=== PATIENT | female | born 1985 | race Caucasian/White ===

== ENCOUNTER 2021-10-20 10:38 | Outpatient (REF) | payer OTHER, SELFPAY | END 2021-10-20 10:39 | disposition home or self-care (01) | LOC: HO.LAB 10:38 | PROVIDERS: Visit Provider Internal Medicine | DX: Z20.822 Contact with and (suspected) exposure to COVID-19 (principal) | CPT/HCPCS: C9803; U0003; U0005 ==

== ENCOUNTER 2024-05-15 18:17 | Outpatient (REF) | payer SELFPAY ==
[2024-05-18 16:34] LABS: C. trachomatis RNA TMA NOT DETECTED (NOT DETECTED); N. gonorrhoeae RNA TMA NOT DETECTED (NOT DETECTED); Trichomonas (NAAT) NOT DETECTED (NOT DETECTED)
== END 2024-05-15 18:18 | disposition home or self-care (01) ==
LOC: HO.HHCLNP 18:17
PROVIDERS: Visit Provider Advanced Practice Midwife
DX: Z11.3 Encounter for screening for infections with a predominantly sexual mode of transmission (principal); Z12.4 Encounter for screening for malignant neoplasm of cervix
CPT/HCPCS: 36415; 87491; 87591; 87661

== ENCOUNTER 2024-05-16 13:27 | Outpatient (REF) | payer SELFPAY ==
[2024-05-17 08:43] LABS: HBS Num1 9.16 mIU/mL (0-7.99); HBc Num1 0.13 S/CO (0.00-0.79); HBsAGNum1 0.28 S/CO (0.00-0.99); HIV AB/AG Nonreactive (Nonreactive); HIV Num 1 0.05 S/CO (0.00-0.99); Hepatitis B Core Antibody Nonreactive (Nonreactive); Hepatitis B Surface Antigen Negative (Negative); ~Hepatitis C Antibody Nonreactive (Nonreactive)
[2024-05-17 08:46] LABS: Syphilis Screen Nonreactive (Nonreactive)
[2024-05-17 09:35] LABS: ~Hepatitis B Surface Antibody GRAYZONE (Nonreactive)
== END 2024-05-16 13:28 | disposition home or self-care (01) ==
LOC: HO.HHCL 13:27
PROVIDERS: Visit Provider Advanced Practice Midwife
DX: Z11.3 Encounter for screening for infections with a predominantly sexual mode of transmission (principal)
CPT/HCPCS: 36415; 86704; 86706; 86780; 86803; 87340; 87389

== ENCOUNTER 2024-06-21 10:53 | Outpatient (AMB) | payer OTHER, SELFPAY ==
--- NOTE | 2024-06-21 11:14 | A.OFFVIS_ITS ---
Vital Signs 3 06/21/24 11:20 Height 5 ft 1 in Weight 160 lb 4 oz BMI 30.3 BP 129/81 Blood Pressure Location Lt brachial Position Sitting Pulse 80 Intake Visit Reasons: bilateral breast mass Intake Note: Patient is seen in office for evaluation of a bilateral breast mass. Pt c/o: left breast mass has always been there, right breast mass for about 6 month with nipple discharge when squeezing, green , no odor, painful at times, had mammogram and ultrasound done at [facility] Lt b. 2 o'clock rt b. 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 For the past 6 months she has been having some greenish discharge with an area of swelling in the 9 to 10 o'clock position. The swelling increases in size and then with light pressure she is able to express the thick greenish appearing discharge. She occasionally will note bleeding with excessive squeezing. She reports a decrease in the size of the area of swelling after the discharge is noted with a decreased in the discomfort. The mass in the left breast is located at the 2 o'clock position close to the axilla and seems to increase in size with periods. The site is tender to palpation. She recently underwent mammogram and ultrasound at [facility] on 03/31/2024. This revealed no mammographic or sonographic evidence of malignancy in either breast. In the right there was a thickened areolar skin with a 3.3 x 0.6 x 2.0 cm in homogeneously hypoechoic nonvascular lesion at the 930 o'clock position along the interface between skin and breast parenchyma. This communicates with the nipple but does not clearly represent a duct. The appearance is most consistent with a complex fluid collection. There is no associated erythema or warmth to suggest abscess. consultation with a breast surgeon is recommended (BI-RADS 4). [facility] Surgical History History of 2 sections Social History Alcohol intake: current Patient Tobacco Use Status: Never used Tobacco Female Reproductive History Menstrual Age of Menarche: 16 Date of last menstrual period: 05/21/24 Total pregnancies: 2 Number of Living Children: 2 Review of Systems Const All systems reviewed & are unremarkable except as noted in HPI and below Denies chills, Denies fever(s), Denies headache(s), Denies poor appetite and Denies weakness ENT Denies headache(s) Card Denies chest pain, Denies irregular heart rhythm, Denies palpitations and Denies dyspnea Resp Denies cough, Denies excessive phlegm production and Denies dyspnea GI Denies abdominal pain, Denies bloating, Denies change in bowel habits, Denies constipation, Denies heartburn, Denies diarrhea, Denies nausea and Denies vomiting Denies urinary frequency and Reports nipple discharge Musc Denies back pain, Denies muscle weakness and Denies numbness Skin/Breast Reports breast swelling, Reports breast skin changes, Reports breast pain, Reports breast mass, Denies changing lesions, Reports nipple discharge and Denies unusual bruising Neuro Denies headache(s), Denies numbness, Denies paresthesias and Denies weakness Psych Denies anxiety and Denies depression Endo Denies palpitations Matt/Lymph Denies lymphadenopathy Physical Exam Const General: cooperative and no acute distress Nutritional Appearance: well nourished Orientation/consciousness: patient oriented x3 Limitations: no limitations HEENT Head: Yes normocephalic and Yes atraumatic Ears: hearing grossly normal bilaterally Chest Other: Left breast: No skin change, no nipple retraction, no nipple discharge, Palpable mass in the 2 o'clock position towards the axilla as noted below, no enlarged lymph nodes. Right breast: No skin change, no nipple retraction, palpable mass as noted below in the areola at the 9 to 10 o'clock position, somewhat fluctuant to palpation but nontender, no enlarged lymph nodes Chest/axillae images: 2 1. area of swelling in the 9-10 o'clock location involving the areolar skin, no erythema to indicate underlying abscess. Minimally tender to palpation. No hard mass noted. 2. Palpable discrete mass in the 2 o'clock position close to the axillary compartment, mobile within the breast tissue. Lesion is tender to palpation. May be an area of increased fibrocystic change or fibroadenoma. Surrounding breast tissue was very dense. Resp Effort & Inspection: normal respiratory effort, no audible wheezes, no cough and no respiratory distress Cardio Jugular venous distension: no JVD GI Inspection: Yes normal to inspection Skin Other: Warm, dry, no rash Neuro General: patient oriented x3 Extrem General: Yes no clubbing, cyanosis or edema Assessment & Plan Assessment & Plan (1) Bilateral breast lump: Code(s): N63.10 - Unspecified lump in the right breast, unspecified quadrant; N63.20 - Unspecified lump in the left breast, unspecified quadrant Category: Medical Plan 39-year-old female patient presenting with complaints of right nipple discharge with a palpable lump in the 9-10 o'clock position as well as a palpable lump in the left breast at the 2 o'clock position. Both findings are confirmed on physical examination. Review of the mammogram and ultrasound revealed no suspicious findings although a collection is identified in the right the areola as noted above. Although the areas appear benign by examination, I would recommend bilateral lumpectomy as a short-stay surgery. After discussion of the procedure, risks, and alternatives, she consents to the bilateral lumpectomy. Coding Level of Care Code New Pt Level 4 (30555) Diagnoses Bilateral breast lump N63.10; N63.20
[2024-06-21 11:20] VITALS: BP 129/81; PULSE 80; BMI 30.3
== END 2024-06-21 11:36 | disposition home or self-care (01) ==
PROVIDERS: Visit Provider Surgery
DX: N64.52 Nipple discharge (principal); N63.10 Unspecified lump in the right breast, unspecified quadrant; N63.20 Unspecified lump in the left breast, unspecified quadrant
CPT/HCPCS: 99204

== ENCOUNTER → 2024-06-21 10:53 | Outpatient (BNVA) | payer OTHER, SELFPAY | PROVIDERS: Visit Provider Surgery | DX: N63.21 Unspecified lump in the left breast, upper outer quadrant (principal); N63.15 Unspecified lump in the right breast, overlapping quadrants | CPT/HCPCS: 99202 ==

== ENCOUNTER 2024-07-03 14:17 | Emergency (ER) | payer OTHER, SELFPAY ==
--- NOTE | ~2024-07-03 | CT_ITS ---
EXAMINATION: HEAD CT WITHOUT CONTRAST CERVICAL SPINE CT WITHOUT CONTRAST CLINICAL INFORMATION: Headache COMPARISON: None. TECHNIQUE: Contiguous axial imaging of the head was performed without the administration of IV contrast. Axial multidetector volumetric images were also performed through the cervical spine without contrast. Multiplanar reconstructed images in coronal and sagittal orientations were submitted. DOSE: 859 mGy-cm FINDINGS: HEAD: There is no evidence of acute intracranial hemorrhage or edema is territorial infarction. No abnormal mass-effect or midline shift. No extra-axial fluid collections. [place] to white matter differentiation is well preserved. The ventricles are normal in size and configuration. No acute calvarial fracture. The sinuses and mastoid air cells are clear. CERVICAL SPINE: Vertebral body heights are maintained. No acute fracture is seen of the vertebral bodies or posterior elements. Vertebral alignment is normal. No subluxation. Straightening of the cervical curvature The craniocervical and atlantoaxial articulations are normal. Small corticated chronic appearing ossification inferior to the atlantodens articulation. Intervertebral disc spaces are maintained. The central bony canal is maintained. . No significant paravertebral soft tissue swelling. No suspicious thyroid findings.. Imaged portions of the lung apices are clear. CT/CT head/brain wo IV con IMPRESSION: 1. No CT evidence of acute intracranial hemorrhage or edema is territorial infarction. 2. No CT evidence of acute fracture or malalignment in the cervical spine.. Electronically signed by: Shane Busby MD 07/03/2024 06:52 PM EDT
--- NOTE | ~2024-07-03 | CT_ITS ---
EXAMINATION: HEAD CT WITHOUT CONTRAST CERVICAL SPINE CT WITHOUT CONTRAST CLINICAL INFORMATION: Headache COMPARISON: None. TECHNIQUE: Contiguous axial imaging of the head was performed without the administration of IV contrast. Axial multidetector volumetric images were also performed through the cervical spine without contrast. Multiplanar reconstructed images in coronal and sagittal orientations were submitted. DOSE: 859 mGy-cm FINDINGS: HEAD: There is no evidence of acute intracranial hemorrhage or edema is territorial infarction. No abnormal mass-effect or midline shift. No extra-axial fluid collections. [place] to white matter differentiation is well preserved. The ventricles are normal in size and configuration. No acute calvarial fracture. The sinuses and mastoid air cells are clear. CERVICAL SPINE: Vertebral body heights are maintained. No acute fracture is seen of the vertebral bodies or posterior elements. Vertebral alignment is normal. No subluxation. Straightening of the cervical curvature The craniocervical and atlantoaxial articulations are normal. Small corticated chronic appearing ossification inferior to the atlantodens articulation. Intervertebral disc spaces are maintained. The central bony canal is maintained. . No significant paravertebral soft tissue swelling. No suspicious thyroid findings.. Imaged portions of the lung apices are clear. CT/CT cervical spine wo IV con IMPRESSION: 1. No CT evidence of acute intracranial hemorrhage or edema is territorial infarction. 2. No CT evidence of acute fracture or malalignment in the cervical spine.. Electronically signed by: Shane Busby MD 07/03/2024 06:52 PM EDT
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
[2024-07-03 14:21] VITALS: BP 128/80; PULSE 91; RESP 18; TEMP 36.6; O2SAT 97; BMI 31.3
[2024-07-03 16:00] VITALS: BP 115/76; PULSE 84; RESP 18; TEMP 36.6; O2SAT 98
[2024-07-03 16:49] LABS: UPreg QC Valid YES; Urine Pregnancy NEGATIVE (NEGATIVE)
[2024-07-03 19:07] VITALS: BP 115/76; PULSE 84; RESP 18; TEMP 36.6; O2SAT 98
== END 2024-07-03 19:07 | disposition home or self-care (01) ==
PROVIDERS: Physician Assistant; Emergency Provider Emergency Medicine Emergency Medical Services; PCP Student in an Organized Health Care Education/Training Program
DX: S09.90XA Unspecified injury of head, initial encounter (principal); R51.9 Headache, unspecified; M54.2 Cervicalgia; V43.52XA Car driver injured in collision with other type car in traffic accident, initial encounter; Y93.89 Activity, other specified; Y92.488 Other paved roadways as the place of occurrence of the external cause; Y99.8 Other external cause status
CPT/HCPCS: 70450; 72125; 81025; 99283; 99284

== ENCOUNTER 2024-08-08 10:57 | Outpatient (REF) | payer OTHER, SELFPAY ==
[2024-08-09 09:01] LABS: HBS Num1 12.38 mIU/mL (0-7.99); ~Hepatitis B Surface Antibody REACTIVE (Nonreactive)
== END 2024-08-08 10:58 | disposition home or self-care (01) ==
LOC: HO.HHCL 10:57
PROVIDERS: Visit Provider Advanced Practice Midwife
DX: Z78.9 Other specified health status (principal)
CPT/HCPCS: 36415; 86706

== ENCOUNTER 2024-08-09 15:19 | Outpatient (REF) | payer OTHER, SELFPAY ==
[2024-08-09 16:07] LABS: MANUAL DIFF FLAG NO
[2024-08-09 16:18] LABS: Basophils Absolute Auto 0.1 X10*3/uL (0.0-0.2); Basophils Percent Auto 0.6 % (0-2); Eosinophils Absolute Auto 0.2 X10*3/uL (0.0-0.4); Hematocrit 45.2 % (37.0-47.0); Hemoglobin 14.6 g/dl (12.0-16.0); Imm Gran Abs Auto 0.04 X10*3/uL (0.00-0.03); Imm Gran Pct Auto 0.5 % (0.0-0.4); Lymphocytes Percent Auto 25.1 % (20-40); Mean Corpuscular HGB Conc 32.3 g/dl (31.0-35.0); Mean Platelet Volume 10.2 fL (9.4-12.3); Monocytes Absolute Auto 0.7 X10*3/uL (0.1-1.2); Monocytes Percent Auto 8.7 % (2-11); Neutrophils Absolute Auto 5.1 x10*3/uL (2.0-8.3); Neutrophils Percent Auto 63.1 % (45-73); Platelet Count 315 X10*3/uL (160-400); Red Blood Count 4.86 X10*6/uL (4.20-5.50); Red Cell Distribution Width 12.8 % (11.0-16.0); White Blood Count 8.1 X10*3/uL (4.8-10.8)
[2024-08-09 16:23] LABS: Estimated Average Glucose 105 mg/dL; Hemoglobin A1C 125.7292 umol/L; Hemoglobin A1c % 5.3 % (<6.0); Total Hemoglobin (HGBA1C) 3688.9095 umol/L
[2024-08-09 16:37] LABS: Anion Gap 14 (12-20); Blood Urea Nitrogen 9 mg/dL (9-16); Calcium 9.7 mg/dL (8.4-10.2); Carbon Dioxide 27 mmol/L (22-29); Chloride 103 mmol/L (96-108); Cholesterol 201 mg/dL (<200); Estimated Glomerular Filt Rate > 60; Glucose Random 98 mg/dL (60-115); HDL Cholesterol 54 mg/dL (>40); LDL Cholesterol Calculated 130 mg/dL (<100); Potassium 3.6 mmol/L (3.3-5.1); Sodium 140 mmol/L (135-145); Triglycerides 85 mg/dL (<150)
[2024-08-09 16:47] LABS: Vitamin D 25-OH Total 30.2 ng/mL (>30)
== END 2024-08-09 15:20 | disposition home or self-care (01) ==
LOC: HO.HHCL 15:19
PROVIDERS: Visit Provider Nurse Practitioner Family
DX: Z00.00 Encounter for general adult medical examination without abnormal findings (principal)
CPT/HCPCS: 36415; 80048; 80061; 82306; 83036; 85025

== ENCOUNTER 2024-08-22 07:10 | Day surgery (SDC) | payer OTHER, SELFPAY ==
[2024-08-16 16:45] VITALS: BMI 30.2
--- NOTE | 2024-08-17 14:08 | P.CONAN_ITS ---
Documented by User: Blank Iqbal NP 08/17/24 14:13 HPI - Anesthesia Eval Consult details Narrative: 39yo Bilateral Breast Lumpectomy Medically optimized [facility] Active Problems Active Problems: All Active Problems Bilateral breast lump (Acute) Past Medical History Medical History (Updated 08/16/24 @ 16:51 by Toshia Fuentes RN) No pertinent past medical history Surgical History Surgical History (Updated 08/16/24 @ 16:51 by Toshia Fuentes RN) Tubal ligation status History of 2 sections Social History Social History Alcohol intake: current Alcohol intake frequency: a few times a month Patient Tobacco Use Status: Never used Tobacco Use of substances other than those prescribed or required for medical reasons: Yes Substance Use Frequency: Daily Have you been hit, kicked, punched, or otherwise hurt by someone within the past year? If so, by whom?: No Are you DNR?: No Advance Directives: No Advance Directives Information Provided: Yes Advance Directives on File: No Recently lost weight without trying: No How much weight loss: Not applicable Eating poorly because of decreased appetite: No Nutrition screen score: 0 Nutrition Risks: No Nutritional Risk Patient : No : No Poor oral hygiene: Yes (missing top tooth x1) Meds Allergies Allergy/AdvReac Type Severity Reaction Status Date / Time No Known Allergies Allergy Verified 08/16/24 16:51 Exam Height,Weight and Vital Signs: Height 5 ft 1 in Weight 72.575 kg Pertinent Lab Results Pertinent Lab Results: Laboratory Tests 08/09/24 15:25 WBC 8.1 Hgb 14.6 Hct 45.2 Plt Count 315 Sodium 140 Potassium 3.6 Chloride 103 Carbon Dioxide 27 BUN 9 Creatinine 0.69 Narrative Narrative: EKG 08/2024 NSR low volt QRS Assessment and Plan Assessment Anesthesia Assessment: Chart Reviewed Documented by User: Flor Alcantara MD 08/22/24 08:15 [facility] Past Medical History Medical History (Updated 08/16/24 @ 16:51 by Toshia Fuentes RN) No pertinent past medical history Family History Family history of problems with anesthesia: No Surgical History Surgical History (Updated 08/16/24 @ 16:51 by Toshia Fuentes RN) Tubal ligation status History of 2 sections History of Problems with Anesthesia: No Social History Social History Alcohol intake: current Alcohol intake frequency: a few times a month Patient Tobacco Use Status: Never used Tobacco Use of substances other than those prescribed or required for medical reasons: Yes Substance Use Frequency: Daily Have you been hit, kicked, punched, or otherwise hurt by someone within the past year? If so, by whom?: No Are you DNR?: No Advance Directives: No Advance Directives Information Provided: Yes Advance Directives on File: No Recently lost weight without trying: No How much weight loss: Not applicable Eating poorly because of decreased appetite: No Nutrition screen score: 0 Nutrition Risks: No Nutritional Risk Patient : No : No Poor oral hygiene: Yes (missing top tooth x1) Meds Allergies Allergy/AdvReac Type Severity Reaction Status Date / Time No Known Allergies Allergy Verified 08/16/24 16:51 Exam Airway Mallampati Class: II (missing one tooth top left, denies anything loose) TM Dist: >3cm Neck ROM: Full Heart: rrr Lungs: cta Assessment and Plan Assessment Anesthesia Assessment: Anesthesia Plan Discussed Final Anesthetic Review Family History of Problems with Anesthesia: No History of Problems with Anesthesia: No NPO: Yes ASA Class: II Final Preanesthetic Review: No Changes in Pt Med Stat, Meds/Allgs Chart Reviewed and Consent Obtained/Reviewed Patient Risk: Low Procedure Risk: Low Anesthetic Plan Anesthetic Plan: GA Disposition: Standard PACU
[2024-08-22] VITALS (7 sets, daily range): BP systolic 109–161; BP diastolic 71–87; PULSE 74–99; RESP 16–20; TEMP 36.3–36.9; O2SAT 97–100
[2024-08-22] MEDS: Lactated Ringers 1,000 ML 100 ML IVCONT (07:48)
--- NOTE | 2024-08-22 07:51 | PC.NURSE ---
pt last smoked cigerette and marijuana 2 days ago and motrin 2 weeks last dose
--- NOTE | 2024-08-22 08:00 | MHC.SHP ---
Pre-Procedural Eval Section A - 24 Hr Update-Section A only Date of Service: 08/22/24 The patient is an INPATIENT: No Changes since office visit: Yes Patient answered all questions; No Cold of Flu in the past 2 weeks, No New Medical Problems and No Changes in Medication The patient has been examined within 24 hours of the surgical procedure. The History & Physical has been completed within 30 days and I have reviewed it.: No Section B - Complete if H&P > 30 days Chief Complaint: Unspecified lump in the right breast, unspecified Details of Present Illness: Changes since initial office visit. No new symptoms. Relevant Family History (Specify if Yes): No Relevant Social History: None Present Medications: see Short Stay Collaborative assessment Medical History: No relevant PMH History of Previous Operations: No relevant previous surgery Allergies: Allergies Allergy/AdvReac Type Severity Reaction Status Date / Time No Known Allergies Allergy Verified 08/16/24 16:51 Review of Systems Sugical H&P ROS: Negative: Constitution, Cardiovascular, Respiratory, Hem-Onc and Gastrointestinal Exam Surgical H&P Exam: Normal: Heart, Normal: Lungs, Normal: Abdomen and Normal: Skin Plan Diagnosis/Plan: Unchanged I have reviewed the history and physical and performed a pertinent physical examination on my patient. No changes have occurred unless specified. Time Spent With Patient Time: Total time managing care of this patient today ____ minutes.
--- NOTE | 2024-08-22 09:52 | W.PM.OPN ---
Operative Note Operative Note Date of Service: 08/22/24 Narrative: Preoperative diagnosis: Bilateral breast lumps Postoperative diagnosis: Same Procedure: Bilateral breast lumpectomy Surgeon: Stu Marmolejo MD Senior Strategy Analyst: Maria Victoria Crocker PA-C Anesthesia: General LMA Indications for procedure: 39-year-old female patient presenting with bilateral breast lumps including a palpable right breast mass located below the areola at the 9-12 o'clock location, tender to palpation measuring approximately 2 cm in diameter. A 2nd lesion in the left breast located in the 2 o'clock position a proximally 10 cm from the nipple also a proximally 2 cm in diameter, also tender to palpation. Workup with mammogram and ultrasound were negative for any suspicious findings. Patient requested excision of the 2 symptomatic breast lesions. Operative findings: Bilateral breast lumps as noted above, path pending Specimen: Bilateral breast lumps Estimated blood loss: 5 mL Complications: None Procedure details: Patient was brought to the OR and placed in a supine position. After administering general anesthesia the patient's bilateral breasts were prepped with ChloraPrep and draped in a sterile fashion. A surgical time-out was called and consent confirmed. Patient received preoperative antibiotics and Venodyne boots were in place. Beginning in the right breast local anesthesia was infiltrated between the 9 and 12:00 o'clock location in the areolar margin. An incision was then made in a curvilinear fashion at the margins of the areola. This was carried out through subcutaneous tissue. Superior and inferior skin flaps were then created with the electrocautery. Allis clamp was then used to grasp the palpable mass. Electrocautery was then used to dissect the mass from the surrounding subcutaneous and breast tissue. Hemostasis was assured at all times using electrocautery. The mass was passed off the table and sent to pathology for further examination. After assuring adequate hemostasis the deep breast tissue was reapproximated using interrupted 3-0 Polysorb sutures. Dermis was reapproximated using interrupted 3-0 Polysorb sutures. Skin was closed using a running subcuticular 4-0 Polysorb suture. Attention was then directed to the left breast. Palpable mass located in the 2 o'clock position was identified. Local anesthesia was then infiltrated transversely over the palpable mass. Incision was then made with a scalpel and carried out through subcutaneous tissue. Superior and inferior skin flaps were then created with electrocautery. The mass was then grasped with an Allis clamp and electrocautery used the dissected free from the surrounding breast tissue. Hemostasis was assured at all times using electrocautery. The mass was excised and sent to pathology for further examination. Wounds were then irrigated with saline solution and suctioned dry. Deep breast tissue was reapproximated using interrupted 3-0 Polysorb sutures. Dermis was reapproximated using interrupted 3-0 Polysorb sutures. Skin was then closed using a running subcuticular 4-0 Polysorb suture. Sterile dressings consisting of Steri-Strips, 2 x 2 gauze and Tegaderm were then applied. The patient tolerated the procedure well. Sponge, instrument, and needle counts reported as correct. The patient was transferred to PACU in stable condition.
== END 2024-08-22 11:30 | disposition home or self-care (01) ==
PROVIDERS: PCP Student in an Organized Health Care Education/Training Program; Visit Provider Surgery
PROC: (CPT 19301; principal; 2024-08-22 09:00)
DX: N64.89 Other specified disorders of breast (principal); N60.91 Unspecified benign mammary dysplasia of right breast; N60.82 Other benign mammary dysplasias of left breast; N64.52 Nipple discharge; Z98.890 Other specified postprocedural states; Z98.51 Tubal ligation status
CPT/HCPCS: 19301; 88305; 88307; 88341; 88342; J0690; J1100; J2003; J2250; J2405; J2704; J2795; J3010

== ENCOUNTER → 2024-08-22 07:10 | Outpatient (BNV) | payer OTHER, SELFPAY | PROVIDERS: PCP Student in an Organized Health Care Education/Training Program; Visit Provider Surgery | DX: N63.21 Unspecified lump in the left breast, upper outer quadrant (principal); N63.15 Unspecified lump in the right breast, overlapping quadrants | CPT/HCPCS: 19301 ==

== ENCOUNTER 2024-09-04 09:38 | Outpatient (AMB) | payer OTHER, SELFPAY ==
--- NOTE | 2024-09-04 09:38 | MHC.OFFVIS ---
Vital Signs 09/04/24 09:49 Height 5 ft 1 in Weight 161 lb BMI 30.4 BP 135/65 Blood Pressure Location Lt brachial Position Sitting Pulse 94 Intake Visit Reasons: S/P bilateral breast lumpectomy Intake Note: Patient is seen in office for post op assessment post bilateral lumpectomy. Patient c/o: no concerns regarding surgery surgery: 08/22/24 Server Programmer Required: No Accompanied by: Self / Same As Patient Allergies No Known Allergies Allergy (Verified 09/04/24 09:44) HPI Comments Details: 39-year-old female patient presenting for evaluation of bilateral breast masses. For the past 6 months she has been having some greenish discharge with an area of swelling in the 9 to 10 o'clock position. The swelling increases in size and then with light pressure she is able to express the thick greenish appearing discharge. She occasionally will note bleeding with excessive squeezing. She reports a decrease in the size of the area of swelling after the discharge is noted with a decreased in the discomfort. The mass in the left breast is located at the 2 o'clock position close to the axilla and seems to increase in size with periods. The site is tender to palpation. She recently underwent mammogram and ultrasound at [facility] on 03/31/2024. This revealed no mammographic or sonographic evidence of malignancy in either breast. In the right there was a thickened areolar skin with a 3.3 x 0.6 x 2.0 cm in homogeneously hypoechoic nonvascular lesion at the 930 o'clock position along the interface between skin and breast parenchyma. This communicates with the nipple but does not clearly represent a duct. The appearance is most consistent with a complex fluid collection. There is no associated erythema or warmth to suggest abscess. consultation with a breast surgeon is recommended (BI-RADS 4). She underwent a bilateral breast lumpectomy on 08/22/2024. Pathology revealed in the right breast focal atypical lobular hyperplasia along with chronic inflammation and granulation tissue, pseudoangiomatous stromal hyperplasia, fibrocystic change with the usual ductal hyperplasia and focal apocrine metaplasia. The left breast revealed pseudoangiomatous stromal hyperplasia and fibrocystic change along with periductal and Ramila lobular chronic inflammation. She returns today for wound check. [facility] Medical History (Updated 09/04/24 @ 09:51 by Stu Marmolejo MD) Atypical lobular hyperplasia (ALH) of right breast No pertinent past medical history Surgical History History of lumpectomy of both breasts (08/22/24) Tubal ligation status History of 2 sections Social History Alcohol intake: current Alcohol intake frequency: a few times a month Patient Tobacco Use Status: Never used Tobacco Female Reproductive History Menstrual Age of Menarche: 16 Physical Exam Chest Chest/axillae images: 1. Incision upper outer quadrant left breast is clean, dry, and intact 2. Incision upper outer quadrant areolar margin right breast is clean, dry, and intact. Assessment & Plan Assessment & Plan (1) Atypical lobular hyperplasia (ALH) of right breast: Code(s): N60.91 - Unspecified benign mammary dysplasia of right breast Category: Medical Plan 39-year-old female patient presenting with a palpable breast lump bilaterally returning following bilateral breast lumpectomies on 08/22/2024 for wound check. Pathology revealed right breast focal atypical lobular hyperplasia which places her at an increased risk for breast cancer. I recommended evaluation for risk reduction by Medical Oncology. She will also return in 6 months for clinical breast examination. Follow-up mammogram is recommended in 1 year. She expressed understanding and agrees with the plan. Coding Level of Care Code Global (47472) Diagnoses Atypical lobular hyperplasia (ALH) of right breast N60.91
[2024-09-04 09:49] VITALS: BP 135/65; PULSE 94; BMI 30.4
== END 2024-09-04 09:52 | disposition home or self-care (01) ==
LOC: HO.HGS 09:38
PROVIDERS: PCP Student in an Organized Health Care Education/Training Program; Visit Provider Surgery
DX: N60.91 Unspecified benign mammary dysplasia of right breast (principal)
CPT/HCPCS: 99024

== ENCOUNTER → 2024-09-04 09:38 | Outpatient (BNVA) | payer OTHER, SELFPAY | PROVIDERS: PCP Student in an Organized Health Care Education/Training Program; Visit Provider Surgery | DX: N60.91 Unspecified benign mammary dysplasia of right breast (principal); Z09 Encounter for follow-up examination after completed treatment for conditions other than malignant neoplasm; Z98.890 Other specified postprocedural states | CPT/HCPCS: 99212 ==

== ENCOUNTER → 2024-09-28 10:47 | Outpatient (BNV) | payer OTHER, SELFPAY | PROVIDERS: PCP Nurse Practitioner Family; Referring Provider Surgery; Visit Provider Internal Medicine Medical Oncology | DX: N60.81 Other benign mammary dysplasias of right breast (principal); N60.82 Other benign mammary dysplasias of left breast | CPT/HCPCS: 99204 ==

== ENCOUNTER 2024-11-28 13:25 | Outpatient (REF) | payer OTHER, SELFPAY ==
[2024-11-28 14:35] LABS: Bacterial Vaginosis PCR NEGATIVE (Negative); Candida Group PCR DETECTED (Not Detect); Candida glab krusei PCR NOT DETECTED (Not Detect); Trichomonas vaginalis PCR NOT DETECTED (Not Detect)
--- OUTSIDE RECORDS SUMMARY | 2024-11-28 15:35 | XMS_ITS | Clinical Summary ---
Author Organization [employer] Address [address] [facility] [address] [place] [address] Care Team Providers Care Barytes Grinder Name Role Phone Naa Ramírez HAIR SPRING WINDER Primary Care Provider [phone] Allergies No known active allergies Medications benzoyl peroxide (PanOxyl Foaming Wash) 10 % external washIndications: Hidradenitis suppurativa Apply topically Once per day. 227 g 1 4 09/07/20 25 Active minocycline 100 MG capsuleIndicatio ns:Hidradenitis suppurativa Take 1 capsule (100 mg) by mouth 2 times daily. 180 capsule 4 Active spironolactone (Aldactone) 100 MG tabletIndication s:Hidradenitis suppurativa Take 1 tablet (100 mg) by mouth Once per day. 90 tablet 2 4 Active tamoxifen (Nolvadex) 20 MG chemo tablet Take 1 tablet by mouth Once per day. 4 Active Active Problems Problem Noted Date Diagnosed Date Atypical lobular hyperplasia (ALH) of breast Healthcare maintenance 08/08/2024 Assessment & Plan (08/08/2024 12:09 PM EDT): Patient was seen for transfer and establishment of care today, main focus on preop. Flu and Tda vaccines given. Pap smear scheduled. Labs ordered Encounter for immunization 08/08/2024 Assessment & Plan (08/08/2024 12:03 PM EDT): Tdap and flu vaccine given. Mass of breast 08/08/2024 Assessment & Plan (08/08/2024 12:05 PM EDT): Please see preop notes Concussion with loss of consciousness 08/08/2024 Assessment & Plan (08/08/2024 12:03 PM EDT): Improving symptoms. Neuro check negative. Patient advised brain rest and to return to the office if symptoms worsens Preop examination 08/08/2024 Encounters Date Type Department Care Team Description 11/28/2024 10:00 AM EST Procedure Visit [address] [address] Naa Ramírez FNP Routine cervical smear (Primary Dx); Atypical lobular hyperplasia (ALH) of breast; Pelvic pain; Vaginal discharge 11/20/[address] [address] Mara Elder [place] Chart Prep 09/14/[address] [address] Olivia Rhoades [place] CHART PREP 09/07/2024 11:00 AM EDT Office Visit [address] [address] Zoraida Leslie MD Hidradenitis suppurativa (Primary Dx) 09/07/2024 Travel 09/05/2024 Travel 09/04/2024 Travel from Last 3 Months Immunizations Name Administration Dates Next Due Influenza, seasonal, injectable, preservative fr ee 08/08/2024 Tdap 08/08/2024 Family History Medical History Relation Name Comments Diabetes Father Relation Name Status Comments Father Social History Tobacco Use Types Packs/Day Years Used Date Smoking Tobacco: Never Smokeless Tobacco: Never Tobacco Cessation:Counseling Given: Not Answered Alcohol Use Standard Drinks/Week Comments Not Currently 0 (1 standard drink = 0.6 oz pure alcohol) Drinks a bottleof medium size vodka every weekend Depression Answer Date Recorded Patient Health Questionnaire-9 Score 0 08/08/2024 Patient Health Questionnaire-9 Score 0 08/08/2024 Last PHQ-9: Questionnaire Data Not on file 1 Housing Stability Answer Date Recorded What is your housing situation today? I have kyle sing 07/27/[address] you li ve. Do you have problems with any of the following? None of the above 07/27/2024 Food Insecurity Answer Date Recorded Within the past 12 months, y ou worried that your food would run out before you got money to buy more: Never True 07/27/2024 Within the past 12 months,th e food you bought just didn't last and you didn't have enough money to get more: Never True Transportation Answer Date Recorded In the past 12 months, has l ack of transportation kept you from medical appts, meetings, work or from getting things needed for daily living? No 07/27/2024 Utilities Answer Date Recorded In the past 12 months, has t he electric, gas, oil or water company threatened to shut off services in your home? No 07/27/2024 Depression Answer Date Recorded Patient Health Questionnaire-2 Score 0 08/08/2024 Internet Access Answer Date Recorded Internet Access Q1 Yes 07/27/2024 Internet Access Q2 Not on file 07/27/2024 Comments No Sex and Gender Information Value Date Recorded Sex Assigned at Female 09/06/2022 10:19 AM EDT Legal Sex Female 10:19 AM EDT Gender Identity Choose not to disclose 10:19 AM EDT Sexual Orientation Don't know 09/06/2022 10 :19 AM EDT Last Filed Vital Signs Vital Sign Reading Time Taken Comments Blood Pressure 127/81 11/28/2024 10:09 AM EST Pulse 90 11/28/2024 10:09 AM EST Temperature 36.9 ??C (98.4 ??F) 11/28/2024 10:[address] Respiratory Rate 18 11/28/2024 10:09 AM EST Oxygen Saturation 99% 11/28/2024 10:09 AM EST Inhaled Oxygen Concentration - - Weight 71.7 kg (158 lb) 11/28/2024 10:09 AM EST Height 154.9 cm (5' 1 ) 11/28/2024 10:09 AM EST Body Mass Index 29.85 11/28/2024 10:09 AM EST Plan of Treatment Upcoming Encounters Date Type Department Care Team (Late st Contact Info) Description 12/14/2024 2:15 PM EST Office Visit [facility] [address] [place] [address] Zoraida Leslie MD [address] [place] [address] Health Maintenance Due Date Last Done Comments Dental Oral Exam 1985 Dental Prophylaxis 1985 Dental X-Ray: Bitewings 1985 Dental X-Ray: Full Mouth 1985 Hepatitis A Vaccines (1 of 2 - Risk 2-dose series) 2004 Hepatitis B Vaccines (1 of 3 - 19+ 3-dose series) 2004 Pap Smear 2006 Cervical Cancer Screening 2015 HPV/Cotest 2015 COVID-19 Vaccine (2023-2 5 season) 2024 10/15/2021, 03/09/2021, 02/09/2021 SDOH Screening 07/27/2025 07/27/2024 Alcohol/Substance Use Screening 08/08/2025 08/08/2024 Depression Screening 08/08/2025 08/08/2024, 08/08/2024 Family Planning (PISQ) 08/08/2025 08/08/2024 Tobacco Screening 11/28/2025 11/28/2024 DTaP/Tdap/Td Vaccines (2 - T d or Tdap) 08/08/2034 08/08/2024 Zoster Vaccines (1 of 2) 2035 RSV Patients and Patients Aged 60 years or older (1 - 1-dose 75+ series) 2060 HIV Screening Completed 05/16/2024 Hepatitis C Screening Completed 05/16/2024 Influenza Vaccine Completed 08/08/2024 HIB Vaccines Aged Out No longer eligi ble based on patient's age to complete this topic HPV Vaccines Aged Out No longer eligi ble based on patient's age to complete this topic IPV Vaccines Aged Out No longer eligi ble based on patient's age to complete this topic Meningococcal Vaccine Aged Out No juan maggie eligible based on patient's age to complete this topic Pneumococcal Vaccine: Pediatrics (0 to 5 Years) and At-Risk Patients (6 to 64 Years) Aged Out No longer eligible b ased on patient's age to complete this topic RSV under 20 months Aged Out No longe r eligible based on patient's age to complete this topic Rotavirus Vaccines Aged Out No longer eligible based on patient's age to complete this topic Procedures Procedure Name Priority Date/Time Associated Diagnosis Comments BACTERIAL VAGINOSIS PANEL Routine 11/28/2024 11:15 AM EST Vaginal discharge HEPATITIS C AB W/REFL TO HCV RNA, QN, PCR Routine 05/16/2024 1:28 PM EDT Encntr screen for infections w sexl mode of transmiss HIV 1/2 ANTIGEN/ANTIBODY, FOURTH GENERATION W/RFL Routine 05/16/2024 1:28 PM EDT Encntr screen for infections w sexl mode of transmiss from Last 3 Months or Most Recently Relevant to Health Maintenance Results * (ABNORMAL) Bacterial Vaginosis Panel (11/28/2024 11:15 AM EST) TRICHOMONAS VAGINALIS DETECTION BY PCR NOT DETECTED Not Detect [facility] BACTERIAL VAGINOSIS DETECTION BY PCR NEGATIVE Negative [facility] Comment:The BV organism targ ets of the Xpert Xpress MVP test can becommensal in women; Xpert Xpress MVP positive results forbacterial vaginosis should be considered in conjunction withother clinical and patient information to determine thedisease status. Organisms that are not detected by the XpertXpress MVP test have also been reported to be associatedwith BV and aerobic vaginitis.The Xpert Xpress MVP test performance has not been evaluatedin patients under the age of 14. ADRIANA GROUP DETECTION BY PCR DETECTED(A) Not Detect [facility] Adriana glab krusei PCR NOT DETECTED Not Detect [facility] Swab Vaginal structure / Unknown 11/28/2024 11:15 AM EST 11/28/2024 1:31 PM EST us Naa Ramírez [facility]ER LAB MICROBIOLOGY - GENERAL ORD ERABLES Final Result [facility] [address] [place] [phone] * Hepatitis C Antibody with Reflex to HCV, RNA, Quantitative, Real-Time PCR (05/16/2024 1:28 PM EDT) Pathologist [facility] Hepatitis C Antibody Nonreactive Nonreactive [facility] Comment:Antibodies to HCV no t detected; does not exclude early acuteHCV infection. Blood Venous blood specimen / Unknown 05/16/2024 1:28 PM EDT 05/16/2024 3:51 PM EDT Evelyne Keita [facility] LAB BLOOD ORDERABLES Renuka l Result Performing Organization Address [facility] Co de Phone Number [facility] [address] [place] [phone] * HIV-1/2 Antigen and Antibodies, Fourth Generation, with Reflexes (05/16/2024 1:28 PM EDT) [facility] HIV AB/AG Nonreactive Nonreactive [facility] Comment:HIV-1 p24 Ag and/or HIV-1/HIV-2 Ab not detected.A test result that is nonreactive does not exclude thepossibility of exposure to or infection with HIV-1 and/orHIV-2. Nonreactive results in this assay for individualswith prior exposure to HIV-1 and/or HIV-2 may be due toantigen and antibody levels that are below the limit ofdetection of this assay.The Attributor HIV Ag/Ab Combo assay result andsupplemental assay results should be interpreted inconjunction with the patient's clinical presentation,history and other laboratory results. If the results areinconsistent with clinical evidence, additional testing issuggested to confirm the result. Blood Venous blood specimen / Unknown 05/16/2024 1:28 PM EDT 05/16/2024 3:[address] [facility]elyneg[facility]elle [facility] BLOOD ORDERABLES Renuka l Result Performing Organization Address [facility]/ZIP Co de Phone Number [facility] [address] [place] [address] [phone] from Last 3 Months or Most Recently Relevant to Health Maintenance Insurance [facility]SN [employer]IAL [facility] AD[place] Care Teams Barytes Grinder Relationship Specialty Start Date End Date Naa Ramírez FNP [address] [place] [phone] PCP - General Family Medicine 08/08/24
--- OUTSIDE RECORDS SUMMARY | 2024-11-28 15:35 | XMS_ITS | Encounter Summary ---
Author Organization [employer] Address [address] [facility] [address] [place] [address] Care Team Providers Care Retention Representative Name Role Phone Naa Ramírez CONTINUOUS PICKLING LINE PICKLER Primary Care Provider Encounter Details Date Type Department Care Team (Late Contact Info) Description 05/17/2024 Orders Only [facility] [address] [place] [phone] Evelyne Keita CNM [address] [place] [address] [phone] No history of hepatitis B vaccination (Primary Dx) Social History Tobacco Use Types Packs/Day Years Used Date Smoking Tobacco: Never Smokeless Tobacco: Never Alcohol Use Standard Drinks/Week Comments Yes 0 (1 standard drink = 0.6 oz pur e alcohol) Comments No Sex and Gender Information Value Date Recorded Sex Assigned at Female 09/06/2022 10:19 AM EDT Legal Sex Female 10:19 AM EDT Gender Identity Choose not to disclose 10:19 AM EDT Sexual Orientation Don't know 09/06/2022 10 :19 AM EDT documented as of this encounter Plan of Treatment Upcoming Encounters Date Type Department Care Team (Late Contact Info) Description 12/14/2024 2:15 PM EST Office Visit [facility] [address] [place] [phone] Zoraida Leslie MD [address] [place] [phone] documented as of this encounter Procedures Procedure Name Priority Date/Time Associated Diagnosis Comments HEPATITIS B SURFACE ANTIBODY, QUALITATIVE Routine 08/08/2024 11:03 AM EDT No history of hepatitis B vaccination documented in this encounter Results * Hepatitis B Surface Antibody, Qualitative (08/08/2024 11:03 AM EDT) ~Hepatitis B Surface Antibody REACTIVE Nonreactive [facility] Comment:REACTIVE: > 11.99 mI U/mL Blood Venous blood specimen / Unknown 08/08/2024 11:03 AM EDT 08/08/2024 1:43 PM EDT us Evelyne DONATO LAB BLOOD ORDERABLES Renuka del valle Result [facility] [address] [place] [phone] documented in this encounter Visit Diagnoses Diagnosis No history of hepatitis B vaccination- Primary documented in this encounter Care Teams Retention Representative Relationship Specialty Start Date End Date Naa Ramírez FNP [address] [place] [address] PCP - General Family Medicine 08/08/24 documented as of this encounter
--- OUTSIDE RECORDS SUMMARY | 2024-11-28 15:35 | XMS_ITS | Encounter Summary ---
Author Organization [employer] Address [address] [facility] [facility] [address] [place] [address] Care Team Providers Care Technical Translator Name Role Phone Naa Ramírez AUTOMATIC CLIPPER Primary Care Provider [phone] Encounter Details Date Type Department Care Team ([facility] Contact Info) Description 12/20/2022 Abstract [facility] [address] [place] [phone] Kamran Martinez, DMD [address] [place] [address] Social History Tobacco Use Types Packs/Day Years Used Date Smoking Tobacco: Never Smokeless Tobacco: Never Alcohol Use Standard Drinks/Week Comments Yes 0 (1 standard drink = 0.6 oz pur e alcohol) Comments Unknown Sex and Gender Information Value Date Recorded Sex Assigned at Female 09/06/2022 10:19 AM EDT Legal Sex Female 10:19 AM EDT Gender Identity Choose not to disclose 10:19 AM EDT Sexual Orientation Don't know 09/06/2022 10 :19 AM EDT COVID-19 Exposure Response Date Recorded In the last 10 days, have yo u been in contact with someone who was confirmed or suspected to have Coronavirus/COVID-19? No / Unsure 12/14/2022 10:00 AM EST documented as of this encounter Plan of Treatment Upcoming Encounters Date Type Department Care Team ([facility] Contact Info) Description 12/14/2024 2:15 PM EST Office Visit [facility] [address] [place] [phone] Zoraida Leslie MD [address] [place] [address] documented as of this encounter Visit Diagnoses Not on filedocumented in this encounter Care Teams Technical Translator Relationship Specialty Start Date End Date Naa Ramírez FNP [address] [place] [phone] PCP - General Family Medicine 08/08/24 documented as of this encounter
--- OUTSIDE RECORDS SUMMARY | 2024-11-28 15:35 | XMS_ITS | Encounter Summary ---
Author Organization [employer] Address [address] [place] [address] Care Team Providers Care Hand Bindery Assembly Worker Name Role Phone Naa Ramírez DIRECTOR SMB SALES Primary Care Provider Encounter Details Date Type Department Care Team ([facility] Contact Info) Description 02/14/2023 Abstract [facility] ADULT DENTAL [address] [place] [address] Kamran Martinez, DAVONTE [address] [place] [address] Social History Tobacco Use Types Packs/Day Years [...] suspected to have Coronavirus/COVID-19? No / Unsure 02/15/2023 8:56 AM EDT documented as of this encounter Plan of Treatment Upcoming Encounters Date Type Department Care Team ([facility] Contact Info) Description 12/14/2024 2:15 PM EST Office Visit [facility] MEDICINE [address] [place] [address] Zoraida Leslie MD [address] [place], [place] [phone] documented as of this encounter Visit Diagnoses Not on filedocumented in this encounter Care Teams Hand Bindery Assembly Worker Relationship Specialty Start Date End Date Naa Ramírez FNP [address] [place] [address] [phone] PCP - General Family Medicine 08/08/24 documented as of this encounter
--- OUTSIDE RECORDS SUMMARY | 2024-11-28 15:35 | XMS_ITS | Encounter Summary ---
Author Organization [employer] [facility] Address [address] [place] [address] 7t [place] [address] Care Team Providers Care Leverman Name Role Phone Naa Ramírez Primary Care Provider [phone] Reason for Referral * Imaging (Routine) - Authorized Specialty Diagnoses / Procedures Referred By Contac t Referred To Contact Radiology Diagnoses Pelvic pain Procedures US Pelvis Transvaginal Naa Ramírez FNP [address] [place] [address] Phone: tel: fax: [address] Phone: tel: fax: Referral ID Status Reason Start Date Expiration Date V isits Requested Visits Authorized [id number] Authorized 11/28/2024 11/28/2025 1 1 * Imaging (Urgent) - Authorized Specialty Diagnoses / Procedures Referred By Contac t Referred To Contact Radiology Diagnoses Pelvic pain Procedures Us Pelvis complete Naa Ramírez FNP [address] [place] [address] Phone: tel: fax: [address] Phone: tel: fax: Referral ID Status Reason Start Date Expiration Date V isits Requested Visits Authorized [id number] Authorized 11/28/2024 11/28/2025 1 1 Encounter Details Date Type Department Care Team (Latest Contact Info) Description 11/28/2024 10:00 AM EST Procedure Visit [facility] MEDICINE [address] [place] [address] Naa Ramírez FNP [address] [place], [place] [phone] Routine cervical smear (Primary Dx); Atypical lobular hyperplasia (ALH) of breast; Pelvic pain; Vaginal discharge Social History Tobacco Use Types Packs/Day Years Used Date Smoking Tobacco: Never Smokeless Tobacco: Never Alcohol Use Standard Drinks/Week Comments Not Currently 0 (1 standard drink = 0.6 oz pure alcohol) Drinks a bottleof medium size vodka every weekend Depression Answer Date Recorded Patient Health Questionnaire-9 Score 0 08/08/2024 Patient Health Questionnaire-9 Score 0 08/08/2024 Last PHQ-9: Questionnaire Data Not on file 1 Housing Stability Answer Date Recorded What is your housing situation today? I have kyle rankin 07/27/[address] you li [...] AM EDT documented as of this encounter Last Filed Vital Signs Vital Sign Reading [...] Mass Index 29.85 11/28/2024 10:09 AM EST documented in this encounter Plan of Treatment Upcoming Encounters Date Type Department Care Team (Late st Contact Info) Description 12/14/2024 2:15 PM EST Office Visit [facility] MEDICINE [address] [place] [address] Zoraida Leslie MD [address] [place] [address] Scheduled Orders Name Type Priority Associated Diagnoses Order Schedule Pap Smear Pathology and Cytology Routine Routine cervical smear Ordered: 11/28/2024 Us Pelvis complete Imaging Urgent Pelvic pain Expected: 11/28/2024, Expires: 11/28/2025 US Pelvis Transvaginal Imaging Routine Pelvic pain Expected: 11/28/2024, Expires: 11/28/2025 STI testing add on (NG, CT, Trich) Pathology and Cytology Routine Vaginal discharge Ordered: 11/28/2024 documented as of this encounter Procedures Procedure Name Priority Date/Time Associated Diagnosis Comments BACTERIAL VAGINOSIS PANEL Routine 11/28/2024 11:15 AM EST Vaginal discharge documented in this encounter Results * (ABNORMAL) Bacterial Vaginosis Panel (11/28/2024 11:15 AM EST) TRICHOMONAS VAGINALIS DETECTION BY PCR NOT DETECTED Not Detect [facility] BACTERIAL VAGINOSIS DETECTION BY PCR NEGATIVE Negative [facility] Comment:The BV organism targ ets of [...] GROUP DETECTION BY PCR DETECTED(A) Not Detect [facility] Adriana glab krusei PCR NOT DETECTED Not Detect [facility] Swab Vaginal structure / Unknown 11/28/2024 11:15 AM EST 11/28/2024 1:31 PM EST Naa [facility] MICROBIOLOGY - GENERAL ORD ERABLES Final Result [facility] [address] [place] [phone] documented in this encounter Visit Diagnoses Diagnosis Routine cervical smear- Primary Screening for malignant neoplasm of the cervix Atypical lobular hyperplasia (ALH) of breast Pelvic pain Vaginal discharge Leukorrhea, not specified as infective documented in this encounter Additional Health Concerns Assessment Noted Time PHQ-9 Depression Total Score: 0 08/08/20 8:59 AM EDT documented as of this encounter Care Teams Leverman Relationship Specialty Start Date End Date Naa Ramírez FNP [address] [place] [phone] PCP - General Family Medicine 08/08/24 documented as of this encounter
--- OUTSIDE RECORDS SUMMARY | 2024-11-28 15:35 | XMS_ITS | Encounter Summary ---
Author Organization [employer] Address [address] [place] [address] Care Team Providers Care Hospice Admitting Clerk Name Role Phone Naa Ramírez CLOTH COVERED HELMET PULLER Primary Care Provider [phone] Reason for Visit * Reason Onset Date Comments Chart Prep 11/20/2024 Encounter Details Date Type Department Care Team ([facility] Contact Info) Description 11/20/2024 Telephone [facility] MEDICINE [address] [place], [place] [phone] Mara Elder [place] Chart Prep Social History Tobacco Use Types Packs/Day Years [...] AM EDT documented as of this encounter Miscellaneous Notes * Telephone Encounter - Mara Elder [place] - 11/20/2024 10:26 AM EST Chart Prep Labs: done Images: done Vaccines due: Covid Due, Hep A Due, and Hep B Due Referrals: Breast Surgery completed Screenings: Not Applicable Overdue care gaps: None documented in this encounter Plan of Treatment Upcoming Encounters Date Type Department Care Team (Late st Contact Info) Description 12/14/2024 2:15 PM EST Office Visit [facility] MEDICINE [address] [place] [address] Zoraida Leslie MD [address] [place] [address] documented as of this encounter Visit Diagnoses Not on filedocumented in this encounter Additional Health Concerns Assessment Noted Time PHQ-9 Depression Total Score: 0 08/08/20 8:59 AM EDT documented as of this encounter Care Teams Hospice Admitting Clerk Relationship Specialty Start Date End Date Naa Ramírez FNP [address] [place] [address] PCP - General Family Medicine 08/08/24 documented as of this encounter
--- OUTSIDE RECORDS SUMMARY | 2024-11-28 15:36 | XMS_ITS | Encounter Summary ---
Author Organization [employer] [facility] Address [address] [facility] [address] [place] [address] Care Team Providers Care Jaw Skinner Name Role Phone Naa Ramírez Primary Care Provider [phone] Encounter Details Date Type Department Care Team (Latest Contact Info) Description 01/15/2021 Abstract [facility] CONVERSIONS Dental, Provider, DDS Social History Tobacco Use Types Packs/Day Years Used Date Smoking Tobacco: Never Assessed Comments Unknown Sex and Gender Information Value [...] Description 12/14/2024 2:15 PM EST Office Visit [facility] MEDICINE [address] [place] [address] Zoraida Leslie MD [address] [place] [address] documented as of this encounter Visit Diagnoses Not on filedocumented in this encounter Care Teams Jaw Skinner Relationship Specialty Start Date End Date Naa Ramírez FNP [address] [place] [address] PCP - General Family Medicine 08/08/24 documented as of this encounter
[2024-11-30 22:37] LABS: C. trachomatis RNA TMA NOT DETECTED (NOT DETECTED)
[2024-12-04 12:20] LABS: HPV Genotype 16 Negative (Negative); HPV Genotype 18 Negative (Negative); HPV High Risk Negative (Negative)
[2024-12-07 12:06] LABS: N. gonorrhoeae RNA TMA NOT DETECTED (NOT DETECTED)
[2024-12-07 12:07] LABS: Trichomonas (NAAT) NOT DETECTED
== END 2024-11-28 13:26 | disposition home or self-care (01) ==
LOC: HO.HHCLNP 13:25
PROVIDERS: Visit Provider Nurse Practitioner Family
DX: N89.8 Other specified noninflammatory disorders of vagina (principal); Z12.4 Encounter for screening for malignant neoplasm of cervix; Z11.51 Encounter for screening for human papillomavirus (HPV)
CPT/HCPCS: 81515; 87491; 87591; 87626; 87661; 88175

== ENCOUNTER → 2024-12-06 15:48 | Outpatient (BNV) | payer OTHER, SELFPAY | PROVIDERS: PCP Nurse Practitioner Family; Visit Provider Radiology Diagnostic Radiology | DX: N88.8 Other specified noninflammatory disorders of cervix uteri (principal) | CPT/HCPCS: 76830; 76856 ==

== ENCOUNTER 2024-12-28 11:22 | Outpatient (AMB) | payer OTHER, SELFPAY ==
--- NOTE | 2024-12-28 11:31 | MHC.OFFVIS ---
Vital Signs 12/28/24 11:39 Height 5 ft 1 in Weight 154 lb BMI 29.1 BP 136/76 Blood Pressure Location Lt brachial Position Sitting Pulse 113 H Intake Visit Reasons: recurrence breast lump Intake Note: Patient is seen in office for evaluation of a recurrent breast lump. Pt c/o: admits to redness, swelling, pain in the right breast, onset end of Nov, not on antbx, is on Tamoxifen side effects nausea and hot flashes 6m f/up sched:03/05/25 (B) Accordion Maker Required: Yes Accordion Maker Language: Veterinary Poultry Inspector Services: Accordion Maker Present Accordion Maker Name: Nereida CIFUENTES Information Interpreted: non-clinical & clinical Fiction And Nonfiction Writer Prose: Fiction And Nonfiction Writer Prose Present Accompanied by: Family/Other Allergies No Known Allergies Allergy (Verified 12/28/24 11:39) HPI Comments Details: 39-year-old female patient previously diagnosed with atypical lobular hyperplasia of the right breast returning now with pain and swelling in the right breast at the nipple-areolar complex which developed in 09/26/2024. She reports increased pain and swelling since then without any discharge from the nipple or previous incision. She denies any symptoms in the left breast. Her previous mammogram performed at [facility] on 03/31/2024 revealed no mammographic or sonographic evidence of malignancy in either breast. In the right breast an area of thickened areolar skin measuring 3.3 x 0.6 x 2.0 cm which was inhomogeneously hypoechoic, nonvascular lesion at the 9:30 o'clock position along the interface between skin and breast parenchyma. This communicates with the nipple but does not clearly represent a duct. She subsequently underwent excision of the palpable abnormality on 08/22/2024. Subsequent pathology revealed focal atypical lobular hyperplasia along with dense fibrosis, pseudoangiomatous stromal hyperplasia, and fibrocystic change. She was subsequently evaluated by Dr. Ott due to her high risk of breast cancerwas placed on tamoxifen 20 mg p.o. daily. Menarche age 16, she is 2 para 2. [facility] remaining lifetime risk of breast cancer is 36.3%. [facility] Medical History Atypical lobular hyperplasia (ALH) of right breast No pertinent past medical history Surgical History History of lumpectomy of both breasts (08/22/24) Tubal ligation status History of 2 sections Social History Alcohol intake: current Alcohol intake frequency: a few times a month Patient Tobacco Use Status: Never used Tobacco Female Reproductive History Menstrual Age of Menarche: 16 Review of Systems Const All systems reviewed & are unremarkable except as noted in HPI and below Denies chills, Denies fever(s), Denies headache(s), Denies poor appetite and Denies weakness ENT Denies headache(s) Card Denies chest pain, Denies irregular heart rhythm, Denies palpitations and Denies dyspnea Resp Denies cough, Denies excessive phlegm production and Denies dyspnea GI Denies abdominal pain, Denies bloating, Denies change in bowel habits, Denies constipation, Denies heartburn, Denies diarrhea, Denies nausea and Denies vomiting Denies urinary frequency and Reports nipple discharge Musc Denies back pain, Denies muscle weakness and Denies numbness Skin/Breast Reports breast swelling, Reports breast skin changes, Reports breast pain, Reports breast mass, Denies changing lesions, Reports nipple discharge and Denies unusual bruising Neuro Denies headache(s), Denies numbness, Denies paresthesias and Denies weakness Psych Denies anxiety and Denies depression Endo Denies palpitations Matt/Lymph Denies lymphadenopathy Physical Exam Vital Signs: Last Vital Signs Pulse 113 H 12/28/24 11:39 BP 136/76 12/28/24 11:39 BMI result Body Mass Index 29.1 Const General: cooperative and no acute distress Nutritional Appearance: well nourished Orientation/consciousness: patient oriented x3 Limitations: no limitations HEENT Head: Yes normocephalic and Yes atraumatic Ears: hearing grossly normal bilaterally Chest Other: Left breast: No skin change, no nipple retraction, no nipple discharge, well-healed incision upper outer quadrant Right breast: Well-healed periareolar incision in the upper outer quadrant with fullness below the nipple, tender to palpation. There is also redness in the skin at the upper inner quadrant as noted below. Chest/axillae images: 1. Area of redness upper inner quadrant, tender to palpation 2. Previous incision Ramila areolar upper outer quadrant with underlying palpable mass, tender to palpation Resp Effort & Inspection: normal respiratory effort, no audible wheezes, no cough and no respiratory distress Cardio Jugular venous distension: no JVD GI Inspection: Yes normal to inspection Skin Other: Warm, dry, no rash Neuro General: patient oriented x3 Extrem General: Yes no clubbing, cyanosis or edema Assessment & Plan Assessment & Plan (1) Atypical lobular hyperplasia (ALH) of right breast: Code(s): N60.91 - Unspecified benign mammary dysplasia of right breast Category: Medical (2) Lump of right breast: Code(s): N63.10 - Unspecified lump in the right breast, unspecified quadrant Category: Medical Qualifiers: Breast mass location: upper outer quadrant Qualified Code(s): N63.11 - Unspecified lump in the right breast, upper outer quadrant Plan 39-year-old female patient diagnosed with a focal atypical lobular hyperplasia of the right breast status post lumpectomy. She is currently on tamoxifen for risk reduction. She was determined to be at high risk for breast cancer. She is now symptomatic from the same location in the right breast therefore I recommended a diagnostic mammogram and ultrasound. She will also need breast MRI due to her high risk status. I will start her on antibiotics and have a return 1-2 weeks repeat examination and review of mammogram/ultrasound. She expressed understanding and agrees with the plan. Orders: Orders MM diagnostic mammo BI Today N60.91 - Unspecified benign mammary dysplasia of right breast, N63.10 - Unspecified lump in the right breast, unspecified quadrant US breast RT complete Today N60.91 - Unspecified benign mammary dysplasia of right breast, N63.10 - Unspecified lump in the right breast, unspecified quadrant Medications: New doxycycline hyclate 100 mg PO BID 20 tabs 0RF N63.10 - Unspecified lump in the right breast, unspecified quadrant Coding Level of Care Code Est Pt Level 3 (88537) Diagnoses Atypical lobular hyperplasia (ALH) of right breast N60.91 Mass of upper outer quadrant of right breast N63.11 Breast mass location: upper outer quadrant
[2024-12-28 11:39] VITALS: BP 136/76; PULSE 113; BMI 29.1
--- OUTSIDE RECORDS SUMMARY | 2024-12-28 12:28 | XMS_ITS | Clinical Summary ---
Author Organization [employer] Address [address] [facility] 7[address] [place] [address] Care Team Providers Care Vitamin Manager Name Role Phone Naa Ramírez HEAD END DESIZING MACHINE OPERATOR Primary Care Provider [phone] Allergies No known active allergies Medications benzoyl [...] by mouth Once per day. 4 Active terconazole (Terazol 7) 0.4 % vaginal creamIndications :Vaginal hiral Insert 1 applicator into the vagina at bedtime for 7 days. 45 g 5 12/11/19 25 Active Problems Problem Noted Date Diagnosed Date Routine cervical smear 12/02/2024 Assessment & Plan (12/02/2024 6:21 AM EST): Co test in 5 yrs if normal Abnormal breast exam 12/02/2024 Assessment & Plan (12/02/2024 7:19 AM EST): Bilateral soft, symmetrical pendulous, with no deformities. Skin warm, dry, absence of erythema, edema, or peau d orange appearance Palpable right breast mass located below the areola measuring approximately 2 cm in diameter Nipple-areola complex brown, flat, negative for discharge or concern for paget's disease Patient to call her oncologist and report mass Continue with your Tamoxifen, report side effects to your oncologist, Do not stop or change your dosage without telling your oncologist Vaginal discharge 12/02/2024 Assessment & Plan (12/02/2024 7:09 AM EST): Cream color discharge Will send culture and treat as indicated Pelvic pain 12/02/2024 Assessment & Plan (12/04/2024 4:58 AM EST): LLQ tenderness Abnormal pelvic exam 12/02/2024 Assessment & Plan (12/04/2024 4:58 AM EST): Positive LLQ tenderness Positive for creamy discharge Sample sent to lab Ultra sound complete and transvaginal ordered Treatment as indicated from lab and US Vaginal hiral 12/02/2024 Assessment & Plan (12/04/2024 5:00 AM EST): Positive vaginal hiral Start terconazole 0.4% 1 hali nightly x 7 nights. Atypical lobular hyperplasia (ALH) of breast Healthcare maintenance 08/08/2024 Assessment & Plan (08/08/2024 12:09 PM EDT): Patient was seen for transfer and establishment of care today, main focus on preop. Flu and Tda vaccines given. Pap smear scheduled. Labs ordered Encounter for immunization 08/08/2024 Assessment & Plan (08/08/2024 12:03 PM EDT): Tdap and flu vaccine given. Subareolar mass of right breast 08/08/2024 Assessment & Plan (12/02/2024 7:18 AM EST): Approximately 2 cm in diameter right breast mass below the areola at the 9-12 o'clock location. Patient to make appointment with her oncologist Assessment & Plan (08/08/2024 12:05 PM EDT): Please see preop notes Concussion with loss of consciousness 08/08/2024 Assessment & Plan (08/08/2024 12:03 PM EDT): Improving symptoms. Neuro check negative. Patient advised brain rest and to return to the office if symptoms worsens Preop examination 08/08/2024 Encounters Date Type Department Care Team Description 12/10/[address] [address] Mague Pearce, WINNIE 12/04/[address] [address] Delfina Juarez RN 11/28/2024 10:00 AM EST Procedure Visit [address] [address] Naa Ramírez FNP Routine cervical smear (Primary Dx); Pelvic pain; Vaginal discharge; Subareolar mass of right breast; Abnormal breast exam; Abnormal pelvic exam; Vaginal hiral 11/28/2024 Orders Only [address] [address] Naa Ramírez FNP 11/20/[address] [address] Mara Elder [place] Chart Prep from Last 3 Months Immunizations Name Administration [...] 11/28/2024 10:09 AM EST Plan of Treatment Health Maintenance Due Date Last Done Comments Dental Oral Exam 1985 Dental Prophylaxis 1985 Dental X-Ray: Bitewings 1985 Dental X-Ray: Full Mouth 1985 Hepatitis A Vaccines (1 of 2 - Risk 2-dose series) 2004 Hepatitis B Vaccines (1 of 3 - 19+ 3-dose series) 2004 SDOH Screening 07/27/2025 07/27/2024 Alcohol/Substance Use Screening 08/08/2025 08/08/2024 Depression Screening 08/08/2025 08/08/2024, 08/08/2024 Family Planning (PISQ) 08/08/2025 08/08/2024 Tobacco Screening 11/28/2025 11/28/2024 COVID-19 Vaccine (4 - 2023-2 5 season) 2025 10/15/2021, 03/09/2021, 02/09/2021 Postponed from 07/08/2024 (Patient Refused) Pap Smear 11/28/2027 11/28/2024 Cervical Cancer Screening 11/28/2029 HPV/Cotest 11/28/2029 11/28/2024 DTaP/Tdap/Td Vaccines (2 - T d [...] 5 Years) and At-Risk Patients (6 to 49) Years) Aged Out No longer eligible b ased on patient's age to complete this topic RSV under 20 months Aged Out No longe r eligible based on patient's age to complete this topic Rotavirus Vaccines Aged Out No longer eligible based on patient's age to complete this topic Procedures Procedure Name Priority Date/Time Associated Diagnosis Comments US PELVIS TRANSVAGINAL Routine 12/06/2024 3:52 PM EST Pelvic pain CHLAMYDIA/N. GONORRHOEAE AND T. VAGINALIS RNA, QUAL,TMA Routine 11/28/2024 11:15 AM EST Vaginal discharge PAP SMEAR Routine 11/28/2024 11:15 AM EST Routine cervical smear HPV DNA, LOW/HIGH RISK Routine 11/28/2024 11:15 AM EST BACTERIAL VAGINOSIS PANEL Routine 11/28/2024 11:15 AM [...] Recently Relevant to Health Maintenance Results * US Pelvis Transvaginal (12/06/2024 3:52 PM EST) Anatomical Region Laterality Modality Pelvis Ultrasound 12/06/2024 3:52 PM EST Narrative 12/07/2024 7:58 AM EST ? [facility] ?[address] ?[place] [address] ? Ultrasound Report ? Signed ? Patient: Everett,Areliz ?MR#: [id number] ?? 0923 ? : 1985 ?Acct:[id number] ? Age/Sex: 39 / F ?ADM Date: 01/30/25 ? Loc: HO.US ? Attending Dr: Naa FLANAGAN ? Ordering Physician: Naa Ramírez ?? Date of Service: 12/06/24 ?? Procedure(s): US pelvic and transvaginal ?? Accession Number(s): [id number] ? cc: Naa Ramírez ? EXAMINATION: ? US PELVIS ? CLINICAL INFORMATION: ? Left lower quadrant pain ? COMPARISON: ?? None available. ? TECHNIQUE: ?? Ultrasound of the pelvis is performed using both transabdominal and ?? transvaginal transducers along with Doppler. Transvaginal imaging is ?? performed due to inadequate visualization transabdominally. ? FINDINGS: ?? Uterus: ?? The uterus is anteverted and measures 10.6 x 4.3 x 4.3 cm. ? The double wall endometrial thickness is 7.0 mm. ? The uterus is smooth in contour and has normal myometrial echogenicity. ?No visible fibroid. ? There are small nabothian cysts in the cervix. ? Adnexa: ?? Both ovaries are visualized. There is normal color flow to the adnexa. ?? There is no ovarian torsion. ??There is no pelvic ascites or fluid ?? collection noted. ? Right ovary measures 3.9 x 2.4 x 1.7 cm. Volume 8.3 mL. There is ? irregular shape corpus luteal cyst measuring 1.4 x 1.5 x 1.0 cm. ? Left ovary measures 2.3 x 1.8 x 1.7 cm. Volume 3.7 mL . ? US/US pelvic and transvaginal ?? IMPRESSION: ?? Nabothian cysts in cervix. ? Uterus unremarkable. ? Small corpus luteal cyst right ovary. ? Electronically signed by: ??James Juárez MD ??12/07/2024 07:55 AM EST RP ? Dictated By: ?Marquita,James S MD ? Signed By: ?<Electronically signed by James S Marquita MD in OV> ?12/07/24 0755 ? DD/ 1552 ? TD/TT: 12/06/24 1603 ? Carton Counter Feeder: MSM ? Procedure Note Mercedes Hendrix - 12/07/[address] [address] Ultrasound Report Signed Patient: Rasta Floyd#: [id number] 0923 : 1985Acct:[id number] Age/Sex: 39 / FADM Date: 12/06/24 Loc: HO.US Attending Dr: Naa FLANAGAN Ordering Physician: Naa Ramírez Date of Service: 12/06/24 Procedure(s): US pelvic and transvaginal Accession Number(s): [id number] cc: Naa Ramírez EXAMINATION: US PELVIS CLINICAL INFORMATION: Left lower quadrant pain COMPARISON: None available. TECHNIQUE: Ultrasound of the pelvis is performed using both transabdominal and transvaginal transducers along with Doppler. Transvaginal imaging is performed due to inadequate visualization transabdominally. FINDINGS: Uterus: The uterus is anteverted and measures 10.6 x 4.3 x 4.3 cm. The double wall endometrial thickness is 7.0 mm. The uterus is smooth in contour and has normal myometrial echogenicity. No visible fibroid. There are small nabothian cysts in the cervix. Adnexa: Both ovaries are visualized. There is normal color flow to the adnexa. There is no ovarian torsion. There is no pelvic ascites or fluid collection noted. Right ovary measures 3.9 x 2.4 x 1.7 cm. Volume 8.3 mL. There is irregular shape corpus luteal cyst measuring 1.4 x 1.5 x 1.0 cm. Left ovary measures 2.3 x 1.8 x 1.7 cm. Volume 3.7 mL . US/US pelvic and transvaginal IMPRESSION: Nabothian cysts in cervix. Uterus unremarkable. Small corpus luteal cyst right ovary. Electronically signed by: James Juárez MD 12/07/2024 07:55 AM EST Dictated By: James Juárez MD Signed By: <Electronically signed by James Juárez MD in OV> 12/07/24 0757 DD/ 1552 TD/TT: 12/06/24 1603 Carton Counter Feeder: MATEUS Naa FLANAGAN IMG US PROCEDURES Final Result * STI testing add on (NG, CT, Trich) (11/28/2024 11:15 AM EST) Trichomonas (NAAT) NOT DETECTED [facility] Comment:TRICHOMONAS VAGINALI S RNA, QL TMA: NOT DETECTEDFor additional information, please refer tohttp://[employer]/faq/Trichomonastma(This link is being provided for informational/educational purposes only.)Test performed by: [facility], [email or web address] [address] [place] [address], 3rd floor, [place] [address] Director: Florencia Zeng MD CLIA: [id number] CTNG Ref Lab NOT DETECTED NOT DETECTED [facility] NG Ref Lab NOT DETECTED NOT DETECTED [facility] Comment:The analytical perfo rmance characteristics of thisassay, when used to test SurePath(TM) specimens have beendetermined by [facility]. The modifications havenot been cleared or approved by the FDA. This assay hasbeen validated pursuant to the CLIA regulations and isused for clinical purposes.For additional information, please refer tohttps://[employer]/faq/YOO895(This link is being provided for information/educational purposes only.) Swab Cervix uteri structure / Unknown 11/28/2024 11:15 AM EST 11/28/2024 1:31 PM EST Narrative [facility] - 12/07/2024 12:09 PM EST Collection Date: [id number] by: MARTIN Smithurccarlton: Cervix Naa Ramírez [facility] CYTOLOGY ORDERABLES Edited Result - Final [facility] [address] [place] [phone] * (ABNORMAL) Bacterial Vaginosis Panel (11/28/2024 11:15 AM EST) TRICHOMONAS VAGINALIS DETECTION BY PCR NOT DETECTED Not Detect [facility] BACTERIAL VAGINOSIS DETECTION BY PCR NEGATIVE Negative [facility] Comment:The BV organism targ ets [...] evaluatedin patients under the age of 14. HIRAL GROUP DETECTION BY PCR DETECTED(A) Not Detect [facility] Hiral glab krusei PCR NOT DETECTED Not Detect [facility] Swab Vaginal structure / Unknown 11/28/2024 11:15 AM EST 11/28/2024 1:31 PM EST [facility] MICROBIOLOGY - GENERAL ORD ERABLES Final Result [facility] [address] [place] [phone] * HPV DNA, Low/High Risk (11/28/2024 11:15 AM EST) HPV High Risk Negative Negative [facility] HPV Genotype 16 Negative Negative [facility] HPV Genotype 18 Negative Negative [facility] Comment:HPV testing performe d at [facility] (CLIA#[id number]), [address] [place] [address].Testing for HPV was performed using the [employer] DESIRE 6800system. The presence of HPV in the female genital tract isassociated with a number of diseases, including cervicalcarcinoma. The HPV DNA high risk pool tests for HPV 31, 33,35, 39, 45, 51, 52, 56, 58, 59, 66 and 68. The testing forHPV 16 and 18 genotypes has also been performed. A positiveresult indicates detection of nucleic acid sequences fromone or more subtypes, whereas a negative result indicatessuch sequences were not detected. 11/28/2024 11:1 5 AM EST 11/28/2024 2:00 PM EST [facility] BLOOD ORDERABLES Final Res ult [facility] [address] [place] [address] [phone] * Pap Smear (11/28/2024 11:15 AM EST) Swab Cervix uteri structure / Unknown 11/28/2024 11:15 AM EST 11/28/2024 2:00 PM EST Narrative [facility] - 12/04/2024 10:17 AM EST ----- ------- Name: Lazaro Floyd ? Age/Sex: 39/F ? : 1985 Unit#: [id number] ?? Attend Dr: Naa Ramírez ?Re11/28/24 ?Status: DEP REF ? Location: HO.HHCLNP ? Disch: ? ----- ------- SPEC : [id number] ? RECD: 11/28/24-1400 ? STATUS: ??SOUT ? REQ NUM: [id number] ? JYOTI: 11/28/24-1115 ? SUBM DR: Naa Ramírez HEAD END DESIZING MACHINE OPERATOR ? ENTERED: ??11/28/24-1409 ?SP TYPE: Pap Smr ?OTHR DR: ? ORDERED: ??Pap Smear ? Interpretation ?? Satisfactory for evaluation. ?? Negative for intraepithelial lesion or malignancy. ?? Fungal organisms consistent with Hiral species. ? HPV High Risk: ??Negative ? HPV Genotyping 16: ??Negative ?? HPV Genotyping 18: ??Negative ?Clinical Information LMP: 11/12/2024 Previous PAP test: Unknown date, remote hx of abnormal ? Material Received ?? ThinPrep-Cervical ----- ------- Signed (signature on file) AGATHA Carranza (ASCP) 12/04/24 1017 ? ----- ------- ? END OF REPORT ? us Naa Ramírez HEAD END DESIZING MACHINE OPERATOR LAB CYTOLOGY ORDERABLES Final Result Performing Organization Address City/[facility]/ZIP Co de Phone Number [facility] [address] [place] [address] [phone] * Hepatitis C Antibody with Reflex to HCV, RNA, Quantitative, Real-Time PCR (05/16/2024 1:28 PM EDT) Pathologist [facility] Hepatitis C Antibody Nonreactive Nonreactive [facility] Comment:Antibodies to HCV no t detected; does not exclude early acuteHCV infection. Blood Venous blood specimen / Unknown 05/16/2024 1:28 PM EDT 05/16/2024 3:51 PM EDT Evelyne Keita [facility] BLOOD ORDERABLES Renuka l Result Performing Organization Address [facility]/ZIP Co de Phone Number [facility] [address] [place] [address] [phone] * HIV-1/2 Antigen and Antibodies, Fourth Generation, with Reflexes (05/16/2024 1:28 PM EDT) HIV AB/AG Nonreactive Nonreactive [facility] Comment:HIV-1 p24 Ag and/or HIV-1/HIV-2 Ab not detected.A test result that is nonreactive does not exclude thepossibility of exposure to or infection with HIV-1 and/orHIV-2. Nonreactive results in this assay for individualswith prior exposure to HIV-1 and/or HIV-2 may be due toantigen and antibody levels that are below the limit ofdetection of this assay.The [employer] HIV Ag/Ab Combo assay result andsupplemental assay results should be interpreted inconjunction with the patient's clinical presentation,history and other laboratory results. If the results areinconsistent with clinical evidence, additional testing issuggested to confirm the result. Blood Venous blood specimen / Unknown 05/16/2024 1:28 PM EDT 05/16/2024 3:51 PM EDT Evelyne Keita [facility] BLOOD ORDERABLES Renuka eligio Result [facility] [address] [place] [phone] [phone] from Last 3 Months or Most Recently Relevant to Health Maintenance Insurance [employer] [facility] AD[place] Care Teams Vitamin Manager Relationship Specialty Start Date End Date Naa Ramírez FNP [address] [place] [address] PCP - General Family Medicine 08/08/24
--- OUTSIDE RECORDS SUMMARY | 2024-12-28 12:28 | XMS_ITS | Encounter Summary ---
Author Organization [employer] Address [address] 7[address] [place] [address] Care Team Providers Care Manufacturing Supervisor Name Role Phone Naa Ramírez ROAD OILING TRUCK DRIVER Primary Care Provider [phone] Encounter Details Date Type Department Care Team ([facility] st Contact Info) Description 12/04/2024 Telephone [facility] [address] [place] [address] Delfina Juarez, RN Social History Tobacco Use Types Packs/Day Years [...] your housing situation today? I have kyle massiel 07/27/[address] you li [...] encounter Miscellaneous Notes * Telephone Encounter - Delfina Juarez RN - 12/04/2024 9:37 AM EST Tc to pt via bls id: [id number] to let them know per PCP Can you please advise Nadeem that her vaginal discharge swab test came back positive for Candidiasis and I have sent vaginal treatment foryeast terconazole 0.4% 1 hali nightly x 7 nights to her pharmacy. Also remind her it is important for her to follow up with her oncologist and breast surgeon about the new mass on her breast. Can you please also do a telephone call about 10 -14 days to see if her vaginal discharge and pelvic has improved if not please schedule her for a visit with me or any available provider. Thank you No answer, lvm to return call and ask to speak to [place] team nurses. * Telephone Encounter - Delfina Juarez RN - 12/04/2024 9:37 AM EST ----- Message from Naa Ramírez sent at 12/04/2024 5:19 AM EST ----- Can you please advise Nadeem that her vaginal discharge swab test came back positive for Candidiasis and I have sent vaginal treatment for yeast terconazole 0.4% 1 hali nightly x 7 nights to her pharmacy Also remind her it is important for her to follow up with her oncologist and breast surgeon about the new mass on her breast Can you please also do a telephone call about 10 -14 days to see if her vaginal discharge and pelvic has improved if not please schedule her for a visit with me or any available provider Thank you documented in this encounter Plan of Treatment Not on file documented as of this encounter Visit Diagnoses Not on filedocumented in this encounter Additional Health Concerns Assessment Noted Time PHQ-9 Depression Total Score: 0 08/08/20 8:59 AM EDT documented as of this encounter Care Teams Manufacturing Supervisor Relationship Specialty Start Date End Date Naa Ramírez FNP [address] [place] [phone] PCP - General Family Medicine 08/08/24 documented as of this encounter
--- OUTSIDE RECORDS SUMMARY | 2024-12-28 12:28 | XMS_ITS | Encounter Summary ---
Author Organization [employer] Address [address] [place] [address] Care Team Providers Care Mechanical Test Technician Name Role Phone Naa Ramírez YIELD ANALYST Primary Care Provider [phone] Encounter Details Date Type Department Care Team ([facility] st Contact Info) Description 12/10/2024 Telephone [facility] [address] [place] [address] Mague Pearce, RN [address] [place] [address] Social History Tobacco Use Types Packs/Day Years [...] encounter Miscellaneous Notes * Telephone Encounter - Mague Pearce RN - 12/10/2024 12:21 PM EST Images from the original note were not included. T/C placed to pt via S [employer]ch #[id number] to advise of message from PCP: MASHA Goodman [facility] Blue Team Nurses Please let Lazaro know her pap smear was normal. Next due in 5 years No answer, v/m left to return call to Blue team nurses. * Telephone Encounter - Mague Pearce RN - 12/10/2024 12:11 PM EST ----- Message from Naa Ramírez sent at 12/08/2024 10:46 PM EST ----- Please let Lazaro know her pap smear was normal. Next due in 5 years Thank you documented in this encounter Plan of Treatment Not on file documented as of this encounter Visit Diagnoses Not on filedocumented in this encounter Additional Health Concerns Assessment Noted Time PHQ-9 Depression Total Score: 0 08/08/20 24 8:59 AM EDT documented as of this encounter Care Teams Mechanical Test Technician Relationship Specialty Start Date End Date Naa Ramírez FNP [address] [place] [address] PCP - General Family Medicine 08/08/24 documented as of this encounter
--- OUTSIDE RECORDS SUMMARY | 2024-12-28 12:28 | XMS_ITS | Encounter Summary ---
Author Organization [employer] Address [address] [place] [address] Care Team Providers Care Line Ordering Clinician Name Role Phone Naa Ramírez WORK FROM HOME Primary Care Provider [phone] Encounter Details Date Type Department Care Team ([facility] st Contact Info) Description 11/28/2024 Orders Only [facility] [address] [place] [address] Naa Ramírez FNP [address] [place] [address] Social History Tobacco Use Types Packs/Day Years [...] as of this encounter Plan of Treatment Not on file documented as of this encounter Procedures Procedure Name Priority Date/Time Associated Diagnosis Comments HPV DNA, LOW/HIGH RISK Routine 11/28/2024 11:15 AM EST documented in this encounter Results * HPV DNA, Low/High Risk (11/28/2024 11:15 AM EST) HPV High Risk Negative Negative [facility] HPV Genotype 16 Negative Negative [facility] HPV Genotype 18 Negative Negative [facility] Comment:HPV testing performe d at [facility] (CLIA#[id number]), [address] [place] [address].Testing for HPV was performed using the Rasheed [...] 5 AM EST 11/28/2024 2:00 PM EST Naa FLANAGAN LAB BLOOD ORDERABLES Final Res ult [facility] [address] [place] [address] [phone] documented in this encounter Visit Diagnoses Not on filedocumented in this encounter Additional Health Concerns Assessment Noted Time PHQ-9 Depression Total Score: 0 08/08/20 8:59 AM EDT documented as of this encounter Care Teams Line Ordering Clinician Relationship Specialty Start Date End Date Naa Ramírez FNP [address] [place] [phone] PCP - General Family Medicine 08/08/24 documented as of this encounter
--- OUTSIDE RECORDS SUMMARY | 2024-12-28 12:28 | XMS_ITS | Encounter Summary ---
Author Organization [employer] Address [address] [place] [address] Care Team Providers Care Renal Dialysis Technician Name Role Phone Naa Ramírez Primary Care Provider Encounter Details Date Type Department Care Team ([facility] st Contact Info) Description 02/14/2023 Abstract [facility] ADULT DENT[facility] [address] [place] [address] Kamran Martinez, DAVONTE [address] [place] [address] Social History Tobacco Use Types Packs/Day Years [...] on filedocumented in this encounter Care Teams Renal Dialysis Technician Relationship Specialty Start Date End Date Naa Ramírez FNP [address] [place] [address] PCP - General Family Medicine 08/08/24 documented as of this encounter
--- OUTSIDE RECORDS SUMMARY | 2024-12-28 12:28 | XMS_ITS | Encounter Summary ---
Author Organization [employer] [facility] Address [address] [place] [address] 7 [place] [address] Care Team Providers Care Soils Engineer Name Role Phone Naa Ramírez Primary Care Provider [phone] Reason for Referral * Imaging (Routine) - Closed Specialty Diagnoses / Procedures Referred By Justin alcantar Referred To Contact Radiology Diagnoses Pelvic pain Procedures US Pelvis Transvaginal Naa Ramírez FNP [address] [place] [address] Phone: tel: fax: [address] Phone: tel: fax: Referral ID Status Reason Start Date Expiration Date Visits Re quested Visits Authorized [id number] Closed 11/28/2024 11/28/2025 1 1 * Imaging (Urgent) - Closed Specialty Diagnoses / Procedures Referred By Contac t Referred To Contact Radiology Diagnoses Pelvic pain Procedures Us Pelvis complete Naa Ramírez FNP [address] [place] [address] Phone: tel: fax: [address] Phone: tel: fax: Referral ID Status Reason Start Date Expiration Date Visits Re quested Visits Authorized [id number] Closed 11/28/2024 11/28/2025 1 1 Encounter Details Date Type Department Care Team (Latest Contact Info) Description 11/28/2024 10:00 AM EST Procedure Visit [facility] [address] [place] [address] Naa Ramírez FNP [address] [place], [place] [phone] Routine cervical smear (Primary Dx); Pelvic pain; Vaginal discharge; Subareolar mass of right breast; Abnormal breast exam; Abnormal pelvic exam; Vaginal hiarl Social History Tobacco Use Types Packs/Day Years [...] 10:09 AM EST documented in this encounter Progress Notes * Naa Ramírez, MASHA - 11/28/2024 10:00 AM EST Subjective Patient ID: Lazaro Floyd is a 39 y.o. adult who presents for Pap smear Patient reports last pap smear is 8 years ago and was normal. Denies hx of ST. Dx of HPV at 18 yrs subsequent test negative. Reports pelvic pain with yellowish greenish gummy discharge x 2 weeks. Denies vaginal itching or odor. Denies fever , nausea and vomiting. Denies urinary symptoms -burning, leaking, or urgency. LMP last month can not remember date. Describe menstruation as normal and regular, denies abnormal bleeding and in between period. 2 children, no plan to have more children.Tubal ligation. Sexually active, no protection reports being in a mutually exclusive relationship. Lives with parents and children. Reports home is safe, working fire and smoke alarm, denies IPV and fire arms in the home. History of palpable masses on both breast with bilateral lumpectomy. 2 symptomatic breast lesions were removed and sent to pathologist. Denies family history of breast/ovarian/colon/uterine cancer. After surgery Lazaro was started on 20 mg daily of tamoxifen. At this visit patient reported stopping her Taximofen because she believes her pelvic pain with a sticky yellowish green discharge. Review of Systems Constitutional: Negative for fever and unexpected weight change. HENT: Negative for sore throat. Respiratory: Negative for cough, chest tightness, shortness of breath and wheezing. Cardiovascular: Negative for chest pain, palpitations and leg swelling. Gastrointestinal: Negative for abdominal pain, nausea and vomiting. Genitourinary: Positive for pelvic pain. Negative for dyspareunia, dysuria, frequency, genital sores, menstrual problem, urgency, vaginal bleeding, vaginal discharge and vaginal pain. Neurological: Negative for dizziness. Psychiatric/Behavioral: Negative for sleep disturbance and suicidal ideas. Objective Visit Vitals BP 127/81 (BP Location: Left arm, Patient Position: Sitting, BP Cuff Size: Adult) Pulse 90 Temp 98.4 ??F (36.9 ??C) (Oral) Resp 18 Ht 5' 1 (1.549 m) Wt 158 lb (71.7 kg) LMP 11/12/2024 SpO2 99% BMI 29.85 kg/m?? OB Status Having periods Smoking Status Never BSA 1.76 m?? Component Ref Range & Units TRICHOMONAS VAGINALIS DETECTION BY PCR Not Detect NOT DETECTED BACTERIAL VAGINOSIS DETECTION BY PCR Negative NEGATIVE HIRAL GROUP DETECTION BY PCR Not Detect DETECTED Abnormal Hiral glab krusei PCR Not Detect NOT DETECTED Physical Exam Constitutional: Appearance: Normal appearance. Genitourinary: General: Normal vulva. Labia: Right: No rash, tenderness, lesion or injury. Left: No rash, tenderness, lesion or injury. Vagina: Normal. No signs of injury and foreign body. Cream color vaginal discharge. No erythema, tenderness, bleeding or lesions. Cervix: Negative cervical motion tenderness, positive LLQ tenderness and discharge. No friability, lesion, erythema, cervical bleeding or eversion. Uterus: Normal. Not enlarged and not tender. Adnexa: Right adnexa normal and left adnexa normal. Right: No mass, tenderness or fullness. Left: No mass.positive for tenderness or fullness. Neurological: Mental Status: She is alert. Psychiatric: Mood and Affect: Mood normal. Behavior: Behavior normal. Assessment/Plan Problem List Items Addressed This Visit Subareolar mass of right breast Current Assessment & Plan Approximately 2 cm in diameter right breast mass below the areola at the 9-12 o'clock location. Patient to make appointment with her oncologist Routine cervical smear - Primary Current Assessment & Plan Co test in 5 yrs if normal Relevant Orders Pap Smear Abnormal breast exam Current Assessment & Plan Bilateral soft, symmetrical pendulous, with no deformities. [...] dosage without telling your oncologist Vaginal discharge Current Assessment & Plan Cream color discharge Will send culture and treat as indicated Relevant Orders Bacterial Vaginosis Panel (Completed) STI testing add on (NG, CT, Trich) (Completed) Pelvic pain Current Assessment & Plan LLQ tenderness Relevant Orders Us Pelvis complete US Pelvis Transvaginal Abnormal pelvic exam Current Assessment & Plan Positive LLQ tenderness Positive for creamy discharge Sample sent to lab Ultra sound complete and transvaginal ordered Treatment as indicated from lab and US Vaginal hiral Current Assessment & Plan Positive vaginal hiral Start terconazole 0.4% 1 hali nightly x 7 nights. [facility] SERVICE CREW LEADER Attestation SERVICE CREW LEADER Resident Attestation: Patient was seen and evaluated by Naa FLANAGAN , in collaboration with Evelyne Keita CNM who has reviewed my assessment and plan. I, Evelyne Keita CNM, have reviewed the resident's note and agree with the assessment & plan of care as documented above. documented in this encounter Miscellaneous Notes * Assessment & Plan Note - MASHA Goodman - 12/04/2024 4:58 AM ESTAssociated Problem(s): Pelvic pain LLQ tenderness * Assessment & Plan Note - MASHA Goodman - 12/02/2024 8:44 AM ESTAssociated Problem(s): Vaginal hiral Positive vaginal hiral Start terconazole 0.4% 1 hali nightly x 7 nights. * Assessment & Plan Note - MASHA Goodman - 12/02/2024 7:48 AM ESTAssociated Problem(s): Abnormal pelvic exam Positive LLQ tenderness Positive for creamy discharge Sample sent to lab Ultra sound complete and transvaginal ordered Treatment as indicated from lab and US * Assessment & Plan Note - MASHA Goodman - 12/02/2024 7:09 AM ESTAssociated Problem(s): Vaginal discharge Cream color discharge Will send culture and treat as indicated * Assessment & Plan Note - MASHA Goodman - 12/02/2024 6:50 AM ESTAssociated Problem(s): Abnormal breast exam Bilateral soft, symmetrical pendulous, with no deformities. [...] change your dosage without telling your oncologist * Assessment & Plan Note - MASHA Goodman - 12/02/2024 6:21 AM ESTAssociated Problem(s): Routine cervical smear Co test in 5 yrs if normal * Assessment & Plan Note - MASHA Goodman - 12/01/2024 10:32 PM EST Associated Problem(s): Subareolar mass of right breast Approximately 2 cm in diameter right breast mass below the areola at the 9-12 o'clock location. Patient to make appointment with her oncologist * Result Encounter Note - MASHA Goodman - 11/28/2024 10:00 AM EST Please let Lazaro know her pap smear was normal. Next due in 5 years Thank you documented in this encounter Plan of Treatment Scheduled Orders Name Type Priority Associated Diagnoses Orde r Schedule Us Pelvis complete Imaging Urgent Pelvic pain Expected: 11/28/2024, Expires: 11/28/2025 documented as of this encounter Procedures Procedure Name Priority Date/Time Associated Diagnosis Comments US PELVIS TRANSVAGINAL Routine 12/06/2024 3:52 PM EST Pelvic pain CHLAMYDIA/N. GONORRHOEAE AND T. VAGINALIS RNA, QUAL,TMA Routine 11/28/2024 11:15 AM EST Vaginal discharge BACTERIAL VAGINOSIS PANEL Routine 11/28/2024 11:15 AM EST Vaginal discharge PAP SMEAR Routine 11/28/2024 11:15 AM EST Routine cervical smear documented in this encounter Results * US Pelvis Transvaginal (12/06/2024 3:52 PM EST) Anatomical Region Laterality Modality Pelvis Ultrasound 12/06/2024 3:52 PM EST Narrative 12/07/2024 7:58 AM EST ? [facility] ?[address] ?[place] [address] ? Ultrasound Report ? Signed ? Patient: Everett,Arelinola ?MR#: [id number] ?? 0923 ? : 1985 ?Acct:[id number] ? Age/Sex: 39 / F ?ADM Date: 12/06/24 ? Loc: HO.US ? Attending Dr: Naa FLANAAGN ? Ordering Physician: Naa Ramírez ?? Date of Service: 12/06/24 ?? Procedure(s): US pelvic and transvaginal ?? Accession Number(s): [id number] ? cc: Naa Ramírez ? EXAMINATION: ? [...] ? Signed By: ?<Electronically signed by James Juárez MD in OV> ?12/07/24 0755 ? DD/ 1552 ? TD/TT: 12/06/24 1603 ? International Project Engineer: MSM ? Procedure Note Donrad[place], Image - 12/07/2024 [place] [address] Ultrasound Report Signed Patient: Rasta Floyd#: [id number] 0923 : 1985Acct:[id number] Age/Sex: 39 / FADM Date: 12/06/24 Loc: HO.US Attending Dr: Naa FLANAGAN Ordering Physician: Naa Ramírez Date of Service: 12/06/24 Procedure(s): US pelvic and transvaginal Accession Number(s): [id number] cc: Naa Ramírez EXAMINATION: US PELVIS CLINICAL [...] James Juárez MD 12/07/2024 07:55 AM EST RP Dictated By: James Juárez MD Signed By: <Electronically signed by James Juárez MD in OV> 12/07/24 0755 DD/ 1552 TD/TT: 12/06/24 1603 International Project Engineer: MATEUS us Naa Okhipo [facility] IMG US PROCEDURES Final Result * STI testing add on (NG, CT, Trich) (11/28/2024 11:15 AM EST) Trichomonas (NAAT) NOT DETECTED [facility] Comment:TRICHOMONAS VAGINALI S RNA, QL TMA: NOT DETECTEDFor additional information, please refer tohttp://Chain.yoone/faq/Trichomonastma(This link is being provided for informational/educational purposes only.)Test performed by: [employer] [employer] [address] [place] [address] floor, [place] [address] Director: Florencia Zeng MD CLIA: [id number] CTNG Ref Lab NOT DETECTED NOT DETECTED [facility] NG Ref Lab NOT DETECTED NOT DETECTED [facility] Comment:The analytical perfo rmance characteristics of thisassay, when used to test SurePath(TM) specimens have beendetermined by [employer]. The modifications havenot been cleared or approved by the FDA. This assay hasbeen validated pursuant to the CLIA regulations and isused for clinical purposes.For additional information, please refer tohttps://Chain.yoone/faq/RHY105(This link is being provided for information/educational purposes only.) Swab Cervix uteri structure / Unknown 11/28/2024 11:15 AM EST 11/28/2024 1:31 PM EST Narrative [facility] - 12/07/2024 12:09 PM EST Collection Date: [id number] by: MARTIN Navarro: [facility] CYTOLOGY ORDERABLES Edited Result - Final Performing Organization Address [facility]/ZIP Co de Phone Number [facility] [address] [place] [phone] * (ABNORMAL) Bacterial Vaginosis Panel (11/28/2024 11:15 AM EST) TRICHOMONAS VAGINALIS DETECTION BY PCR NOT DETECTED Not Detect [facility] BACTERIAL VAGINOSIS DETECTION BY PCR NEGATIVE Negative [facility] Comment:The BV organism targ ets [...] GROUP DETECTION BY PCR DETECTED(A) Not Detect [facility] Hiral glab krusei PCR NOT DETECTED Not Detect [facility] Swab Vaginal structure / Unknown 11/28/2024 11:15 AM EST 11/28/2024 1:31 PM EST Naa [employer] [facility] LAB MICROBIOLOGY - GENERAL ORD ERABLES Final Result Performing Organization Address [facility] Co de Phone Number [facility] [address] [place] [phone] * Pap Smear (11/28/2024 11:15 AM EST) Swab Cervix uteri structure / Unknown 11/28/2024 11:15 AM EST 11/28/2024 2:00 PM EST Narrative [facility] - 12/04/2024 10:17 AM EST ----- ------- Name: Lazaro Floyd ? Age/Sex: 39/F ? : 1985 Unit#: [id number] ?? Attend Dr: Naa Ramírez ?Re11/28/24 ?Status: DEP REF ? Location: HO.DERRICKCLNP ? Disch: ? ----- ------- SPEC : [id number] ? RECD: 11/28/24-1400 ? STATUS: ??SOUT ? REQ NUM: [id number] ? JYOTI: 11/28/24-1115 ? SUBM DR: Naa Ramírez ? ENTERED: ??11/28/24-1409 ?SP TYPE: Pap Smr ?OTHR : ? ORDERED: ??Pap Smear ? Interpretation ?? [...] ----- ------- ? END OF REPORT ? Naa FLANAGAN LAB CYTOLOGY ORDERABLES Final Result [facility] [address] [place] [address] [phone] documented in this encounter Visit Diagnoses Diagnosis Routine cervical smear- Primary Screening for malignant neoplasm of the cervix Pelvic pain Vaginal discharge Leukorrhea, not specified as infective Subareolar mass of right breast Abnormal breast exam Other sign and symptom in breast Abnormal pelvic exam Vaginal hiral Candidiasis of vulva and vagina documented in this encounter Additional Health Concerns Assessment Noted Time PHQ-9 Depression Total Score: 0 08/08/20 24 8:59 AM EDT documented as of this encounter Care Teams Soils Engineer Relationship Specialty Start Date End Date Naa Ramírez FNP [address] [place] [phone] PCP - General Family Medicine 08/08/24 documented as of this encounter
--- OUTSIDE RECORDS SUMMARY | 2024-12-28 12:28 | XMS_ITS | Encounter Summary ---
Author Organization [employer] Address [address] [place] [address] Care Team Providers Care Engine Tester Name Role Phone Naa Ramírez AUDITOR INTERNAL Primary Care Provider [phone] Encounter Details Date Type Department Care Team ([facility] st Contact Info) Description 05/17/2024 Orders Only [facility] [address] [place] [address] Evelyne Keita CNM [address] [place] [address] No history of hepatitis B vaccination (Primary [...] EDT) ~Hepatitis B Surface Antibody REACTIVE Nonreactive [facility] Comment:REACTIVE: > 11.99 mI U/mL Blood Venous blood specimen / Unknown 08/08/2024 11:03 AM EDT 08/08/2024 1:43 PM EDT us Evelyne Keita CNM LAB BLOOD ORDERABLES Renuka l Result [facility] [address] [place] [address] [phone] documented in this encounter Visit Diagnoses Diagnosis No history of hepatitis B vaccination- Primary documented in this encounter Care Teams Engine Tester Relationship Specialty Start Date End Date Naa Ramírez FNP [address] [place] [phone] PCP - General Family Medicine 08/08/24 documented as of this encounter
--- OUTSIDE RECORDS SUMMARY | 2024-12-28 12:28 | XMS_ITS | Encounter Summary ---
Author Organization [employer] [facility] Address [address] [place] [address] Care Team Providers Care Attendant Arcade Name Role Phone Naa Ramírez Primary Care Provider [phone] Encounter Details Date Type Department Care Team (Latest Contact Info) Description 01/15/2021 Abstract [facility] CONVERSIONS Dental, Provider, DDS Social History Tobacco [...] on filedocumented in this encounter Care Teams Attendant Arcade Relationship Specialty Start Date End Date Naa Ramírez FNP [address] [place] [phone] PCP - General Family Medicine 08/08/24 documented as of this encounter
--- OUTSIDE RECORDS SUMMARY | 2024-12-28 12:28 | XMS_ITS | Encounter Summary ---
Author Organization [employer] Address [address] [place] [address] Care Team Providers Care Vp Ad Sales West Name Role Phone Naa Ramírez Primary Care Provider Encounter Details Date Type Department Care Team ([facility] st Contact Info) Description 12/20/2022 Abstract [facility] [address] [place] [address] Kamran Martinez, DAVONTE [address] [place] [address] Social History Tobacco Use Types Packs/Day Years [...] on filedocumented in this encounter Care Teams Vp Ad Sales West Relationship Specialty Start Date End Date Naa Ramírez FNP [address] [place] [address] PCP - General Family Medicine 08/08/24 documented as of this encounter
== END 2024-12-28 11:48 | disposition home or self-care (01) ==
PROVIDERS: PCP Nurse Practitioner Family; Visit Provider Surgery
DX: N60.91 Unspecified benign mammary dysplasia of right breast (principal); N63.11 Unspecified lump in the right breast, upper outer quadrant
CPT/HCPCS: 99213

== ENCOUNTER → 2024-12-28 11:22 | Outpatient (BNVA) | payer OTHER, SELFPAY | PROVIDERS: PCP Nurse Practitioner Family; Visit Provider Surgery | DX: N60.91 Unspecified benign mammary dysplasia of right breast (principal); N63.11 Unspecified lump in the right breast, upper outer quadrant | CPT/HCPCS: 99212 ==

== ENCOUNTER 2025-01-04 11:22 | Outpatient (AMB) | payer OTHER, SELFPAY ==
--- NOTE | 2025-01-04 11:32 | MHC.OFFVIS ---
Intake Visit Reasons: one week, wound check, recurrence breast lump Intake Note: Patient is seen in office for one wks follow up visit, following breast lump. Pt c/o: reports improvement since last visit. Almost done w/ Doxycycline course. No longer taking rx pain meds. ~ br ultrasound & mammogram: Pending Senior Hadoop Developer Required: No Allergies No Known Allergies Allergy (Verified 12/28/24 11:39) HPI Comments Details: 39-year-old female patient previously diagnosed with atypical lobular hyperplasia of the right breast, placed on a high risk protocol. Her calculated Tyrer-Cuzick remaining lifetime risk of breast cancer was 36.3%. Patient was evaluated by Medical Oncology (Dr. Ott) and started on tamoxifen 20 mg p.o. daily. She developed increased pain, redness and swelling in the right breast and was evaluated last week. She was placed on doxycycline and this week reports an improvement in her pain. Previous mammogram performed at [facility] on 03/31/2024 revealed no mammographic or sonographic evidence of malignancy in either breast. In the area of the right breast an area of thickening in the areola skin measuring 3.3 x 0.6 x 2.0 cm was inhomogeneously hypoechoic, nonvascular in the 3:30 position. She subsequently underwent an excision of the palpable abnormality on 08/22/2024 which revealed focal atypical lobular hyperplasia along with dense fibrosis, pseudoangiomatous stromal hyperplasia, and fibrocystic change. On her last visit arrangements were being made for a diagnostic mammogram and ultrasound. I also suggested MRI as part of the high risk protocol. Overall she feels much improved today with much less pain and swelling. The redness has vanished as well. She does have some tenderness when the breast is palpated. [facility] Medical History Atypical lobular hyperplasia (ALH) of right breast No pertinent past medical history Surgical History History of lumpectomy of both breasts (08/22/24) Tubal ligation status History of 2 sections Social History Alcohol intake: current Alcohol intake frequency: a few times a month Patient Tobacco Use Status: Never used Tobacco Female Reproductive History Menstrual Age of Menarche: 16 Review of Systems Const All systems reviewed & are unremarkable except as noted in HPI and below Denies chills, Denies fever(s), Denies headache(s), Denies poor appetite and Denies weakness ENT Denies headache(s) Card Denies chest pain, Denies irregular heart rhythm, Denies palpitations and Denies dyspnea Resp Denies cough, Denies excessive phlegm production and Denies dyspnea GI Denies abdominal pain, Denies bloating, Denies change in bowel habits, Denies constipation, Denies heartburn, Denies diarrhea, Denies nausea and Denies vomiting Denies urinary frequency and Reports nipple discharge Musc Denies back pain, Denies muscle weakness and Denies numbness Skin/Breast Reports breast swelling, Reports breast skin changes, Reports breast pain, Reports breast mass, Denies changing lesions, Reports nipple discharge and Denies unusual bruising Neuro Denies headache(s), Denies numbness, Denies paresthesias and Denies weakness Psych Denies anxiety and Denies depression Endo Denies palpitations Matt/Lymph Denies lymphadenopathy Physical Exam Const General: no acute distress Chest Other: Right breast: A slight area of swelling in the upper inner quadrant but no erythema. Minimal tenderness to palpation. Skin Other: Warm, dry, no rash Extrem Other: No edema Assessment & Plan Assessment & Plan (1) Atypical lobular hyperplasia (ALH) of right breast: Code(s): N60.91 - Unspecified benign mammary dysplasia of right breast Category: Medical (2) At high risk for breast cancer: Code(s): Z91.89 - Other specified personal risk factors, not elsewhere classified Category: Medical (3) Lump of right breast: Code(s): N63.10 - Unspecified lump in the right breast, unspecified quadrant Category: Medical Qualifiers: Breast mass location: upper outer quadrant Qualified Code(s): N63.11 - Unspecified lump in the right breast, upper outer quadrant Plan Overall the patient is much improved with decreased pain, redness and swelling. I recommended continuing the antibiotics for another week to assure complete resolution. We are awaiting a diagnostic mammogram and ultrasound; I have also ordered MRI because of her high risk status. She will return in 2 weeks for follow-up examination. Orders: Orders MR breast BI wo/w con Today N60.91 - Unspecified benign mammary dysplasia of right breast, Z91.89 - Other specified personal risk factors, not elsewhere classified Medications: Refilled doxycycline hyclate 100 mg PO BID 20 tabs 0RF N63.10 - Unspecified lump in the right breast, unspecified quadrant Coding Level of Care Code Est Pt Level 3 (18647) Complex EM visit Add On G2211 Diagnoses Atypical lobular hyperplasia (ALH) of right breast N60.91 At high risk for breast cancer Z91.89 Mass of upper outer quadrant of right breast N63.11 Breast mass location: upper outer quadrant
--- OUTSIDE RECORDS SUMMARY | 2025-01-04 13:31 | XMS_ITS | Encounter Summary ---
Author Organization [employer] Address [address] [place] [address] Care Team Providers Care Forming Department End Finder Name Role Phone Naa Ramírez Primary Care Provider [phone] Encounter Details Date Type Department Care Team ([facility] st Contact Info) Description 02/14/2023 Abstract [facility] [address] [place] [address] Kamran Martinez, DAVONTE [address] [place] [address] Social History Tobacco Use Types Packs/Day Years [...] on filedocumented in this encounter Care Teams Forming Department End Finder Relationship Specialty Start Date End Date Naa Ramírez FNP [address] [place] [address] PCP - General Family Medicine 08/08/24 documented as of this encounter
--- OUTSIDE RECORDS SUMMARY | 2025-01-04 13:31 | XMS_ITS | Clinical Summary ---
Author Organization [employer] Address [address] [facility] 7[address] [place] [address] Care Team Providers Care Financial Investment Manager Name Role Phone Naa Ramírez ASSISTANT BOOKKEEPER Primary Care Provider [phone] Allergies No known active allergies Medications benzoyl [...] Type Department Care Team Description 12/10/[address] [address] Mague Pearce, WINNIE 12/04/[address] [address] Delfina Juarez RN 11/28/2024 10:00 AM EST Procedure Visit [address] [address] Naa Ramírez FNP Routine cervical smear (Primary Dx); Pelvic pain; Vaginal discharge; Subareolar mass of right breast; Abnormal breast exam; Abnormal pelvic exam; Vaginal hiral 11/28/2024 Orders Only [address] [address] Naa Ramírez FNP 11/20/[address] [address] Mara Elder [place] Chart Prep from Last [...] EST Narrative 12/07/2024 7:58 AM EST ? [facility] ?[address] ?[place] [address] ? Ultrasound Report ? Signed ? Patient: Everett,Areliz ?MR#: [id number] ?? 0923 ? : 1985 ?Acct:[id number] ? Age/Sex: 39 / F ?ADM Date: 01/30/25 ? Loc: HO.US ? Attending Dr: Naa FLANAGAN ? Ordering Physician: Naa Ramírez ?? Date of Service: 12/06/24 ?? Procedure(s): US pelvic and transvaginal ?? Accession Number(s): [id number] ? cc: Naa Ramírez ? EXAMINATION: ? [...] DD/ 1552 ? TD/TT: 12/06/24 1603 ? Director Of Analytical Development: MSM ? Procedure Note Mercedes Hendrix - 12/07/[address] [address] Ultrasound Report Signed Patient: Rasta Floyd#: [id number] 0923 : 1985Acct:[id number] Age/Sex: 39 / FADM Date: 12/06/24 Loc: HO.US Attending Dr: Naa FLANAGAN Ordering Physician: Naa Ramírez Date of Service: 12/06/24 Procedure(s): US pelvic and transvaginal Accession Number(s): [id number] cc: Naa Ramírez EXAMINATION: US PELVIS CLINICAL [...] by James Juárez MD in OV> 12/07/24 0750 DD/ 1552 TD/TT: 12/06/24 1603 Director Of Analytical Development: MATESU Naa FLANAGAN IMG US PROCEDURES Final Result * STI testing add on (NG, CT, Trich) (11/28/2024 11:15 AM EST) Trichomonas (NAAT) NOT DETECTED [facility] Comment:TRICHOMONAS VAGINALI S RNA, QL TMA: NOT DETECTEDFor additional information, please refer tohttp://PPDai.Netbiscuits/faq/Trichomonastma(This link is being provided for informational/educational purposes only.)Test performed by: [employer] [employer] [address] [place] [address], 3rd floor, [place] [address] Director: Florencia Zeng MD CLIA: [id number] CTNG Ref Lab NOT DETECTED NOT DETECTED [facility] NG Ref Lab NOT DETECTED NOT DETECTED [facility] Comment:The analytical perfo rmance characteristics of thisassay, when used to test SurePath(TM) specimens have beendetermined by [employer]. The modifications havenot been cleared or approved by the FDA. This assay hasbeen validated pursuant to the CLIA regulations and isused for clinical purposes.For additional information, please refer tohttps://PPDai.Netbiscuits/faq/BOW641(This link is being provided for information/educational purposes only.) Swab Cervix uteri structure / Unknown 11/28/2024 11:15 AM EST 11/28/2024 1:31 PM EST Narrative [facility] - 12/07/2024 12:09 PM EST Collection Date: [id number] by: MARTIN Smithurccarlton: Cervix Naa Ramírez [facility] LAB CYTOLOGY ORDERABLES Edited Result - Final [facility] [address] [place] [phone] * (ABNORMAL) Bacterial Vaginosis Panel (11/28/2024 11:15 AM EST) TRICHOMONAS VAGINALIS DETECTION BY PCR NOT DETECTED Not Detect [facility] BACTERIAL VAGINOSIS DETECTION BY PCR NEGATIVE Negative [facility] Comment:The BV organism targ ets [...] GROUP DETECTION BY PCR DETECTED(A) Not Detect [facility] Hiral glab krusei PCR NOT DETECTED Not Detect [facility] Swab Vaginal structure / Unknown 11/28/2024 11:15 AM EST 11/28/2024 1:31 PM EST [facility] LAB MICROBIOLOGY - GENERAL ORD ERABLES Final Result [facility] [address] [place] [phone] * HPV DNA, Low/High Risk (11/28/2024 11:15 AM EST) HPV High Risk Negative Negative [facility] HPV Genotype 16 Negative Negative [facility] HPV Genotype 18 Negative Negative [facility] Comment:HPV testing performe d at [facility] (CLIA#[id number]), [address] [place] [address].Testing for HPV was performed using the Rasheed [...] 5 AM EST 11/28/2024 2:00 PM EST [facility] LAB BLOOD ORDERABLES Final Res ult [facility] [address] [place] [address] [phone] * Pap Smear (11/28/2024 11:15 AM EST) Swab Cervix uteri structure / Unknown 11/28/2024 11:15 AM EST 11/28/2024 2:00 PM EST Narrative [facility] - 12/04/2024 10:17 AM EST ----- ------- Name: Lazaro Floyd ? Age/Sex: 39/F ? : 1985 Unit#: [id number] ?? Attend Dr: Naa Ramírez ?Re11/28/24 ?Status: DEP REF ? Location: HO.HHCLNP ? Disch: ? ----- ------- SPEC : [id number] ? RECD: 11/28/24-1400 ? STATUS: ??SOUT ? REQ NUM: [id number] ? JYOTI: 11/28/24-1115 ? SUBM DR: Naa Ramírez ASSISTANT BOOKKEEPER ? ENTERED: ??11/28/24-1409 ?SP TYPE: Pap Smr [...] END OF REPORT ? us Naa Ramírez ASSISTANT BOOKKEEPER LAB CYTOLOGY ORDERABLES Final Result Performing Organization Address City/[facility]/ZIP Co de Phone Number [facility] [address] [place] [address] [phone] * Hepatitis C Antibody with Reflex to HCV, RNA, Quantitative, Real-Time PCR (05/16/2024 1:28 PM EDT) Pathologist [facility] Hepatitis C Antibody Nonreactive Nonreactive [facility] Comment:Antibodies to HCV no t detected; does not exclude early acuteHCV infection. Blood Venous blood specimen / Unknown 05/16/2024 1:28 PM EDT 05/16/2024 3:51 PM EDT Evelyne Keita [facility] LAB BLOOD ORDERABLES Renuka l Result Performing Organization Address [facility]/ZIP Co de Phone Number [facility] [address] [place] [address] [phone] * HIV-1/2 Antigen and Antibodies, Fourth Generation, with Reflexes (05/16/2024 1:28 PM EDT) HIV AB/AG Nonreactive Nonreactive [facility] Comment:HIV-1 p24 Ag and/or HIV-1/HIV-2 Ab not detected.A test result that is nonreactive does not exclude thepossibility of exposure to or infection with HIV-1 and/orHIV-2. Nonreactive results in this assay for individualswith prior exposure to HIV-1 and/or HIV-2 may be due toantigen and antibody levels that are below the limit ofdetection of this assay.The Pe[employer]ase HIV Ag/Ab Combo assay result andsupplemental assay results should be interpreted inconjunction with the patient's clinical presentation,history and other laboratory results. If the results areinconsistent with clinical evidence, additional testing issuggested to confirm the result. Blood Venous blood specimen / Unknown 05/16/2024 1:28 PM EDT 05/16/2024 3:51 PM EDT Evelyne Keita [facility] LAB BLOOD ORDERABLES Renuka eligio Result [facility] [address] [place] [address] [phone] from Last 3 Months or Most Recently Relevant to Health Maintenance Insurance HSN PARTIAL [facility] PLAN [place] STAND AD[place] Care Teams Financial Investment Manager Relationship Specialty Start Date End Date Naa Ramírez FNP [address] [place] [address] PCP - General Family Medicine 08/08/24
--- OUTSIDE RECORDS SUMMARY | 2025-01-04 13:31 | XMS_ITS | Encounter Summary ---
Author Organization [employer] Address [address] [facility] [address] 7t [place] [address] Care Team Providers Care Plug Wirer Name Role Phone Naa Ramírez COIL WINDER REPAIR Primary Care Provider [phone] Encounter Details Date Type Department Care Team ([facility] st Contact Info) Description 12/10/2024 Telephone [facility] MEDICINE [address] [place] [address] Mague Pearce, RN [address] [place] [address] Social History Tobacco Use Types Packs/Day Years [...] included. T/C placed to pt via [employer] Architect Wojciech #[id number] to advise of message from PCP: MASHA Goodman [facility] Blue Team Nurses Please let Lazaro know [...] documented as of this encounter Care Teams Plug Wirer Relationship Specialty Start Date End Date Naa Ramírez FNP [address] [place] [address] PCP - General Family Medicine 08/08/24 documented as of this encounter
--- OUTSIDE RECORDS SUMMARY | 2025-01-04 13:31 | XMS_ITS | Encounter Summary ---
Author Organization [facility] Address [address] [facility] 7t [place] [address] Care Team Providers Care Photographer Apprentice Lithographic Name Role Phone Naa Ramírez Primary Care Provider [phone] Encounter Details Date Type Department Care Team (Latest Contact Info) Description 01/15/2021 Abstract [facility] CONVERSIONS Dental, Provider, DDS Social History [...] on filedocumented in this encounter Care Teams Photographer Apprentice Lithographic Relationship Specialty Start Date End Date Naa Ramírez FNP [address] [place] [address] PCP - General Family Medicine 08/08/24 documented as of this encounter
--- OUTSIDE RECORDS SUMMARY | 2025-01-04 13:31 | XMS_ITS | Encounter Summary ---
Author Organization [employer] Address [address] [facility] [address]t [place] [address] Care Team Providers Care Stuffing Machine Operator Name Role Phone Naa Ramírez SOLID WASTE ENGINEER Primary Care Provider [phone] Encounter Details Date Type Department Care Team ([facility] st Contact Info) Description 05/17/2024 Orders Only [facility] MEDICINE [address] [place] [address] Evelyne Keita CNM [address] [place] [address] No history of hepatitis B vaccination (Primary [...] CNM LAB BLOOD ORDERABLES Renuka l Result [facility] [address] [place] [address] [phone] documented in this encounter Visit Diagnoses Diagnosis No history of hepatitis B vaccination- Primary documented in this encounter Care Teams Stuffing Machine Operator Relationship Specialty Start Date End Date Naa Ramírez FNP [address] [place] [address] PCP - General Family Medicine 08/08/24 documented as of this encounter
--- OUTSIDE RECORDS SUMMARY | 2025-01-04 13:31 | XMS_ITS | Encounter Summary ---
Author Organization [employer] Address [address] [facility] [address] [place] [address] Care Team Providers Care Floor Nurse Name Role Phone Naa Ramírez Primary Care Provider [phone] Encounter Details Date Type Department Care Team ([facility] st Contact Info) Description 12/20/2022 Abstract [facility] ADULT D[facility]AL [address] [place] [address] Kamran Martinez, DAVONTE [address] [place] [address] Social History Tobacco Use Types Packs/Day Years [...] on filedocumented in this encounter Care Teams Floor Nurse Relationship Specialty Start Date End Date Naa Ramírez FNP [address] [place] [address] PCP - General Family Medicine 08/08/24 documented as of this encounter
== END 2025-01-04 11:49 | disposition home or self-care (01) ==
PROVIDERS: PCP Nurse Practitioner Family; Visit Provider Surgery
DX: N60.91 Unspecified benign mammary dysplasia of right breast (principal); Z91.89 Other specified personal risk factors, not elsewhere classified; N63.11 Unspecified lump in the right breast, upper outer quadrant
CPT/HCPCS: 99213; G2211

== ENCOUNTER → 2025-01-04 11:22 | Outpatient (BNVA) | payer OTHER, SELFPAY | PROVIDERS: PCP Nurse Practitioner Family; Visit Provider Surgery | DX: N60.91 Unspecified benign mammary dysplasia of right breast (principal); N63.11 Unspecified lump in the right breast, upper outer quadrant; Z91.89 Other specified personal risk factors, not elsewhere classified | CPT/HCPCS: 99212 ==

== ENCOUNTER → 2025-01-21 13:34 | Outpatient (BNV) | payer OTHER, SELFPAY | PROVIDERS: PCP Nurse Practitioner Family; Visit Provider Internal Medicine | DX: N64.4 Mastodynia (principal) | CPT/HCPCS: 77049 ==

== ENCOUNTER 2025-01-21 13:46 | Outpatient (REF) | payer OTHER, SELFPAY ==
[2025-01-21] MEDS: gadobutroL 7.5 ML VIAL IVPUSH (14:36)
--- OUTSIDE RECORDS SUMMARY | 2025-01-21 16:03 | XMS_ITS | Encounter Summary ---
Author Organization [employer] [facility] Address [address] [facility] 7t [place] [address] Care Team Providers Care Coil Winding Machines Set Up Mechanic Name Role Phone Naa Ramírez Primary Care Provider [phone] Encounter Details Date Type Department Care Team (Latest Contact Info) Description 01/15/2021 Abstract [facility] CONVERSIONS Dental, Provider, DDS Social History [...] on filedocumented in this encounter Care Teams Coil Winding Machines Set Up Mechanic Relationship Specialty Start Date End Date Naa Ramírez FNP [address] [place] [address] PCP - General Family Medicine 08/08/24 documented as of this encounter
--- OUTSIDE RECORDS SUMMARY | 2025-01-21 16:03 | XMS_ITS | Encounter Summary ---
Author Organization [employer] Address [address] [facility] [address] [place] [address] Care Team Providers Care Clam Bed Laborer Name Role Phone Naa Ramírez Primary Care Provider [phone] Encounter Details Date Type Department Care Team ([facility] st Contact Info) Description 12/20/2022 Abstract [facility] ADULT D[facility] [address] [place] [address] Kamran Martinez, DAVONTE [address] [place] [address] Social History Tobacco Use Types Packs/Day Years [...] on filedocumented in this encounter Care Teams Clam Bed Laborer Relationship Specialty Start Date End Date Naa Ramírez FNP [address] [place] [address] PCP - General Family Medicine 08/08/24 documented as of this encounter
--- OUTSIDE RECORDS SUMMARY | 2025-01-21 16:03 | XMS_ITS | Encounter Summary ---
Author Organization [employer] Address [address] [facility] [address] 7[address] [place] [address] Care Team Providers Care Governor Assembler Name Role Phone Naa Ramírez COOLING ROOM ATTENDANT Primary Care Provider [phone] Encounter Details Date Type Department Care Team ([facility] st Contact Info) Description 05/17/2024 Orders Only [facility] MEDICINE [address] [place] [address] Evelyne Keita CNM [address] [place] [address] No history of hepatitis B vaccination (Primary [...] CNM LAB BLOOD ORDERABLES Renuka l Result [facility] [address] [place] [address] [phone] documented in this encounter Visit Diagnoses Diagnosis No history of hepatitis B vaccination- Primary documented in this encounter Care Teams Governor Assembler Relationship Specialty Start Date End Date Naa Ramírez FNP [address] [place] [address] PCP - General Family Medicine 08/08/24 documented as of this encounter
--- OUTSIDE RECORDS SUMMARY | 2025-01-21 16:03 | XMS_ITS | Encounter Summary ---
Author Organization [employer] Address [address] [facility] [address] 7[address] [place] [address] Care Team Providers Care Roll Slicing Machine Tender Name Role Phone Naa Ramírez Primary Care Provider [phone] Encounter Details Date Type Department Care Team ([facility] st Contact Info) Description 02/14/2023 Abstract [facility] ADULT DENTAL [address] [place] [address] Kamran Martinez, DAVONTE [address] [place] [address] Social History Tobacco Use Types Packs/Day Years [...] on filedocumented in this encounter Care Teams Roll Slicing Machine Tender Relationship Specialty Start Date End Date Naa Ramírez FNP [address] [place] [address] PCP - General Family Medicine 08/08/24 documented as of this encounter
--- OUTSIDE RECORDS SUMMARY | 2025-01-21 16:03 | XMS_ITS | Clinical Summary ---
Author Organization [employer] Address [address] [facility] 7t [place] [address] Care Team Providers Care Anthropology Professor Name Role Phone Naa Ramírez HYDRAULIC ELEVATOR CONSTRUCTOR Primary Care Provider [phone] Allergies No known active allergies Medications benzoyl [...] Department Care Team Description 12/10/[address] [address] Mague Pearce, WINNIE 12/04/[address] [address] Delfina Juarez RN 11/28/2024 10:00 AM EST Procedure Visit [address] [address] Naa Ramírez FNP Routine cervical smear (Primary Dx); Pelvic pain; Vaginal discharge; Subareolar mass of right breast; Abnormal breast exam; Abnormal pelvic exam; Vaginal hiral 11/28/2024 Orders Only [address] [address] Naa Ramírez FNP 11/20/[address] [address] Mara Elder [place] Chart Prep from Last [...] EST Narrative 12/07/2024 7:58 AM EST ? [facility] ?[address] ?[place] [address] ? Ultrasound Report ? Signed ? Patient: Everett,Arelinola ?MR#: [id number] ?? 0923 ? : 1985 ?Acct:[id number] ? Age/Sex: 39 / F ?ADM Date: 12/06/ ? Loc: HO.US ? Attending Dr: Naa Ramírez HYDRAULIC ELEVATOR CONSTRUCTOR ? Ordering Physician: Naa Ramírez HYDRAULIC ELEVATOR CONSTRUCTOR ?? Date of Service: 12/06/24 ?? Procedure(s): US pelvic and transvaginal ?? Accession Number(s): [id number] ? cc: MildredamberlyNaaalireza FLANAGAN ? EXAMINATION: ? US PELVIS ? CLINICAL [...] 07:55 AM EST RP ? Dictated By: ?James Juárez MD ? Signed By: ?<Electronically signed by James Sybil Juárez MD in OV> ?12/07/24 0755 ? DD/ 1552 ? TD/TT: 12/06/24 1603 ? Testing Analyst: MSM ? Procedure Note Ruma, Image - 12/07/[address] [address] Ultrasound Report Signed Patient: Rasta Floyd#: [id number] 0923 : 1985Acct:[id number] Age/Sex: 39 / FADM Date: 12/06/24 Loc: HO.US Attending Dr: Naa FLANAGAN Ordering Physician: Naa Ramírez Date of Service: 12/06/24 Procedure(s): US pelvic and transvaginal Accession Number(s): [id number] cc: Naa Ramírez EXAMINATION: US PELVIS CLINICAL [...] 12/07/24 0755 DD/ 1552 TD/TT: 12/06/24 1603 Testing Analyst: MATEUS us Naa FLANAGAN IMG US PROCEDURES Final Result * STI testing add on (NG, CT, Trich) (11/28/2024 11:15 AM EST) Trichomonas (NAAT) NOT DETECTED [facility] Comment:TRICHOMONAS VAGINALI S RNA, QL TMA: NOT DETECTEDFor additional information, please refer tohttp://education.[email or web address]/faq/Trichomonastma(This link is being provided for informational/educational purposes only.)Test performed by: [employer] [employer] [address] [place] [address], 3rd floor, [place] [address] Director: Florencia Zeng MD CLIA: [id number] CTNG Ref Lab NOT DETECTED NOT DETECTED [facility] NG Ref Lab NOT DETECTED NOT DETECTED [facility] Comment:The analytical perfo rmance characteristics of thisassay, when used to test SurePath(TM) specimens have beendetermined by [employer]. The modifications havenot been cleared or approved by the FDA. This assay hasbeen validated pursuant to the CLIA regulations and isused for clinical purposes.For additional information, please refer tohttps://education.PicBadges/faq/HBK749(This link is being provided for information/educational purposes only.) Swab Cervix uteri structure / Unknown 11/28/2024 11:15 AM EST 11/28/2024 1:31 PM EST Narrative [facility] - 12/07/2024 12:09 PM EST Collection Date: [id number] by: MARTIN Navarro: Cervix Naa Ramírez [facility] CYTOLOGY ORDERABLES Edited Result - Final [facility] [address] [place] [phone] * (ABNORMAL) Bacterial Vaginosis Panel (11/28/2024 11:15 AM EST) TRICHOMONAS VAGINALIS DETECTION BY PCR NOT DETECTED Not Detect [facility] BACTERIAL VAGINOSIS DETECTION BY PCR NEGATIVE Negative [facility] Comment:The BV organism targ ets [...] GROUP DETECTION BY PCR DETECTED(A) Not Detect [facility] Hiral glab krusei PCR NOT DETECTED Not Detect [facility] Swab Vaginal structure / Unknown 11/28/2024 11:15 AM EST 11/28/2024 1:31 PM EST [facility] MICROBIOLOGY - GENERAL ORD ERABLES Final Result Performing Organization Address [facility]/ZIP Co de Phone Number [facility] [address] [place] [phone] * HPV DNA, Low/High Risk (11/28/2024 11:15 AM EST) HPV High Risk Negative Negative [facility] HPV Genotype 16 Negative Negative [facility] HPV Genotype 18 Negative Negative [facility] Comment:HPV testing performe d at (CLIA#[id number]), [address] [place] [address].Testing for HPV was performed using the Rasheed [...] 5 AM EST 11/28/2024 2:00 PM EST [employer] [facility] BLOOD ORDERABLES Final Res ult Performing Organization Address [facility]/ZIP Co de Phone Number [facility] [address] [place] [phone] * Pap Smear (11/28/2024 11:15 AM EST) Swab Cervix uteri structure / Unknown 11/28/2024 11:15 AM EST 11/28/2024 2:00 PM EST Romina [facility] - 12/04/2024 10:17 AM EST ----- ------- Name: Lazaro Floyd ? Age/Sex: 39/F ? : 1985 Unit#: [id number] ?? Attend Dr: Naa Ramírez HYDRAULIC ELEVATOR CONSTRUCTOR ?Re11/28/24 ?Status: DEP REF ? [facility] ? Disch: ? ----- ------- SPEC : [id number] ? RECD: 11/28/24-1400 ? STATUS: ??SOUT ? REQ NUM: [id number] ? JYOTI: 11/28/24-1115 ? SUBM DR: Naa Ramírez HYDRAULIC ELEVATOR CONSTRUCTOR ? ENTERED: ??11/28/24-1409 ?SP TYPE: Pap Smr [...] ------- ? END OF REPORT ? Naa Ramírez HYDRAULIC ELEVATOR CONSTRUCTOR LAB CYTOLOGY ORDERABLES Final Result Performing Organization Address [facility]/ZIP Co de Phone Number [facility] [address] [place] [address] [phone] * Hepatitis C Antibody with Reflex to HCV, RNA, Quantitative, Real-Time PCR (05/16/2024 1:28 PM EDT) Hepatitis C Antibody Nonreactive Nonreactive [facility] Comment:Antibodies to HCV no t detected; does not exclude early acuteHCV infection. Blood Venous blood specimen / Unknown 05/16/2024 1:28 PM EDT 05/16/2024 3:51 PM EDT Evelyne Keita [facility] LAB BLOOD ORDERABLES Renuka l Result Performing Organization Address [facility] Co de Phone Number [facility] [address] [place] [address] [phone] * HIV-1/2 Antigen and Antibodies, Fourth Generation, with Reflexes (05/16/2024 1:28 PM EDT) HIV AB/AG Nonreactive Nonreactive [facility] Comment:HIV-1 p24 Ag and/or HIV-1/HIV-2 Ab not detected.A test result that is nonreactive does not exclude thepossibility of exposure to or infection with HIV-1 and/orHIV-2. Nonreactive results in this assay for individualswith prior exposure to HIV-1 and/or HIV-2 may be due toantigen and antibody levels that are below the limit ofdetection of this assay.The [employer] HIV Ag/Ab Combo assay result andsupplemental assay results should be interpreted inconjunction with the patient's clinical presentation,history and other laboratory results. If the results areinconsistent with clinical evidence, additional testing issuggested to confirm the result. Blood Venous blood specimen / Unknown 05/16/2024 1:28 PM EDT 05/16/2024 3:51 PM EDT us Evelyne Keita CNM LAB BLOOD ORDERABLES Renuka l Result [facility] [address] [place] [address] [phone] from Last 3 Months or Most Recently Relevant to Health Maintenance Insurance HSN PARTIAL [facility] PLAN [facility] Address: [facility] [address] [place] [address] [place] ST[place] AD[place] Care Teams Anthropology Professor Relationship Specialty Start Date End Date Naa Ramírez FNP [address] [place] [address] PCP - General Family Medicine 08/08/24
== END 2025-01-21 13:47 | disposition home or self-care (01) ==
LOC: HO.MRI 13:46
PROVIDERS: PCP Nurse Practitioner Family; Visit Provider Surgery
DX: N60.91 Unspecified benign mammary dysplasia of right breast (principal); Z91.89 Other specified personal risk factors, not elsewhere classified
CPT/HCPCS: 77049; A9585

== ENCOUNTER 2025-01-22 12:52 | Outpatient (AMB) | payer OTHER, SELFPAY ==
--- NOTE | 2025-01-22 12:53 | A.OFFVIS_ITS ---
Vital Signs 3 01/22/25 12:59 Height 5 ft 1 in Weight 152 lb 1.903 oz BMI 28.7 BP 130/69 Blood Pressure Location Lt brachial Position Sitting Pulse 91 Intake Visit Reasons: 2 week, wound check, recurrence breast lump Intake Note: Patient is seen in office for 2 weeks follow up visit, wound check breast lump. Pt c/o: no concerns states is healing Rotary Driller Helper Required: No Animal Behaviorist: Animal Behaviorist Present Accompanied by: Self / Same As Patient Allergies No Known Allergies Allergy (Verified 01/22/25 12:55) Medication List - Last Reconciled 01/22/25 by Stu Marmolejo MD ibuprofen 600 mg PO Q8H PRN tamoxifen 20 mg PO DAILY HPI Comments Details: 39-year-old female patient previously diagnosed with atypical lobular hyperplasia of the right breast, placed on a high risk protocol. Her calculated Tyrer-Cuzick remaining lifetime risk of breast cancer was 36.3%. Patient was evaluated by Medical Oncology (Dr. Ott) and started on tamoxifen 20 mg p.o. daily. She developed increased pain, redness and swelling in the right breast one-month ago and subsequently started on doxycycline. Since this time her symptoms have markedly improved. She no longer has any redness, pain or discharge. She was completed the antibiotics as prescribed. Previous mammogram performed at [facility] on 03/31/2024 revealed no mammographic or sonographic evidence of malignancy in either breast. In the area of the right breast an area of thickening in the areola skin measuring 3.3 x 0.6 x 2.0 cm was inhomogeneously hypoechoic, nonvascular in the 3:30 position. She subsequently underwent an excision of the palpable abnormality on 08/22/2024 which revealed focal atypical lobular hyperplasia along with dense fibrosis, pseudoangiomatous stromal hyperplasia, and fibrocystic change. She underwent a breast MRI yesterday, the results of which have not been read at the time of this dictation. She was also scheduled for a mammogram on 02/18/2025. [facility] Medical History Atypical lobular hyperplasia (ALH) of right breast No pertinent past medical history Surgical History History of lumpectomy of both breasts (08/22/24) Tubal ligation status History of 2 sections Social History Alcohol intake: current Alcohol intake frequency: a few times a month Patient Tobacco Use Status: Never used Tobacco Female Reproductive History Menstrual Age of Menarche: 16 Review of Systems Const All systems reviewed & are unremarkable except as noted in HPI and below Physical Exam Vital Signs: Last Vital Signs Pulse 91 01/22/25 12:59 BP 130/69 01/22/25 12:59 BMI result Body Mass Index 28.7 Const General: no acute distress Chest Other: Right breast: Wounds are completely healed with no erythema, tenderness, mass or fluctuance. Chest/axillae images: 2 1. Incision upper outer quadrant right breast Skin Other: Warm, dry, no rash Extrem Other: No edema Assessment & Plan Assessment & Plan (1) Atypical lobular hyperplasia (ALH) of right breast: Code(s): N60.91 - Unspecified benign mammary dysplasia of right breast Category: Medical (2) At high risk for breast cancer: Code(s): Z91.89 - Other specified personal risk factors, not elsewhere classified Category: Medical (3) Lump of right breast: Code(s): N63.10 - Unspecified lump in the right breast, unspecified quadrant Category: Medical Qualifiers: Breast mass location: upper outer quadrant Qualified Code(s): N63.11 - Unspecified lump in the right breast, upper outer quadrant Plan Patient's previous infection in the right breast has resolved and there was no further redness or pain. She underwent breast MRI yesterday, the results of which are pending at this time. I will notify her of the results of the MRI once it has been read. She will follow-up on March 05 for routine breast examination and review of her next mammogram scheduled for 02/18/2025. She should call sooner for any new concerns. Coding Level of Care Code Est Pt Level 3 (88359) Diagnoses Atypical lobular hyperplasia (ALH) of right breast N60.91 At high risk for breast cancer Z91.89 Mass of upper outer quadrant of right breast N63.11 Breast mass location: upper outer quadrant
[2025-01-22 12:59] VITALS: BP 130/69; PULSE 91; BMI 28.7
--- OUTSIDE RECORDS SUMMARY | 2025-01-22 15:07 | XMS_ITS | Encounter Summary ---
Author Organization [employer] [facility] Address [address] [facility] [address] [place] [address] Care Team Providers Care Slip Cover Seamstress Name Role Phone Naa Ramírez Primary Care Provider [phone] Encounter Details Date Type Department Care Team (Latest Contact Info) Description 01/15/2021 Abstract [facility] CONVERSIONS Dental, Provider, DDS Social History [...] on filedocumented in this encounter Care Teams Slip Cover Seamstress Relationship Specialty Start Date End Date Naa Ramírez FNP [address] [place] [phone] PCP - General Family Medicine 08/08/24 documented as of this encounter
--- OUTSIDE RECORDS SUMMARY | 2025-01-22 15:07 | XMS_ITS | Encounter Summary ---
Author Organization [employer] Address [address] [place] [address] Care Team Providers Care Product Mgmt Dev Manager Name Role Phone Naa Ramírez Primary Care Provider [phone] Encounter Details Date Type Department Care Team ([facility] st Contact Info) Description 02/14/2023 Abstract [facility] ADULT DENTAL [address] [place] [address] Kamran Martinez, DAVONTE [address] [place] [address] Social History Tobacco Use Types Packs/Day Years [...] on filedocumented in this encounter Care Teams Product Mgmt Dev Manager Relationship Specialty Start Date End Date Naa Ramírez FNP [address] [place] [address] PCP - General Family Medicine 08/08/24 documented as of this encounter
--- OUTSIDE RECORDS SUMMARY | 2025-01-22 15:07 | XMS_ITS | Encounter Summary ---
Author Organization [employer] Address [address] [place] [address] Care Team Providers Care Associate Director Of Sales Name Role Phone Naa Ramírez TACKER OFF Primary Care Provider [phone] Encounter Details Date Type Department Care Team ([facility] st Contact Info) Description 05/17/2024 Orders Only [facility] MEDICINE [address] [place] [address] Evelyne Keita CNM [address] [place] [address] No history of hepatitis B vaccination (Primary [...] us Evelyne Keita CNM LAB BLOOD ORDERABLES Renuak l Result [facility] [address] [place] [phone] [phone] documented in this encounter Visit Diagnoses Diagnosis No history of hepatitis B vaccination- Primary documented in this encounter Care Teams Associate Director Of Sales Relationship Specialty Start Date End Date Naa Ramírez FNP [address] [place] [phone] PCP - General Family Medicine 08/08/24 documented as of this encounter
--- OUTSIDE RECORDS SUMMARY | 2025-01-22 15:07 | XMS_ITS | Encounter Summary ---
Author Organization [employer] Address [address] [place] [address] Care Team Providers Care Computer Compositor Name Role Phone Naa Ramírez Primary Care Provider [phone] Encounter Details Date Type Department Care Team ([facility] st Contact Info) Description 12/20/2022 Abstract [facility] ADULT DENTAL [address] [place] [address] Kamran Martinez, DAVONTE [address] [place] [address] Social History Tobacco Use Types Packs/Day Years [...] on filedocumented in this encounter Care Teams Computer Compositor Relationship Specialty Start Date End Date Naa Ramírez FNP [address] [place] [address] PCP - General Family Medicine 08/08/24 documented as of this encounter
--- OUTSIDE RECORDS SUMMARY | 2025-01-22 15:07 | XMS_ITS | Clinical Summary ---
Author Organization [facility] Address [address] [place] [address] Care Team Providers Care Logistics Solution Manager Name Role Phone Naa Ramírez COUNSELOR SUPERVISOR Primary Care Provider [phone] Allergies No known active allergies Medications benzoyl [...] Type Department Care Team Description 12/10/[address] [address] Mague Pearce, WINNIE 12/04/[address] [address] Delfina Juarez RN 11/28/2024 10:00 AM EST Procedure Visit [address] [address] Naa Ramírez FNP Routine cervical smear (Primary Dx); Pelvic pain; Vaginal discharge; Subareolar mass of right breast; Abnormal breast exam; Abnormal pelvic exam; Vaginal hiral 11/28/2024 Orders Only [address] [address] Naa Ramírez FNP 11/20/[address] [address] Mara Elder [place] Chart Prep from Last [...] EST Narrative 12/07/2024 7:58 AM EST ? [facility] ?[address] ?[place] [address] ? Ultrasound Report ? Signed ? Patient: Everett,Arelinola ?MR#: [id number] ?? 0923 ? : 1985 ?Acct:[id number] ? Age/Sex: 39 / F ?ADM Date: 12/06/ ? Loc: HO.US ? Attending Dr: Naa Ramírez COUNSELOR SUPERVISOR ? Ordering Physician: Naa Ramírez COUNSELOR SUPERVISOR ?? Date of Service: 12/06/24 ?? Procedure(s): US pelvic and transvaginal ?? Accession Number(s): [id number] ? cc: MildredamberlyNaaalireza FLNAAGAN ? EXAMINATION: ? US PELVIS ? CLINICAL [...] DD/ 1552 ? TD/TT: 12/06/24 1603 ? Sheet Metal Worker Supervisor: MSM ? Procedure Note Ruma, Image - 12/07/[address] [address] Ultrasound Report Signed Patient: Rasta Floyd#: [id number] 0923 : 1985Acct:[id number] Age/Sex: 39 / FADM Date: 12/06/24 Loc: HO.US Attending Dr: Naa FLANAGAN Ordering Physician: Naa Ramírez Date of Service: 12/06/24 Procedure(s): US pelvic and transvaginal Accession Number(s): [id number] cc: Naa Ramírez EXAMINATION: US PELVIS CLINICAL [...] 12/07/24 0755 DD/ 1552 TD/TT: 12/06/24 1603 Sheet Metal Worker Supervisor: MATEUS us Naa FLANAGAN IMG US PROCEDURES Final Result * STI testing add on (NG, CT, Trich) (11/28/2024 11:15 AM EST) Trichomonas (NAAT) NOT DETECTED [facility] Comment:TRICHOMONAS VAGINALI S RNA, QL TMA: NOT DETECTEDFor additional information, please refer tohttp://education.[employer]/faq/Trichomonastma(This link is being provided for informational/educational purposes only.)Test performed by: [facility] [employer] [address] [place] [address], 3rd floor, [place] [address] Director: Florencia Zeng MD CLIA: [id number] CTNG Ref Lab NOT DETECTED NOT DETECTED [facility] NG Ref Lab NOT DETECTED NOT DETECTED [facility] Comment:The analytical perfo rmance characteristics of thisassay, when used to test SurePath(TM) specimens have beendetermined by [facility]. The modifications havenot been cleared or approved by the FDA. This assay hasbeen validated pursuant to the CLIA regulations and isused for clinical purposes.For additional information, please refer tohttps://education.[employer]/faq/DFV219(This link is being provided for information/educational purposes only.) Swab Cervix uteri structure / Unknown 11/28/2024 11:15 AM EST 11/28/2024 1:31 PM EST Narrative [facility] - 12/07/2024 12:09 PM EST Collection Date: [id number] by: MARTIN Navarro: Cervix Naa Ramírez [facility] CYTOLOGY ORDERABLES Edited Result - Final [facility] [address] [place] [phone] * (ABNORMAL) Bacterial Vaginosis Panel (11/28/2024 11:15 AM EST) TRICHOMONAS VAGINALIS DETECTION BY PCR NOT DETECTED Not Detect [facility] BACTERIAL VAGINOSIS DETECTION BY PCR NEGATIVE Negative [facility] Comment:The BV organism targ ets [...] GROUP DETECTION BY PCR DETECTED(A) Not Detect [facility] Hiral glab krusei PCR NOT DETECTED Not Detect [facility] Swab Vaginal structure / Unknown 11/28/2024 11:15 AM EST 11/28/2024 1:31 PM EST [facility] MICROBIOLOGY - GENERAL ORD ERABLES Final Result Performing Organization Address [facility]/ZIP Co de Phone Number [facility] [address] [place] [phone] * HPV DNA, Low/High Risk (11/28/2024 11:15 AM EST) HPV High Risk Negative Negative [facility] HPV Genotype 16 Negative Negative [facility] HPV Genotype 18 Negative Negative [facility] Comment:HPV testing performe d at [facility] (CLIA#[id number]), [address] [place] [address].Testing for HPV was performed using the Rasheed [...] 5 AM EST 11/28/2024 2:00 PM EST [facility] BLOOD ORDERABLES Final Res ult Performing Organization Address [facility]/ZIP Co de Phone Number [facility] [address] [place] [phone] * Pap Smear (11/28/2024 11:15 AM EST) Swab Cervix uteri structure / Unknown 11/28/2024 11:15 AM EST 11/28/2024 2:00 PM EST Romina [facility] - 12/04/2024 10:17 AM EST ----- ------- Name: Lazaro Floyd ? Age/Sex: 39/F ? : 1985 Unit#: [id number] ?? Attend Dr: Naa Ramírez COUNSELOR SUPERVISOR ?Re11/28/24 ?Status: DEP REF ? [facility] ? Disch: ? ----- ------- SPEC : [id number] ? RECD: 11/28/24-1400 ? STATUS: ??SOUT ? REQ NUM: [id number] ? JYOTI: 11/28/24-1115 ? SUBM DR: Naa Ramírez COUNSELOR SUPERVISOR ? ENTERED: ??11/28/24-1409 ?SP TYPE: Pap Smr [...] ? END OF REPORT ? Naa Ramírez COUNSELOR SUPERVISOR LAB CYTOLOGY ORDERABLES Final Result Performing Organization Address [facility]/ZIP Co de Phone Number [facility] [address] [place] [address] [phone] * Hepatitis C Antibody with Reflex to HCV, RNA, Quantitative, Real-Time PCR (05/16/2024 1:28 PM EDT) Hepatitis C Antibody Nonreactive Nonreactive [facility] Comment:Antibodies to HCV no t detected; does not exclude early acuteHCV infection. Blood Venous blood specimen / Unknown 05/16/2024 1:28 PM EDT 05/16/2024 3:51 PM EDT Evelyne Keita [facility] LAB BLOOD ORDERABLES Renuka l Result Performing Organization Address [facility] Co de Phone Number [facility] [address] [place] [phone] * HIV-1/2 Antigen and Antibodies, Fourth Generation, with Reflexes (05/16/2024 1:28 PM EDT) HIV AB/AG Nonreactive Nonreactive [facility] Comment:HIV-1 p24 Ag and/or HIV-1/HIV-2 Ab not detected.A test result that is nonreactive does not exclude thepossibility of exposure to or infection with HIV-1 and/orHIV-2. Nonreactive results in this assay for individualswith prior exposure to HIV-1 and/or HIV-2 may be due toantigen and antibody levels that are below the limit ofdetection of this assay.The [employer] HIV Ag/Ab Combo assay result andsupplemental assay results should be interpreted inconjunction with the patient's clinical presentation,history and other laboratory results. If the results areinconsistent with clinical evidence, additional testing issuggested to confirm the result. Blood Venous blood specimen / Unknown 05/16/2024 1:28 PM EDT 05/16/2024 3:51 PM EDT us Evelyne Keita CNM LAB BLOOD ORDERABLES Renuka l Result [facility] [address] [place] [phone] from Last 3 Months or Most Recently Relevant to Health Maintenance Insurance [facility] [facility] [place] [address] [place] AD[place] Care Teams Logistics Solution Manager Relationship Specialty Start Date End Date Naa Ramírez FNP [address] [place] [address] PCP - General Family Medicine 08/08/24
== END 2025-01-22 13:06 | disposition home or self-care (01) ==
PROVIDERS: PCP Nurse Practitioner Family; Visit Provider Surgery
DX: N60.91 Unspecified benign mammary dysplasia of right breast (principal); Z91.89 Other specified personal risk factors, not elsewhere classified; N63.11 Unspecified lump in the right breast, upper outer quadrant
CPT/HCPCS: 99213

== ENCOUNTER → 2025-01-22 12:52 | Outpatient (BNVA) | payer OTHER, SELFPAY | PROVIDERS: PCP Nurse Practitioner Family; Visit Provider Surgery | DX: N60.91 Unspecified benign mammary dysplasia of right breast (principal); N63.15 Unspecified lump in the right breast, overlapping quadrants; Z91.89 Other specified personal risk factors, not elsewhere classified | CPT/HCPCS: 99212 ==

== ENCOUNTER 2025-02-18 12:18 | Outpatient (REF) | payer OTHER, SELFPAY ==
--- NOTE | ~2025-02-18 | MM_ITS ---
EXAMINATION: MM DIAGNOSTIC DIGITAL BREAST TOMOSYNTHESIS, BILATERAL CLINICAL INFORMATION: Second Look MRI directed ultrasound in the left breast. Right breast palpable lump. COMPARISON: Mammography: Comparison is made with relevant prior exams. TECHNIQUE: Digital breast mammography with tomosynthesis is performed in both the craniocaudal and mediolateral oblique views along with computer-aided detection (CAD). FINDINGS: There are scattered areas of fibroglandular density (ACR BI-RADS breast composition Category b). Right postsurgical changes are stable. There are no significant masses, abnormal calcifications, or other abnormalities. Targeted color Doppler ultrasound scanning in the left retroareolar region demonstrates normal fibroglandular breast tissue. There is no sonographic abnormality. Targeted color Doppler ultrasound scanning in the right breast upper outer quadrant retroareolar region demonstrates an intradermal hypoechoic area of skin thickening/scar/sebaceous cyst. Results are provided to the patient at time of visit by the technologist. MM/MM tomosynthesis diagnostic BI IMPRESSION: Left: No mammographic or sonographic abnormality to account for the left enhancing 5 mm mass on MRI. Recommend six-month follow-up MRI for further evaluation of stability. Right: Area of skin thickening in the area of the palpable lump in the upper outer quadrant retroareolar region this could represent area of scar tissue/sebaceous cyst. Recommend clinical evaluation and follow-up for intradermal thickening. ASSESSMENT: BI-RADS BI-RADS 2 - Benign Findings RECOMMENDATION: 1 year F/U 6 month follow-up breast MRI. Clinical evaluation and follow-up. Yearly screening mammography. This patient's information was entered into a reminder system with a target due date for their next mammogram. Electronically signed by: Fatimah Ayon DO 02/18/2025 03:04 PM EDT
--- OUTSIDE RECORDS SUMMARY | 2025-02-18 14:15 | XMS_ITS | Encounter Summary ---
Author Organization [employer] Address [address] [place] [address] Care Team Providers Care Dust Collector Attendant Name Role Phone Naa Ramírez PRINCIPAL CONSULTANT Primary Care Provider [phone] Reason for Visit * Reason Comments Med Refill Encounter Details Date Type Department Care Team ([facility] st Contact Info) Description 01/27/2025 Refill [facility] MEDICINE [address] [place] [address] Zoraida Leslie MD [address] [place] [address] Hidradenitis suppurativa Social History Tobacco Use Types Packs/Day Years [...] documented as of this encounter Visit Diagnoses Diagnosis Hidradenitis suppurativa Hidradenitis documented in this encounter Additional Health Concerns Assessment Noted Time PHQ-9 Depression Total Score: 0 08/08/20 8:59 AM EDT documented as of this encounter Care Teams Dust Collector Attendant Relationship Specialty Start Date End Date Naa Ramírez FNP [address] [place] [phone] PCP - General Family Medicine 08/08/24 documented as of this encounter
--- OUTSIDE RECORDS SUMMARY | 2025-02-18 14:15 | XMS_ITS | Clinical Summary ---
Author Organization [employer] Address [address] [facility] 7t [place] [address] Care Team Providers Care Bi Developer Name Role Phone Naa Ramírez INTERN PRODUCT MARKETING MANAGER Primary Care Provider Allergies No known active allergies Medications minocycline 100 MG capsuleIndicati ons:Hidradeniti s suppurativa Take 1 capsule (100 mg) by mouth 2 times daily. 180 capsule 09/07/20 24 Active spironolactone (Aldactone) 100 MG tabletIndicatio ns:Hidradenitis suppurativa Take 1 tablet (100 mg) by mouth Once per day. 90 tablet 2 09/07/20 24 Active tamoxifen (Nolvadex) 20 MG chemo tablet Take 1 tablet by mouth Once per day. 09/28/20 24 Active BP Wash 10 % external washIndications :Hidradenitis suppurativa APPLY TOPICALLY TO AFFECTED AREA(S) ONCE DAILY 227 g 1 02/14/20 25 Active benzoyl peroxide (PanOxyl Foaming Wash) 10 % external washIndications :Hidradenitis suppurativa Apply topically Once per day. 227 g 1 09/07/20 24 025 Discontinued Active Problems Problem Noted Date Diagnosed Date [...] Encounters Date Type Department Care Team Description 01/27/[address] [address] Zoraida Leslie MD Hidradenitis suppurativa 01/21/2025 Orders Only [facility] External Provider, [facility] 12/10/[address] [address] Mague Pearce, WINNIE 12/04/[address] [address] Delfina Juarez, WINNIE 11/28/2024 10:00 AM EST Procedure Visit [address] [address] Naa Ramírez FNP Routine cervical smear (Primary Dx); Pelvic pain; Vaginal discharge; Subareolar mass of right breast; Abnormal breast exam; Abnormal pelvic exam; Vaginal hiral 11/28/2024 Orders Only [address] [address] Naa Ramírez FNP 11/20/[address] [address] Mara Elder [place] Chart Prep from Last [...] of 3 - 19+ 3-dose series) 2004 Diagnostic Breast Imaging 07/24/2025 01/21/2025 SDOH Screening 07/27/2025 07/27/2024 Alcohol/Substance Use Screening [...] Procedure Name Priority Date/Time Associated Diagnosis Comments BI MR BREAST W AND WO CONTRAST BILATERAL Routine 01/21/2025 1:34 PM EDT US PELVIS TRANSVAGINAL Routine 12/06/2024 3:52 PM [...] Recently Relevant to Health Maintenance Results * BI MR Breast w and w/o Contrast Bilateral (01/21/2025 1:34 PM EDT) Anatomical Region Laterality Modality Breast Bilateral Magnetic Resonan ce 01/21/2025 1:34 PM EDT Narrative 01/25/2025 12:07 PM EDT ? [place] [facility] ?[address] ?[place] [address] ? Magnetic Resonance Report ? Signed ? Patient: Everett,Areliz ?MR#: [id number] ?? 0923 ? : 1985 ?Acct:[id number] ? Age/Sex: 39 / F ?ADM Date: 01/21/25 ? Loc: HO.MRI ? Attending Dr: Stu Marmolejo MD ? Ordering Physician: Stu Marmolejo MD ?? Date of Service: 01/21/25 ?? Procedure(s): MR breast BI wo/w con ?? Accession Number(s): [id number] ? cc: Stu Marmolejo MD; Naa Ramírez INTERN PRODUCT MARKETING MANAGER ? EXAMINATION: ?? MR BREAST WITHOUT AND WITH CONTRAST, BILATERAL ? CLINICAL INFORMATION: ?? Patient states ducts removed from both breasts August 2024 and her ?? symptoms are back. ?? Bilateral breast pain on and off. ? COMPARISON: ?? Outside mammogram and ultrasound May 31, 2024. ? TECHNIQUE: ?? MR imaging of the breast was performed using T1, T2 and fat saturated ?? techniques. Dynamic multiphase imaging was also performed after ?? administration of intravenous gadolinium contrast agent. ?? Computer generated 3-D reconstruction was generated. ? FINDINGS: ?? There is heterogeneous fibroglandular breast tissue with moderate ?? background enhancement. ? LEFT BREAST: ?? There is a 5 mm oval enhancing mass /foci in the retroareolar region ?? extending just behind the nipple series 1082 image 92/126. ?? No other suspicious areas of nonmass enhancement. ?? No internal mammary or axillary adenopathy. ? RIGHT BREAST: ?? No suspicious enhancing masses or areas of nonmass enhancement. ?? No internal mammary or axillary adenopathy. ? Limited views of the chest and abdomen are unremarkable. ? MR/MR breast BI wo/w con ?? IMPRESSION: ?? Right: Negative. ? Left: Enhancing 5 mm mass/foci in the retroareolar region anterior ?? depth. Recommend ultrasound at this time if no ultrasound correlate is ?? seen six-month follow-up is recommended for further evaluation. ? If the patient is having symptoms of palpable lump or pain within ?? diagnostic mammogram and ultrasound should be ordered and performed. ? ASSESSMENT: ?? LEFT BREAST: BI-RADS 3 probably benign. Recommend ultrasound and if no ?? ultrasound correlate is seen six-month follow-up MRI is recommended. ? RIGHT BREAST: BI-RADS 1-Negative ? RECOMMENDATIONS: ?? Recommend left breast ultrasound. ?? If no ultrasound correlate and six-month follow-up MRI is recommended ?? for further evaluation of stability. ? Electronically signed by: ??Fatimah Ayon DO ??01/25/2025 12:05 PM EDT ? Dictated By: ?Fatimah Ayon DO ? Signed By: ?<Electronically signed by Fatimah Ayon, DO in OV> ? 01/25/25 1205 ? DD/ 1334 ? TD/TT: 01/21/25 1445 ? Cylinder Press Feeder: ? Procedure Note Donradha, Image - 01/25/[address] [address] Magnetic Resonance Report Signed Patient: Rasta Floyd#: [id number] 0923 : 1985Acct:[id number] Age/Sex: 39 / FADM Date: 01/21/25 Loc: HO.MRI Attending Dr: Stu Marmolejo MD Ordering Physician: Stu Marmolejo MD Date of Service: 01/21/25 Procedure(s): MR breast BI wo/w con Accession Number(s): [id number] cc: Stu Marmolejo MD; Naa Ramírez INTERN PRODUCT MARKETING MANAGER EXAMINATION: MR BREAST WITHOUT AND WITH CONTRAST, BILATERAL CLINICAL INFORMATION: Patient states ducts removed from both breasts August 2024 and her symptoms are back. Bilateral breast pain on and off. COMPARISON: Outside mammogram and ultrasound May 31, 2024. TECHNIQUE: MR imaging of the breast was performed using T1, T2 and fat saturated techniques. Dynamic multiphase imaging was also performed after administration of intravenous gadolinium contrast agent. Computer generated 3-D reconstruction was generated. FINDINGS: There is heterogeneous fibroglandular breast tissue with moderate background enhancement. LEFT BREAST: There is a 5 mm oval enhancing mass /foci in the retroareolar region extending just behind the nipple series 1082 image 92/126. No other suspicious areas of nonmass enhancement. No internal mammary or axillary adenopathy. RIGHT BREAST: No suspicious enhancing masses or areas of nonmass enhancement. No internal mammary or axillary adenopathy. Limited views of the chest and abdomen are unremarkable. MR/MR breast BI wo/w con IMPRESSION: Right: Negative. Left: Enhancing 5 mm mass/foci in the retroareolar region anterior depth. Recommend ultrasound at this time if no ultrasound correlate is seen six-month follow-up is recommended for further evaluation. If the patient is having symptoms of palpable lump or pain within diagnostic mammogram and ultrasound should be ordered and performed. ASSESSMENT: LEFT BREAST: BI-RADS 3 probably benign. Recommend ultrasound and if no ultrasound correlate is seen six-month follow-up MRI is recommended. RIGHT BREAST: BI-RADS 1-Negative RECOMMENDATIONS: Recommend left breast ultrasound. If no ultrasound correlate and six-month follow-up MRI is recommended for further evaluation of stability. Electronically signed by: Fatimah Ayon DO 01/25/2025 12:05 PM EDT Dictated By: Fatimah Ayon DO Signed By: <Electronically signed by Fatimah Ayon DO in OV> 01/25/25 1205 DD/ 1334 TD/TT: 01/21/25 1445 Cylinder Press Feeder: [facility] External Provider IMG MRI PROCEDURES Final Result * US Pelvis Transvaginal (12/06/2024 3:52 PM EST) Anatomical Region Laterality Modality Pelvis Ultrasound 12/06/2024 3:52 PM EST Narrative 12/07/2024 7:58 AM EST ? [facility] ?[address] ?[place] [address] ? Ultrasound Report ? Signed ? Patient: Everett,Areliz ?MR#: [id number] ?? 0923 ? : 1985 ?Acct:[id number] ? Age/Sex: 39 / F ?ADM Date: 01/30/25 ? Loc: HO.US ? Attending Dr: Naa FLANAGAN ? Ordering Physician: Naa Ramírez ?? Date of Service: 12/06/24 ?? Procedure(s): US pelvic and transvaginal ?? Accession Number(s): [id number] ? cc: Naa Ramírez ? EXAMINATION: ? [...] Signed By: ?<Electronically signed by James S Marquita, MD in OV> ?12/07/24 0755 ? DD/ 1552 ? TD/TT: 12/06/24 1603 ? Cylinder Press Feeder: MSM ? Procedure Note Ruma, Image - 12/07/[address] [address] Ultrasound Report Signed Patient: EverettLandonCain#: [id number] 0923 : 1985Acct:[id number] Age/Sex: 39 / FADM Date: 12/06/24 Loc: HO.US Attending Dr: Naa FLANAGAN Ordering Physician: Naa Ramírez Date of Service: 12/06/24 Procedure(s): US pelvic and transvaginal Accession Number(s): [id number] cc: Naa Ramírez EXAMINATION: US PELVIS CLINICAL [...] 12/07/24 0755 DD/ 1552 TD/TT: 12/06/24 1603 Cylinder Press Feeder: [facility]ATE[facility] us Naa FLANAGAN IMG US PROCEDURES Final Result * STI testing add on (NG, CT, Trich) (11/28/2024 11:15 AM EST) Trichomonas (NAAT) NOT DETECTED [facility] Comment:TRICHOMONAS VAGINALI S RNA, QL TMA: NOT DETECTEDFor additional information, please refer [email or web address](This link is being provided for informational/educational purposes only.)Test performed by: [facility], [employer] [address] [place] [address], 3rd floor, [place] [address] Director: Florencia Zeng MD CLIA: [id number] CTNG Ref Lab NOT DETECTED NOT DETECTED [facility] NG Ref Lab NOT DETECTED NOT DETECTED [facility] Comment:The analytical perfo rmance characteristics of thisassay, when used to test SurePath(TM) specimens have beendetermined by [facility]. The modifications havenot been cleared or approved by the FDA. This assay hasbeen validated pursuant to the CLIA regulations and isused for clinical purposes.For additional information, please refer [email or web address](This link is being provided for information/educational purposes only.) Swab Cervix uteri structure / Unknown 11/28/2024 11:15 AM EST 11/28/2024 1:31 PM EST Narrative [facility] - 12/07/2024 12:09 PM EST Collection Date: [id number] by: MARTIN Navarro: Cervix Naa Ramírez [facility] CYTOLOGY ORDERABLES Edited Result - Final [facility] [address] [place] [address] [phone] * (ABNORMAL) Bacterial Vaginosis Panel (11/28/2024 11:15 [...] 11/28/2024 1:31 PM EST us Naa Ramírez [facility] MICROBIOLOGY - GENERAL ORD ERABLES Final Result [facility] [address] [place] [phone] * HPV DNA, Low/High Risk (11/28/2024 11:15 AM EST) HPV High Risk Negative Negative [facility] HPV Genotype 16 Negative Negative [facility] HPV Genotype 18 Negative Negative [facility] Comment:HPV testing performe d at [facility] (CLIA#[id number]), [address] [place] [address].Testing for HPV was performed using the Rasheed [...] 5 AM EST 11/28/2024 2:00 PM EST us Naa FLANAGAN LAB BLOOD ORDERABLES Final Res ult [facility] [address] [place] [address] [phone] * Pap Smear (11/28/2024 11:15 AM EST) Swab Cervix uteri structure / Unknown 11/28/2024 11:15 AM EST 11/28/2024 2:00 PM EST Narrative [facility] - 12/04/2024 10:17 AM EST ----- ------- Name: Lazaro Floyd ? Age/Sex: 39/F ? : 1985 Unit#: [id number] ?? Attend Dr: Naa Ramírez ?Re11/28/24 ?Status: DEP REF ? Location: [facility] ? Disch: ? ----- ------- SPEC : [id number] ? RECD: 11/28/24-1400 ? STATUS: ??SOUT ? REQ NUM: [id number] ? JYOTI: 11/28/24-1115 ? SUBM DR: Naa Ramírez INTERN PRODUCT MARKETING MANAGER ? ENTERED: ??11/28/24-1409 ?SP TYPE: Pap Smr [...] ------- ? END OF REPORT ? us Naacarlton Ramírez [facility] CYTOLOGY ORDERABLES Final Result Performing Organization Address [facility]/ZIP Co de Phone Number [facility] [address] [place] [address] [phone] * Hepatitis C Antibody with Reflex to HCV, RNA, Quantitative, Real-Time PCR (05/16/2024 1:28 PM EDT) Hepatitis C Antibody Nonreactive Nonreactive [facility] Comment:Antibodies to HCV no t detected; does not exclude early acuteHCV infection. Blood Venous blood specimen / Unknown 05/16/2024 1:28 PM EDT 05/16/2024 3:51 PM EDT Evelyne Keita [facility] BLOOD ORDERABLES Renuka l Result Performing Organization Address [facility]/ZIP Co de Phone Number [facility] [address] [place] [address] [phone] * HIV-1/2 Antigen and Antibodies, Fourth Generation, with Reflexes (05/16/2024 1:28 PM EDT) HIV AB/AG Nonreactive Nonreactive [facility] Comment:HIV-1 p24 Ag and/or HIV-1/HIV-2 Ab not detected.A test result that is nonreactive does not exclude thepossibility of exposure to or infection with HIV-1 and/orHIV-2. Nonreactive results in this assay for individualswith prior exposure to HIV-1 and/or HIV-2 may be due toantigen and antibody levels that are below the limit ofdetection of this assay.The [employer] HIV Ag/Ab Combo assay result andsupplemental assay results should be interpreted inconjunction with the patient's clinical presentation,history and other laboratory results. If the results areinconsistent with clinical evidence, additional testing issuggested to confirm the result. Blood Venous blood specimen / Unknown 05/16/2024 1:28 PM EDT 05/16/2024 3:51 PM EDT us Evelyne Keita [facility] BLOOD ORDERABLES Renuka del valle Result [facility] [address] [place] [address] [phone] from Last 3 Months or Most Recently Relevant to Health Maintenance Insurance HSN PARTIAL [facility] AD[place] Care Teams Bi Developer Relationship Specialty Start Date End Date Naa Ramírez FNP [address] [place] [address] PCP - General Family Medicine 08/08/24
--- OUTSIDE RECORDS SUMMARY | 2025-02-18 14:15 | XMS_ITS | Encounter Summary ---
Author Organization [employer] [facility] Address [address] [facility] 7t [place] [address] Care Team Providers Care Cook Relief Name Role Phone Naa Ramírez Primary Care Provider [phone] Encounter Details Date Type Department Care Team (Latest Contact Info) Description 01/15/2021 Abstract [facility] CONVERSIONS Dental, Provider, DDS Social History [...] on filedocumented in this encounter Care Teams Cook Relief Relationship Specialty Start Date End Date Naa Ramírez FNP [address] [place] [address] PCP - General Family Medicine 08/08/24 documented as of this encounter
--- OUTSIDE RECORDS SUMMARY | 2025-02-18 14:15 | XMS_ITS | Encounter Summary ---
Author Organization [employer] Address [address] [facility] [address] [place] [address] Care Team Providers Care Nocturnist Physician Name Role Phone Naa Ramírez Primary Care Provider [phone] Encounter Details Date Type Department Care Team ([facility] st Contact Info) Description 12/20/2022 Abstract [facility] ADULT DENTAL [address] [place] [address] Kamran Martinez, DAVONTE [address] [place] [address] Social History Tobacco Use Types Packs/Day Years [...] on filedocumented in this encounter Care Teams Nocturnist Physician Relationship Specialty Start Date End Date Naa Ramírez FNP [address] [place] [address] PCP - General Family Medicine 08/08/24 documented as of this encounter
--- OUTSIDE RECORDS SUMMARY | 2025-02-18 14:15 | XMS_ITS | Encounter Summary ---
Author Organization [employer] Address [address] [facility] [address] [place] [address] Care Team Providers Care Lvn Home Health Name Role Phone Naa Ramírez Primary Care Provider [phone] Encounter Details Date Type Department Care Team ([facility] st Contact Info) Description 02/14/2023 Abstract [facility] ADULT DENTAL [address] [place] [address] Kamran Martinez, DAVONTE [address] [place] [address] Social History Tobacco Use Types Packs/Day Years [...] on filedocumented in this encounter Care Teams Lvn Home Health Relationship Specialty Start Date End Date Naa Ramírez FNP [address] [place] [address] PCP - General Family Medicine 08/08/24 documented as of this encounter
--- OUTSIDE RECORDS SUMMARY | 2025-02-18 14:15 | XMS_ITS | Encounter Summary ---
Author Organization [employer] Address [address] [place] [address] Care Team Providers Care Landscape Photographer Name Role Phone Naa Ramírez SHOP HAND Primary Care Provider [phone] Encounter Details Date Type Department Care Team ([facility] st Contact Info) Description 05/17/2024 Orders Only [facility] MEDICINE [address] [place] [address] Evelyne Keita CNM [address] [place] [address] No history of hepatitis B vaccination (Primary [...] CNM LAB BLOOD ORDERABLES Renuka l Result [facility] [address] [place] [address] [phone] documented in this encounter Visit Diagnoses Diagnosis No history of hepatitis B vaccination- Primary documented in this encounter Care Teams Landscape Photographer Relationship Specialty Start Date End Date Naa Ramírez FNP [address] [place] [address] PCP - General Family Medicine 08/08/24 documented as of this encounter
== END 2025-02-18 12:19 | disposition home or self-care (01) ==
LOC: HO.MAMMO 12:18
PROVIDERS: PCP Nurse Practitioner Family; Visit Provider Surgery
DX: N60.91 Unspecified benign mammary dysplasia of right breast (principal)
CPT/HCPCS: 76642; 77062; 77066

== ENCOUNTER → 2025-02-18 12:30 | Outpatient (BNV) | payer OTHER, SELFPAY | PROVIDERS: PCP Nurse Practitioner Family; Visit Provider Internal Medicine | DX: R92.8 Other abnormal and inconclusive findings on diagnostic imaging of breast (principal) | CPT/HCPCS: 76642; 77062; 77066 ==

== ENCOUNTER 2025-03-05 10:01 | Outpatient (AMB) | payer OTHER, SELFPAY ==
--- NOTE | 2025-03-05 10:09 | A.OFFVIS_ITS ---
Vital Signs 03/05/25 10:25 Height 5 ft 1 in Weight 153 lb 4 oz BMI 29.0 BP 137/81 Blood Pressure Location Lt brachial Position Sitting Pulse 67 Intake Visit Reasons: 6 month breast exam Intake Note: Patient is seen in office for 6 month follow up visit, breast exam. Pt c/o: denies any concerns or changes MRI: 01/21/25 mm: 02/18/25 Oral Surgeon Required: No Home Manager: Home Manager Present Accompanied by: Self / Same As Patient Allergies No Known Allergies Allergy (Verified 03/05/25 10:24) Medication List - Last Reconciled 03/05/25 by Stu Marmolejo MD ibuprofen 600 mg PO Q8H PRN tamoxifen 20 mg PO DAILY HPI Comments Details: 39-year-old female patient previously diagnosed with atypical lobular hyperplasia of the right breast, placed on a high risk protocol. Her calculated Tyrer-Cuzick remaining lifetime risk of breast cancer was 36.3%. Patient was evaluated by Medical Oncology (Dr. Ott) and started on tamoxifen 20 mg p.o. daily. She developed increased pain, redness and swelling in the right breast one-month ago and subsequently started on doxycycline. Since this time her symptoms have markedly improved. She no longer has any redness, pain or discharge. She was completed the antibiotics as prescribed. Previous mammogram performed at [facility] on 03/31/2024 revealed no mammographic or sonographic evidence of malignancy in either breast. In the area of the right breast an area of thickening in the areola skin measuring 3.3 x 0.6 x 2.0 cm was inhomogeneously hypoechoic, nonvascular in the 3:30 position. She subsequently underwent an excision of the palpable abnormality on 08/22/2024 which revealed focal atypical lobular hyperplasia along with dense fibrosis, pseudoangiomatous stromal hyperplasia, and fibrocystic change. Breast MRI performed on 01/21/2025 revealed a left breast enhancing nodule for which six-month follow-up is recommended. Mammogram and ultrasound performed on 02/18/2025 revealed thickening in the right breast unchanged and no correlate to the MRI finding of the left breast. Six-month follow-up breast MRI is recommended. COUNT INCLUDES THE [facility] Medical History Atypical lobular hyperplasia (ALH) of right breast No pertinent past medical history Surgical History History of lumpectomy of both breasts (08/22/24) Tubal ligation status History of 2 sections Social History Alcohol intake: current Alcohol intake frequency: a few times a month Patient Tobacco Use Status: Never used Tobacco Female Reproductive History Menstrual Age of Menarche: 16 Review of Systems Const All systems reviewed & are unremarkable except as noted in HPI and below Physical Exam Vital Signs: Last Vital Signs Pulse 67 03/05/25 10:25 BP 137/81 03/05/25 10:25 BMI result Body Mass Index 29.0 Const General: no acute distress Chest Other: Left breast: No skin change, no nipple retraction, no nipple discharge, no palpable mass, no enlarged lymph nodes, well-healed incision in the upper outer quadrant. Right breast: No skin change, no nipple retraction, no nipple discharge, no palpable mass, no enlarged lymph nodes, well-healed incision Skin Other: Warm, dry, no rash Extrem Other: No edema Assessment & Plan Assessment & Plan (1) Atypical lobular hyperplasia (ALH) of right breast: Code(s): N60.91 - Unspecified benign mammary dysplasia of right breast Category: Medical (2) At high risk for breast cancer: Code(s): Z91.89 - Other specified personal risk factors, not elsewhere classified Category: Medical Plan 39-year-old female patient with a prior history of atypical ductal hyperplasia returning for a high risk breast examination. Examination today revealed no suspicious findings in either breast. Her most recent breast MRI of 01/21/2025 did reveal a an enhancing mass measuring 5 mm for which an ultrasound and mammogram correlate could not be found on 02/18/2025. Six-month follow-up breast MRI is recommended. This was reviewed with the patient and she expressed understanding. She will return in 6 months following the next breast MRI. Welcome to call sooner for any new concerns. Orders: Orders MR breast BI wo/w con 5 Months N60.91 - Unspecified benign mammary dysplasia of right breast, Z91.89 - Other specified personal risk factors, not elsewhere classified Coding Level of Care Code Est Pt Level 3 (31821) Complex EM visit Add On G2211 Diagnoses Atypical lobular hyperplasia (ALH) of right breast N60.91 At high risk for breast cancer Z91.89
[2025-03-05 10:25] VITALS: BP 137/81; PULSE 67; BMI 29.0
--- OUTSIDE RECORDS SUMMARY | 2025-03-05 11:21 | XMS_ITS | Encounter Summary ---
Author Organization [employer] Address [address] [facility] [address] [place] [address] Care Team Providers Care Supervisor Twisting Department Name Role Phone Naa Ramírez Primary Care Provider [phone] Encounter Details Date Type Department Care Team (Late Contact Info) Description 05/17/2024 Orders Only [facility] MED[facility] [address] [place] [phone] Evelyen Keita CNM [address] [place] [address] No history of hepatitis B vaccination (Primary [...] Department Care Team (Late Contact Info) Description 04/05/2025 3:00 PM EDT Office Visit [facility] [address] [place] [phone] Naa Ramírez FNP [address] [place] [address] documented as of this encounter Procedures Procedure Name Priority Date/Time Associated Diagnosis Comments HEPATITIS B SURFACE ANTIBODY, QUALITATIVE Routine 08/08/2024 11:03 AM EDT No history of hepatitis B vaccination documented in this encounter Results * Hepatitis B Surface Antibody, Qualitative (08/08/2024 11:03 AM EDT) ~Hepatitis B Surface Antibody REACTIVE Nonreactive [facility] Comment:REACTIVE: > 11.99 mI U/mL Blood Venous blood specimen / Unknown 08/08/2024 11:03 AM EDT 08/08/2024 1:43 PM EDT us Evelyne DONATO [facility] BLOOD ORDERABLES Renuka del valle Result [facility] [address] [place] [address] [phone] documented in this encounter Visit Diagnoses Diagnosis No history of hepatitis B vaccination- Primary documented in this encounter Care Teams Supervisor Twisting Department Relationship Specialty Start Date End Date Naa Ramírez FNP [address] [place] [address] PCP - General Family Medicine 08/08/24 documented as of this encounter
--- OUTSIDE RECORDS SUMMARY | 2025-03-05 11:21 | XMS_ITS | Encounter Summary ---
Author Organization [employer] Address [address] [facility] [address] [place] [address] Care Team Providers Care Cardiac Rn Name Role Phone Naa Ramírez Primary Care Provider [phone] Encounter Details Date Type Department Care Team ([facility] Contact Info) Description 02/14/2023 Abstract [facility] ADULT DENTAL [address] [place] [address] Kamran Martinez, DMD [address] [place] [address] Social History Tobacco Use Types Packs/Day Years [...] Upcoming Encounters Date Type Department Care Team ([facility] Contact Info) Description 04/05/2025 3:00 PM EDT Office Visit [facility] MED[facility]INE [address] [place] [address] Naa Ramírez FNP [address] [place] [address] documented as of this encounter Visit Diagnoses Not on filedocumented in this encounter Care Teams Cardiac Rn Relationship Specialty Start Date End Date Naa Ramírez FNP [address] [place] [phone] PCP - General Family Medicine 08/08/24 documented as of this encounter
--- OUTSIDE RECORDS SUMMARY | 2025-03-05 11:21 | XMS_ITS | Encounter Summary ---
Author Organization [employer] [facility] Address [address] [facility] [address] [place] [address] Care Team Providers Care Debeaker Name Role Phone Naa Ramírez Primary Care Provider [phone] Encounter Details Date Type Department Care Team (Latest Contact Info) Description 01/15/2021 Abstract [facility] CONVERSIONS Dental, Provider, DDS Social History [...] Care Team (Late st Contact Info) Description 04/05/2025 3:00 PM EDT Office Visit [facility] MEDIC[facility] [address] [place] [address] Naa Ramírez FNP [address] [place] [address] documented as of this encounter Visit Diagnoses Not on filedocumented in this encounter Care Teams Debeaker Relationship Specialty Start Date End Date Naa Ramírez FNP [address] [place] [address] PCP - General Family Medicine 08/08/24 documented as of this encounter
--- OUTSIDE RECORDS SUMMARY | 2025-03-05 11:21 | XMS_ITS | Encounter Summary ---
Author Organization [employer] Address [address] [facility] [address] [place] [address] Care Team Providers Care Principal Web Developer Name Role Phone Naa Ramírez Primary Care Provider [phone] Encounter Details Date Type Department Care Team ([facility] Contact Info) Description 12/20/2022 Abstract [facility] ADULT DENTAL [address] [place] [address] Kamran Martinez, DMD [address] [place] [address] Social History Tobacco Use Types Packs/Day Years [...] Upcoming Encounters Date Type Department Care Team ([facility] Contact Info) Description 04/05/2025 3:00 PM EDT Office Visit [facility] MEDICINE [address] [place] [address] Naa Ramírez FNP [address] [place] [address] documented as of this encounter Visit Diagnoses Not on filedocumented in this encounter Care Teams Principal Web Developer Relationship Specialty Start Date End Date Naa Ramírez FNP [address] [place] [address] [phone] PCP - General Family Medicine 08/08/24 documented as of this encounter
--- OUTSIDE RECORDS SUMMARY | 2025-03-05 11:21 | XMS_ITS | Clinical Summary ---
Author Organization [employer] Address [address] [facility] [address] [place] [address] Care Team Providers Care Rn Review Name Role Phone Naa Ramírez INTERNATIONAL TRADE ANALYST Primary Care Provider [phone] Allergies No known active allergies Medications minocycline [...] Encounters Date Type Department Care Team Description 02/19/2025 Telephone [facility] [address] [place] [address] Naa Ramírez FNP May Recall 01/27/2025 Refill [facility] [address], [place] [phone] Zoraida Leslie MD Hidradenitis suppurativa 01/21/2025 Orders Only [facility] External Provider, [facility] 12/10/2024 Telephone [facility] [address] [place] [address] Mague Pearce RN from Last 3 Months Immunizations Name Administration [...] Description 04/05/2025 3:00 PM EDT Office Visit [facility] [address] [place] [address] Naa Ramírez FNP [address] [place] [address] Health Maintenance Due Date Last Done Comments [...] 08/08/2024, 08/08/2024 Family Planning (PISQ) 08/08/2025 08/08/2024 Diagnostic Breast Imaging 08/20/20252024, 02/18/2025, 01/21/2025 Tobacco Screening 11/28/2025 11/28/2024 COVID-19 Vaccine ( - 2023-2 5 season) 2025 10/15/2021, 03/09/2021, 02/09/2021 Postponed from 07/08/2024 (Patient Refused) Cervical Cancer Screening 11/28/2029 HPV/Cotest 11/28/2029 11/28/2024 Pap Smear 11/28/2029 11/28/2024 DTaP/Tdap/Td Vaccines (2 - T [...] Name Priority Date/Time Associated Diagnosis Comments BI US BREAST LIMITED BILATERAL Routine 02/18/2025 1:00 PM EDT BI MAMMOGRAM DIAGNOSTIC TOMOSYNTHESIS BILATERAL Routine 02/18/2025 12:30 PM EDT BI MR BREAST W AND WO CONTRAST BILATERAL Routine 01/21/2025 1:34 PM EDT US PELVIS TRANSVAGINAL Routine 3:52 PM EST Pelvic pain HPV DNA, LOW/HIGH RISK Routine 11:15 AM EST PAP SMEAR Routine 11/28/2024 11:15 AM EST Routine cervical smear HEPATITIS C AB W/REFL TO HCV RNA, QN, PCR Routine 05/16/2024 1:28 PM EDT Encntr screen for infections w sexl mode of transmiss HIV 1/2 ANTIGEN/ANTIBODY, FOURTH GENERATION W/RFL Routine 05/16/2024 1:28 PM EDT Encntr screen for infections w sexl mode of transmiss from Last 3 Months or Most Recently Relevant to Health Maintenance Results * BI US Breast Limited Bilateral (02/18/2025 1:00 PM EDT) Anatomical Region Laterality Modality Breast Bilateral Ultrasound 02/18/2025 1:00 PM EDT Narrative 02/18/2025 3:07 PM EDT ? [facility] ? [address] ?[place] [address] ? Ultrasound Report ? Signed ? Patient: Everett,Areliz ?MR#: [id number] ?? 0923 ? : 1985 ?Acct:[id number] ? Age/Sex: 39 / F ?ADM Date: 04/14/25 ? Loc: HO.MAMMO ? Attending Dr: Stu Marmolejo MD ? Ordering Physician: Stu Marmolejo MD ?? Date of Service: 02/18/25 ?? Procedure(s): US breast BI limited mamm only ?? Accession Number(s): [id number] ? cc: Stu Marmolejo MD; Naa Ramírez INTERNATIONAL TRADE ANALYST ? EXAMINATION: ?? MM DIAGNOSTIC DIGITAL BREAST TOMOSYNTHESIS, BILATERAL ? CLINICAL INFORMATION: ? Second Look MRI directed ultrasound in the left breast. ?? Right breast palpable lump. ? COMPARISON: ?? Mammography: Comparison is made with relevant prior exams. ? TECHNIQUE: ?? Digital breast mammography with tomosynthesis is performed in both the ?? craniocaudal and mediolateral oblique views along with computer-aided ?? detection (CAD). ? FINDINGS: ?? There are scattered areas of fibroglandular density (ACR BI-RADS breast ?? composition Category b). ?? Right postsurgical changes are stable. ?? There are no significant masses, abnormal calcifications, or other ?? abnormalities. ? Targeted color Doppler ultrasound scanning in the left retroareolar ?? region demonstrates normal fibroglandular breast tissue. There is no ?? sonographic abnormality. ? Targeted color Doppler ultrasound scanning in the right breast upper ?? outer quadrant retroareolar region demonstrates an intradermal ?? hypoechoic area of skin thickening/scar/sebaceous cyst. ? Results are provided to the patient at time of visit by the ?? technologist. ? US/US breast BI limited mamm only ?? IMPRESSION: ?? Left: ?? No mammographic or sonographic abnormality to account for the left ?? enhancing 5 mm mass on MRI. Recommend six-month follow-up MRI for ?? further evaluation of stability. ? Right: ?? Area of skin thickening in the area of the palpable lump in the upper ?? outer quadrant retroareolar region this could represent area of scar ?? tissue/sebaceous cyst. Recommend clinical evaluation and follow-up for ?? intradermal thickening. ? ASSESSMENT: ? BI-RADS BI-RADS 2 - Benign Findings ? RECOMMENDATION: ?? 1 year F/U ?? 6 month follow-up breast MRI. ?? Clinical evaluation and follow-up. Yearly screening mammography. ?? This patient's information was entered into a reminder system with a ?? target due date for their next mammogram. ? Electronically signed by: ??Fatimah Ayon DO ??02/18/2025 03:04 PM EDT ? Dictated By: ?Fatimah Ayon DO ? Signed By: ?<Electronically signed by Fatimah Ayon, DO in OV> ? 02/18/25 1504 ? DD/ 1300 ? TD/TT: 02/18/25 1337 ? Music Grapher: ? Procedure Note Donotuseinterpreter, Image - 02/18/2025 [facility] [address] [place] [address] Ultrasound Report Signed Patient: Rasta Floyd#: [id number] 0923 : 1985Acct:[id number] Age/Sex: 39 / FADM Date: 02/18/25 Loc: SHAHEEN Attending Dr: Stu Marmolejo MD Ordering Physician: Stu Marmolejo MD Date of Service: 02/18/25 Procedure(s): US breast BI limited mamm only Accession Number(s): [id number] cc: Stu Marmolejo MD; Naa Ramírez INTERNATIONAL TRADE ANALYST EXAMINATION: MM DIAGNOSTIC DIGITAL BREAST TOMOSYNTHESIS, BILATERAL CLINICAL INFORMATION: Second Look MRI directed ultrasound in the left breast. Right breast palpable lump. COMPARISON: Mammography: Comparison is made with relevant prior exams. TECHNIQUE: Digital breast mammography with tomosynthesis is performed in both the craniocaudal and mediolateral oblique views along with computer-aided detection (CAD). FINDINGS: There are scattered areas of fibroglandular density (ACR BI-RADS breast composition Category b). Right postsurgical changes are stable. There are no significant masses, abnormal calcifications, or other abnormalities. Targeted color Doppler ultrasound scanning in the left retroareolar region demonstrates normal fibroglandular breast tissue. There is no sonographic abnormality. Targeted color Doppler ultrasound scanning in the right breast upper outer quadrant retroareolar region demonstrates an intradermal hypoechoic area of skin thickening/scar/sebaceous cyst. Results are provided to the patient at time of visit by the technologist. US/US breast BI limited mamm only IMPRESSION: Left: No mammographic or sonographic abnormality to account for the left enhancing 5 mm mass on MRI. Recommend six-month follow-up MRI for further evaluation of stability. Right: Area of skin thickening in the area of the palpable lump in the upper outer quadrant retroareolar region this could represent area of scar tissue/sebaceous cyst. Recommend clinical evaluation and follow-up for intradermal thickening. ASSESSMENT: BI-RADS BI-RADS 2 - Benign Findings RECOMMENDATION: 1 year F/U 6 month follow-up breast MRI. Clinical evaluation and follow-up. Yearly screening mammography. This patient's information was entered into a reminder system with a target due date for their next mammogram. Electronically signed by: Fatimah Ayon DO 02/18/2025 03:04 PM EDT Dictated By: Fatimah Ayon DO Signed By: <Electronically signed by Fatimah Ayon DO in OV> 02/18/25 1504 DD/ 1300 TD/TT: 02/18/25 1337 Music Grapher: [facility] External Provider IMG US PROCEDURES Edited Result - Final * BI Mammogram Diagnostic Tomosynthesis Bilateral (02/18/2025 12:30 PM EDT) Anatomical Region Laterality Modality Breast Bilateral Mammography 02/18/2025 12:3 0 PM EDT Narrative 02/18/2025 3:07 PM EDT ? [facility] ? [address] ?[place] [address] ?[phone] ? Mammography Report ? Signed ? Patient: Everett,Lazaro ?MR#: [id number] ?? 0923 ? : 1985 ?Acct:[id number] ? Age/Sex: 39 / F ?ADM Date: 04/14/25 ? Loc: HO.MAMMO ? Attending Dr: Stu Marmolejo MD ? Ordering Physician: Stu Marmolejo MD ?Results: 2Beni ?? gn Findings ? Date of Service: 02/18/25 ?Follow Up: 1 Year From Orig ?? inal Mammogram ? Procedure(s): MM tomosynthesis diagnostic BI ?? Accession Number(s): [id number] ? cc: Stu Marmolejo MD; Naa Ramírez ? EXAMINATION: ?? MM DIAGNOSTIC DIGITAL BREAST TOMOSYNTHESIS, BILATERAL ? CLINICAL INFORMATION: ? Second Look MRI directed ultrasound in the left breast. ?? Right breast palpable lump. ? COMPARISON: ?? Mammography: Comparison is made with relevant prior exams. ? TECHNIQUE: ?? Digital breast mammography with tomosynthesis is performed in both the ?? craniocaudal and mediolateral oblique views along with computer-aided ?? detection (CAD). ? FINDINGS: ?? There are scattered areas of fibroglandular density (ACR BI-RADS breast ?? composition Category b). ?? Right postsurgical changes are stable. ?? There are no significant masses, abnormal calcifications, or other ?? abnormalities. ? Targeted color Doppler ultrasound scanning in the left retroareolar ?? region demonstrates normal fibroglandular breast tissue. There is no ?? sonographic abnormality. ? Targeted color Doppler ultrasound scanning in the right breast upper ?? outer quadrant retroareolar region demonstrates an intradermal ?? hypoechoic area of skin thickening/scar/sebaceous cyst. ? Results are provided to the patient at time of visit by the ?? technologist. ? MM/MM tomosynthesis diagnostic BI ?? IMPRESSION: ?? Left: ?? No mammographic or sonographic abnormality to account for the left ?? enhancing 5 mm mass on MRI. Recommend six-month follow-up MRI for ?? further evaluation of stability. ? Right: ?? Area of skin thickening in the area of the palpable lump in the upper ?? outer quadrant retroareolar region this could represent area of scar ?? tissue/sebaceous cyst. Recommend clinical evaluation and follow-up for ?? intradermal thickening. ? ASSESSMENT: ? BI-RADS BI-RADS 2 - Benign Findings ? RECOMMENDATION: ?? 1 year F/U ?? 6 month follow-up breast MRI. ?? Clinical evaluation and follow-up. Yearly screening mammography. ?? This patient's information was entered into a reminder system with a ?? target due date for their next mammogram. ? Electronically signed by: ??Fatimah Ayon DO ??02/18/2025 03:04 PM EDT ? Dictated By: ?Fatimah Ayon DO ? Signed By: ?<Electronically signed by Fatimah Ayon, DO in OV> ? 02/18/25 1504 ? DD/ 1230 ? TD/TT: 02/18/25 1255 ? Music Grapher: ? Procedure Note Donpaulter, Image - 02/18/2025 [facility] [address] [place] [address] Mammography Report Signed Patient: Rasta Floyd#: [id number] 0923 : 1985Acct:[id number] Age/Sex: 39 / FADM Date: 02/18/25 Loc: SHAHEEN Attending Dr: Stu Marmolejo MD Ordering Physician: Stu Marmolejo MDResults: 2Beni gn Findings Date of Service: 02/18/25Follow Up: 1 Year From Orig inal Mammogram Procedure(s): MM tomosynthesis diagnostic BI Accession Number(s): [id number] cc: Stu Marmolejo MD; Naa Ramírez INTERNATIONAL TRADE ANALYST EXAMINATION: MM DIAGNOSTIC DIGITAL BREAST TOMOSYNTHESIS, BILATERAL CLINICAL INFORMATION: Second Look MRI directed ultrasound in the left breast. Right breast palpable lump. COMPARISON: Mammography: Comparison is made with relevant prior exams. TECHNIQUE: Digital breast mammography with tomosynthesis is performed in both the craniocaudal and mediolateral oblique views along with computer-aided detection (CAD). FINDINGS: There are scattered areas of fibroglandular density (ACR BI-RADS breast composition Category b). Right postsurgical changes are stable. There are no significant masses, abnormal calcifications, or other abnormalities. Targeted color Doppler ultrasound scanning in the left retroareolar region demonstrates normal fibroglandular breast tissue. There is no sonographic abnormality. Targeted color Doppler ultrasound scanning in the right breast upper outer quadrant retroareolar region demonstrates an intradermal hypoechoic area of skin thickening/scar/sebaceous cyst. Results are provided to the patient at time of visit by the technologist. MM/MM tomosynthesis diagnostic BI IMPRESSION: Left: No mammographic or sonographic abnormality to account for the left enhancing 5 mm mass on MRI. Recommend six-month follow-up MRI for further evaluation of stability. Right: Area of skin thickening in the area of the palpable lump in the upper outer quadrant retroareolar region this could represent area of scar tissue/sebaceous cyst. Recommend clinical evaluation and follow-up for intradermal thickening. ASSESSMENT: BI-RADS BI-RADS 2 - Benign Findings RECOMMENDATION: 1 year F/U 6 month follow-up breast MRI. Clinical evaluation and follow-up. Yearly screening mammography. This patient's information was entered into a reminder system with a target due date for their next mammogram. Electronically signed by: Fatimah Ayon DO 02/18/2025 03:04 PM EDT Dictated By: Fatimah Ayon DO Signed By: <Electronically signed by Fatimah Ayon DO in OV> 02/18/25 1504 DD/ 1230 TD/TT: 02/18/25 1255 Music Grapher: [facility] External Provider IMG BI PROCEDURES Edited Result - Final * BI MR Breast w and w/o Contrast Bilateral (01/21/2025 1:34 PM EDT) Anatomical Region Laterality Modality Breast Bilateral Magnetic Resonan ce 01/21/2025 1:34 PM EDT Narrative 01/25/2025 12:07 PM EDT ? [place] [facility] ?[address] ?[place] [address] ? Magnetic Resonance Report ? Signed ? Patient: Everett,Areliz ?MR#: [id number] ?? 0923 ? : 1985 ?Acct:[id number] ? Age/Sex: 39 / F ?ADM Date: 01/21/25 ? Loc: HO.MRI ? Attending Dr: Stu Marmolejo MD ? Ordering Physician: Stu Marmolejo MD ?? Date of Service: 01/21/25 ?? Procedure(s): MR breast BI wo/w con ?? Accession Number(s): [id number] ? cc: Stu Marmolejo MD; Naa Ramírez INTERNATIONAL TRADE ANALYST ? EXAMINATION: ?? MR BREAST WITHOUT AND [...] DD/ 1334 ? TD/TT: 01/21/25 1445 ? Music Grapher: ? Procedure Note Donpaulter, Image - 01/25/2025 [place] [address] Magnetic Resonance Report Signed Patient: Rasta Floyd#: [id number] 0923 : 1985Acct:[id number] Age/Sex: 39 / FADM Date: 01/21/25 Loc: .MRI Attending Dr: Stu Marmolejo MD Ordering Physician: Stu Marmolejo MD Date of Service: 01/21/25 Procedure(s): MR breast BI wo/w con Accession Number(s): [id number] cc: Stu Marmolejo MD; Naa Ramírez INTERNATIONAL TRADE ANALYST EXAMINATION: MR BREAST WITHOUT AND WITH CONTRAST, [...] 01/25/25 1205 DD/ 1334 TD/TT: 01/21/25 1445 Music Grapher: [facility] External Provider IMG MRI PROCEDURES Final Result * US Pelvis Transvaginal (12/06/2024 3:52 PM EST) Anatomical Region Laterality Modality Pelvis Ultrasound 12/06/2024 3:52 PM EST Narrative 12/07/2024 7:58 AM EST ? [facility] ?[address] ?[place] [address] ? Ultrasound Report ? Signed ? Patient: Everett,Arelinola ?MR#: [id number] ?? 0923 ? : 1985 ?Acct:[id number] ? Age/Sex: 39 / F ?ADM Date: 01/30/25 ? Loc: HO.US ? Attending Dr: Naa FLANAGAN ? Ordering Physician: Naa Ramírez ?? Date of Service: 12/06/24 ?? Procedure(s): US pelvic and transvaginal ?? Accession Number(s): [id number] ? cc: Naa Ramírez ? EXAMINATION: ? [...] Signed By: ?<Electronically signed by James S MD Marquita in OV> ?12/07/24 0755 ? DD/ 1552 ? TD/TT: 12/06/24 1603 ? Music Grapher: MSM ? Procedure Note Ruma, Image - 12/07/[address] [place] [address] Ultrasound Report Signed Patient: Rasta Floyd#: [id number] 0923 : 1985Acct:[id number] Age/Sex: 39 / FADM Date: 12/06/24 Loc: HO.US Attending Dr: Naa FLANAGAN Ordering Physician: Naa Ramírez Date of Service: 12/06/24 Procedure(s): US pelvic and transvaginal Accession Number(s): [id number] cc: Naa Ramírez EXAMINATION: US PELVIS CLINICAL [...] Juárez MD in OV> 12/07/24 0755 DD/ 1553 TD/TT: 12/06/24 1600 Music Grapher: [facility] us Naa FLANAGAN IMG US PROCEDURES Final Result * HPV DNA, Low/High Risk (11/28/2024 11:15 AM EST) HPV High Risk Negative Negative [facility] HPV Genotype 16 Negative Negative [facility] HPV Genotype 18 Negative Negative [facility] Comment:HPV testing performe d at [facility] (CLIA#[id number]), [address] [place] [address].Testing for HPV was performed using the [employer]system. The presence of HPV in the female [...] EST 11/28/2024 2:00 PM EST us Naa GONZALEZP LAB BLOOD ORDERABLES Final Res ult [facility] [address] [place] [phone] * Pap Smear (11/28/2024 11:15 AM EST) Swab Cervix uteri structure / Unknown 11/28/2024 11:15 AM EST 11/28/2024 2:00 PM EST Narrative [facility] - 12/04/2024 10:17 AM EST ----- ------- Name: Lazaro Floyd ? Age/Sex: 39/F ? : 1985 Unit#: [id number] ?? Attend Dr: Naa Ramírez INTERNATIONAL TRADE ANALYST ?Re11/28/24 ?Status: DEP REF ? Location: HO.HHCLNP ? Disch: ? ----- ------- SPEC : [id number] ? RECD: 11/28/24-1400 ? STATUS: ??SOUT ? REQ NUM: [id number] ? JYOTI: 11/28/24-1115 ? SUBM DR: Naa Ramírez INTERNATIONAL TRADE ANALYST ? ENTERED: ??11/28/24-7599 ?SP TYPE: Pap Smr ?OTHR DR: ? [...] END OF REPORT ? us Naa Ramírez [facility] LAB CYTOLOGY ORDERABLES Final Result [facility] [address] [place] [phone] * Hepatitis C Antibody with Reflex to HCV, RNA, Quantitative, Real-Time PCR (05/16/2024 1:28 PM EDT) Hepatitis C Antibody Nonreactive Nonreactive [facility] Comment:Antibodies to HCV no t detected; does not exclude early acuteHCV infection. Blood Venous blood specimen / Unknown 05/16/2024 1:28 PM EDT 05/16/2024 3:51 PM EDT [facility] Renuka l Result Performing Organization Address [facility] Co de Phone Number [facility] [address] [place] [phone] * HIV-1/2 Antigen and Antibodies, Fourth Generation, with Reflexes (05/16/2024 1:28 PM EDT) [facility] HIV AB/AG Nonreactive Nonreactive [facility] Comment:HIV-1 p24 Ag and/or HIV-1/HIV-2 Ab not detected.A test result that is nonreactive does not exclude thepossibility of exposure to or infection with HIV-1 and/orHIV-2. Nonreactive results in this assay for individualswith prior exposure to HIV-1 and/or HIV-2 may be due toantigen and antibody levels that are below the limit ofdetection of this assay.The [employer] HIV Ag/Ab Combo assay result andsupplemental assay results should be interpreted inconjunction with the patient's clinical presentation,history and other laboratory results. If the results areinconsistent with clinical evidence, additional testing issuggested to confirm the result. Blood Venous blood specimen / Unknown 05/16/2024 1:28 PM EDT 05/16/2024 3:51 PM EDT Evelyne Keita [facility] LAB BLOOD ORDERABLES Renuka l Result Performing Organization Address [facility] Co de Phone Number [facility] [address] [place] [phone] from Last 3 Months or Most Recently Relevant to Health Maintenance Insurance [facility] [place] Care Teams Rn Review Relationship Specialty Start Date End Date Naa Ramírez FNP [address] [place] [address] PCP - General Family Medicine 08/08/24
== END 2025-03-05 10:41 | disposition home or self-care (01) ==
LOC: HO.HGS 10:02
PROVIDERS: PCP Student in an Organized Health Care Education/Training Program; Visit Provider Surgery
DX: N60.91 Unspecified benign mammary dysplasia of right breast (principal); Z91.89 Other specified personal risk factors, not elsewhere classified
CPT/HCPCS: 99213; G2211

== ENCOUNTER → 2025-03-05 10:01 | Outpatient (BNVA) | payer OTHER, SELFPAY | PROVIDERS: PCP Student in an Organized Health Care Education/Training Program; Visit Provider Surgery | DX: N60.91 Unspecified benign mammary dysplasia of right breast (principal); Z91.89 Other specified personal risk factors, not elsewhere classified | CPT/HCPCS: 99212 ==

== ENCOUNTER 2025-04-26 09:19 | Outpatient (AMB) | payer OTHER, SELFPAY ==
--- NOTE | 2025-04-26 09:27 | A.OFFVIS_ITS ---
Vital Signs 3 04/26/25 09:36 Height 5 ft 1 in Weight 154 lb BMI 29.1 BP 123/72 Blood Pressure Location Lt brachial Position Sitting Pulse 73 Intake Visit Reasons: reducible bulge lower right rib cage Intake Note: Patient is seen in office for evaluation of a reducible bulge lower right rib cage. 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 Her calculated Tyrer-Cuzick remaining lifetime risk of breast cancer was 36.3%. Patient was evaluated by Medical Oncology (Dr. Ott) and started on tamoxifen 20 mg p.o. daily. She developed increased pain, redness and swelling in the right breast one-month ago and subsequently started on doxycycline. Since this time her symptoms have markedly improved. She no longer has any redness, pain or discharge. She was completed the antibiotics as prescribed. Previous mammogram performed at [facility] on 03/31/2024 revealed no mammographic or sonographic evidence of malignancy in either breast. In the area of the right breast an area of thickening in the areola skin measuring 3.3 x 0.6 x 2.0 cm was inhomogeneously hypoechoic, nonvascular in the 3:30 position. She subsequently underwent an excision of the palpable abnormality on 08/22/2024 which revealed focal atypical lobular hyperplasia along with dense fibrosis, pseudoangiomatous stromal hyperplasia, and fibrocystic change. Breast MRI performed on 01/21/2025 revealed a left breast enhancing nodule for which six-month follow-up is recommended. Mammogram and ultrasound performed on 02/18/2025 revealed thickening in the right breast unchanged and no correlate to the MRI finding of the left breast. Six-month follow-up breast MRI is recommended. She presents today with a soft tissue mass located in the right upper quadrant abdomen which she feels has been present for several years. The lump seems to increase in size with coughing and straining but does reduce with light pressure. She reports some pain associated with the lump when pressure is applied. She feels she has a hernia at this location. She denies any previous surgery in the right upper quadrant. [facility] Medical History Atypical lobular hyperplasia (ALH) of right breast No pertinent past medical history Surgical History History of lumpectomy of both breasts (08/22/24) Tubal ligation status History of 2 sections Social History Alcohol intake: current Alcohol intake frequency: a few times a month Patient Tobacco Use Status: Never used Tobacco Female Reproductive History Menstrual Age of Menarche: 16 Review of Systems Const All systems reviewed & are unremarkable except as noted in HPI and below Physical Exam Vital Signs: Last Vital Signs Pulse 73 04/26/25 09:36 BP 123/72 04/26/25 09:36 BMI result Body Mass Index 29.1 Const General: healthy appearing Nutritional Appearance: well nourished Orientation/consciousness: oriented to time Resp Effort & Inspection: normal respiratory effort GI Other: Soft tissue mass located at the midclavicular line at the lower costal margin measuring approximately 5 cm in diameter, mobile within the subcutaneous tissue. The lesion seems to extend above the ribs making a hernia less likely. Findings appear more consistent with a lipoma in the subcutaneous tissue. There is tenderness to palpation but no overlying skin changes are appreciated to indicate an infection. Abdomen image: 2 1. Site of palpable soft tissue mass right upper quadrant midclavicular line Neuro General: oriented to time Extrem General: Yes no clubbing, cyanosis or edema Assessment & Plan Assessment & Plan (1) Lump in upper inner quadrant of right breast: Code(s): N63.12 - Unspecified lump in the right breast, upper inner quadrant Category: Medical (2) Abdominal mass, right upper quadrant: Code(s): R19.01 - Right upper quadrant abdominal swelling, mass and lump Category: Medical Plan 40-year-old female patient with a prior history of atypical ductal hyperplasia, now presenting with a soft tissue mass in the right upper quadrant abdomen which is causing some discomfort. Findings on examination appear more consistent with a lipoma than hernia. I recommended further evaluation with an ultrasound. She will return following the study to review the results and discuss treatment options as necessary. She expressed understanding and agrees with the plan. Orders: Orders 2 US abdomen limited Today R19.01 - Right upper quadrant abdominal swelling, mass and lump Coding Level of Care Code Est Pt Level 3 (80245) Diagnoses Lump in upper inner quadrant of right breast N63.12 Abdominal mass, right upper quadrant R19.01
[2025-04-26 09:36] VITALS: BP 123/72; PULSE 73; BMI 29.1
--- OUTSIDE RECORDS SUMMARY | 2025-04-26 09:38 | XMS_ITS | Clinical Summary ---
Author Organization [employer] Address [address] [facility] [facility] [address] [place] [address] Care Team Providers Care Associate Professor Of Biostatistics Name Role Phone Naa Ramírez COMBINATION PRESSER Primary Care Provider [phone] Allergies No known active allergies Medications * This document contains information received from the source organization and may not represent a complete record from that organization. minocycline 100 MG capsuleIndicatio ns:Hidradenitis suppurativa Take 1 capsule (100 mg) by mouth 2 times daily. 180 capsule 4 Active spironolactone (Aldactone) 100 MG tabletIndication s:Hidradenitis suppurativa Take 1 tablet (100 mg) by mouth Once per day. 90 tablet 2 4 Active tamoxifen (Nolvadex) 20 MG chemo tablet Take 1 tablet by mouth Once per day. 4 Active BP Wash 10 % external washIndications: Hidradenitis suppurativa APPLY TOPICALLY TO AFFECTED AREA(S) ONCE DAILY 227 g 1 5 Active hydrOXYzine pamoate (Vistaril) 25 MG capsuleIndicatio ns:Anxiety and depression Take 1 capsule (25 mg) by mouth every 6 (six) hours if needed for anxiety for up to 10 days. 30 capsule 5 Active Blood Pressure kitIndications:E levated blood pressure reading 1 Units 2 times daily. 1 kit 5 Active doxycycline (Vibra-Tabs) 100 MG tablet take 1 tablet by mouth twice daily until finished 5 Active amoxicillin (Amoxil) 500 MG capsule Take 1 capsule (500 mg) by mouth every 8 (eight) hours for 7 days. 21 capsule 5 05/01/20 25 Active chlorhexidine (Peridex) 0.12 % solution Use 15 mL in the mouth or throat if needed in the morning, at noon, and at bedtime (PROPHYLAXIS) for up to 5 days. 110 mL 5 04/29/20 25 Active ibuprofen 800 MG tablet Take 1 tablet (800 mg) by mouth if needed in the morning, at noon, and at bedtime for mild pain or moderate pain for up to 5 days. 15 tablet 5 04/29/20 25 Active Active Problems Problem Noted Date Diagnosed Date Abdominal wall bulge 04/06/2025 Anxiety and depression 04/06/2025 Elevated blood pressure reading 04/06/2025 Routine cervical smear 12/02/2024 Assessment & Plan [...] if symptoms worsens Preop examination 08/08/2024 Encounters * This document contains information received from the source organization and may not represent a complete record from that organization. Date Type Department Care Team Description 04/24/2025 10:00 AM EDT Office Visit [facility] ADULT DENTAL [address] [place] [phone] Iron Jimenez DMD 04/19/2025 Telephone [facility] MEDICINE [address] [place] [address] Naa Ramírez FNP PATIENT SATISFACTION SURVEY 04/08/2025 Telephone [facility] MEDICINE [address] [place] [address] Delfina Juarez RN 04/05/2025 3:00 PM EDT Office Visit [facility] MEDICINE [address] [place] [phone] Naa Ramírez FNP Anxiety and depression (Primary Dx); Reducible bulge of abdominal wall; Elevated blood pressure reading; Abnormal breast exam 04/05/2025 Travel 04/04/2025 Travel 04/04/2025 Telephone [facility] [address] [place] [address] Oni Rodriguez [place] [employer] 03/28/2025 Patient Outreach [facility] CH[facility] MED & PEDS [address] [place], [place] [phone] Naa Ramírez FNP Pre-visit Planning (SDOH negative, Tobacco screening negative.) 02/19/2025 Telephone [facility] [address] [place] [address] Naa Ramírez FNP May Recall 01/27/2025 Refill [facility] [address] [place] [address] Zoraida Leslie MD Hidradenitis suppurativa from Last 3 Months Immunizations Immunization Administration Dates Next Due Influenza, seasonal, injectable, preservative fr ee 08/08/2024 Tdap 08/08/2024 Family History Medical History Relation Name Comments Diabetes Father Relation Name Status Comments Father Social History Tobacco Use Types Packs/Day Years Used Date Smoking Tobacco: Never Passive Smoke Exposure: Never Smokeless Tobacco: Never Tobacco Cessation:Counseling Given: Not Answered Alcohol Use Standard Drinks/Week Comments Not Currently 0 (1 standard drink = 0.6 oz pure alcohol) Drinks a bottleof medium size vodka every weekend Depression Answer Date Recorded Patient Health Questionnaire-9 Score 15 04/05/2025 Patient Health Questionnaire-9 Score 15 04/05/2025 Last PHQ-9: Questionnaire Data Not on file 0 04/05/2025 Housing Stability Answer Date Recorded What is [...] the past 12 months, has t he [employer], gas, oil or water company threatened to shut off services in your home? No 07/27/2024 Depression Answer Date Recorded Patient Health Questionnaire-2 Score 4 04/05/2025 Internet Access Answer Date Recorded Internet Access [...] Sign Reading Time Taken Comments Blood Pressure 134/80 04/24/2025 10:04 AM EDT Pulse 96 04/05/2025 2:58 PM EDT Temperature 37.1 C (98.8 F) 04/05/2025 2:58 PM EDT Respiratory Rate 16 04/05/2025 2:58 PM EDT Oxygen Saturation 99% 11/28/2024 10:09 AM EST Inhaled Oxygen Concentration - - Weight 72.6 kg (160 lb 2 oz) 04/05/2025 2:58 PM EDT Height 154.9 cm (5' 1 ) 04/05/2025 2:58 PM EDT Body Mass Index 30.26 04/05/2025 2:58 PM EDT Plan of Treatment Upcoming Encounters Date Type Department Care Team (Late st Contact Info) Description 06/05/2025 2:00 PM EDT Office Visit [facility] ADULT DENTAL [address] [place] [address] Liz Power DDS [address], [place] [phone] Health Maintenance Due Date Last Done Comments Dental Oral Exam 1985 Dental Prophylaxis 1985 Dental X-Ray: Full Mouth 1985 Hepatitis A Vaccines (1 of 2 - Risk 2-dose series) 2004 Hepatitis B Vaccines (1 of 3 - 19+ 3-dose series) 2004 Alcohol/Substance Use Screening 08/08/2025 08/08/2024 Family Planning (PISQ) 08/08/2025 08/08/2024 Diagnostic Breast Imaging 08/20/20252024, 02/18/2025, 01/21/2025 Depression Monitoring 10/06/2025 04/05/2025 , 04/05/2025 COVID-19 Vaccine (2023-2 5 season) 2025 10/15/2021, 03/09/2021, 02/09/2021 Postponed from 07/08/2024 (Patient Refused) SDOH Screening 03/28/2026 03/28/2025 Disability Screening 04/05/2026 04/05/2025 Tobacco Screening 04/24/2026 04/24/2025 Dental X-Ray: Bitewings 04/25/2026 04/24/2025 Cervical Cancer Screening 11/28/2029 HPV/Cotest 11/28/2029 11/28/2024 [...] patient's age to complete this topic Meningococcal B Vaccine Aged Out No l onger eligible based on patient's age to complete this topic Meningococcal Vaccine Aged Out No juan maggie eligible based on patient's age to complete this topic Pneumococcal Vaccine: Pediatrics (0 to 5 Years) and At-Risk Patients (6 to 49) Years Aged Out No longer eligible b ased on patient's age to complete this topic RSV under 20 months Aged Out No longe r eligible based on patient's age to complete this topic Rotavirus Vaccines Aged Out No longer eligible based on patient's age to complete this topic Procedures Procedure Name Priority Date/Time Associated Diagnosis Comments CASE PRESENTATION, DETAILED AND EXTENSIVE TREATMENT PLANNING Routine 04/24/2025 10:00 AM EDT BITEWING - SINGLE RADIOGRAPHIC IMAGE Routine 04/24/2025 10:00 AM EDT INTRAORAL - PERIAPICAL FIRST RADIOGRAPHIC IMAGE Routine 04/24/2025 10:00 AM EDT PALLIATIVE (EMERGENCY) TREATMENT OF DENTAL PAIN - MINOR PROCEDURE Routine 04/24/2025 10:00 AM EDT BI US BREAST LIMITED BILATERAL Routine 02/18/2025 1:00 PM EDT BI MAMMOGRAM DIAGNOSTIC TOMOSYNTHESIS BILATERAL Routine 02/18/2025 12:30 PM EDT HPV DNA, LOW/HIGH RISK Routine 11:15 AM [...] PM EDT Narrative 02/18/2025 3:07 PM EDT [facility] [address] [place] [address] Dr. [place], [place] [address] Ultrasound Report Signed Patient: Lazaro Floyd MR#: [id number] 0923 : 1985 Acct:[id number] Age/Sex: 39 / F ADM Date: 02/18/25 Loc: HO.MAMMO Attending Dr: Stu Marmolejo MD Ordering Physician: Stu Marmolejo MD Date of Service: 02/18/25 Procedure(s): US breast BI limited mamm only Accession Number(s): [id number] cc: Stu Marmolejo MD; Naa Ramírez COMBINATION PRESSER EXAMINATION: MM DIAGNOSTIC DIGITAL BREAST TOMOSYNTHESIS, BILATERAL [...] Fatimah Ayon DO 02/18/2025 03:04 PM EDT RP Dictated By: Fatimah Ayon DO Signed By: <Electronically signed by Fatimah Ayon DO in OV> 02/18/25 1504 DD/ 1300 TD/TT: 02/18/25 1337 Utilization Review Specialist: Procedure Note Donotuseinterpreter, Image - 02/18/2025 Michelle [facility] [address] [place], [place] [address] Ultrasound Report Signed Patient: Lazaro FloydMR#: [id number] 0923 : 1985Acct:[id number] Age/Sex: 39 / FADM Date: 02/18/25 Loc: ZOLTANO Attending Dr: Stu Marmolejo MD Ordering Physician: Stu Marmolejo MD Date of Service: 02/18/25 Procedure(s): US breast BI limited mamm only Accession Number(s): [id number] cc: Stu Marmolejo MD; Naa Ramírez COMBINATION PRESSER EXAMINATION: MM DIAGNOSTIC DIGITAL BREAST TOMOSYNTHESIS, BILATERAL [...] 02/18/25 1504 DD/ 1300 TD/TT: 02/18/25 1337 Utilization Review Specialist: [facility] External Provider IMG US PROCEDURES Edited Result - Final * BI Mammogram Diagnostic Tomosynthesis Bilateral (02/18/2025 12:30 PM EDT) Anatomical Region Laterality Modality Breast Bilateral Mammography 02/18/2025 12:3 0 PM EDT Narrative 02/18/2025 3:07 PM EDT [address] [place] [address] Mammography Report Signed Patient: Lazaro Floyd MR#: [id number] 0923 : 1985 Acct:[id number] Age/Sex: 39 / F ADM Date: 02/18/25 Loc: SHAHEEN Attending Dr: Stu Marmolejo MD Ordering Physician: Stu Marmolejo MD Results: 2Beni gn Findings Date of Service: 02/18/25 Follow Up: 1 Year From Orig ina Mammogram Procedure(s): MM tomosynthesis diagnostic BI Accession Number(s): [id number] cc: Stu Marmolejo MD; Naa Ramírez COMBINATION PRESSER EXAMINATION: MM DIAGNOSTIC DIGITAL BREAST TOMOSYNTHESIS, BILATERAL [...] 02/18/25 1504 DD/ 1230 TD/TT: 02/18/25 1255 Utilization Review Specialist: Procedure Note Donotuseinterpreter, Image - 02/18/2025 Michelle [facility] [address] [place], [place] [address] Mammography Report Signed Patient: Rasta Floyd#: [id number] 0923 : 1985Acct:[id number] Age/Sex: 39 / FADM Date: 02/18/25 Loc: HO.MAMMO Attending Dr: Stu Marmolejo MD Ordering Physician: Stu Marmolejo MDResults: 2Beni gn Findings Date of Service: 02/18/25Follow Up: 1 Year From Orig inal Mammogram Procedure(s): MM tomosynthesis diagnostic BI Accession Number(s): [id number] cc: Stu Marmolejo MD; Naa Ramírez COMBINATION PRESSER EXAMINATION: MM DIAGNOSTIC DIGITAL BREAST TOMOSYNTHESIS, BILATERAL [...] Fatimah Ayon DO 02/18/2025 03:04 PM EDT RP Dictated By: Fatimah Ayon DO Signed By: <Electronically signed by Fatimah Ayon DO in OV> 02/18/25 1504 DD/ 1230 TD/TT: 02/18/25 1255 Utilization Review Specialist: [facility] External Provider IMG BI PROCEDURES Edited Result - Final * HPV DNA, Low/High Risk (11/28/2024 11:15 AM EST) HPV High Risk Negative Negative [facility] HPV Genotype 16 Negative Negative [facility] HPV Genotype 18 Negative Negative [facility] Comment:HPV testing performe d at [facility] (CLIA#[id number]), [address] [place] [address].Testing for HPV was performed using the Rasheed [...] AM EST 11/28/2024 2:00 PM EST Naa Ramírez COMBINATION PRESSER LAB BLOOD ORDERABLES Final Res ult [facility] [address] [place] [phone] * Pap Smear (11/28/2024 11:15 AM EST) Swab Cervix uteri structure / Unknown 11/28/2024 11:15 AM EST 11/28/2024 2:00 PM EST Narrative [facility] - 12/04/2024 10:17 AM EST ----- ------- Name: Lazaro Floyd Age/Sex: 39/F : 1985 Unit#: [id number] Attend Dr: Naa Ramírez Re11/28/24 Status: DEP [facility] Disch: ----- ------- SPEC : [id number] RECD: 11/28/24-1400 STATUS: ERIK MOORE NUM: [id number] JYOTI: 11/28/24-[address] [facility] [address]: Naa Ramírez ENTERED: 11/28/24-1409 SP TYPE: Pap Smr OTHR DR: ORDERED: Pap Smear Interpretation Satisfactory for evaluation. Negative for intraepithelial lesion or malignancy. Fungal organisms consistent with Hiral species. HPV High Risk: Negative HPV Genotyping 16: Negative HPV Genotyping 18: Negative Clinical Information LMP: 11/12/2024 Previous PAP test: Unknown date, remote hx of abnormal Material Received ThinPrep-Cervical ----- ------- Signed (signature on file) AGATHA Carranza ([facility]) 12/04/24 1017 ----- ------- END OF REPORT Naa Ramírez [facility] CYTOLOGY ORDERABLES Final Result Performing Organization Address [facility] Co de Phone Number [facility] [address] [place] [phone] * Hepatitis C Antibody with Reflex to HCV, RNA, Quantitative, Real-Time PCR (05/16/2024 1:28 PM EDT) Pathologist [facility] Hepatitis C Antibody Nonreactive Nonreactive [facility] Comment:Antibodies to HCV no t detected; does not exclude early acuteHCV infection. Blood Venous blood specimen / Unknown 05/16/2024 1:28 PM EDT 05/16/2024 3:51 PM EDT Evelyne Keita [facility] BLOOD ORDERABLES Renuka l Result Performing Organization Address [facility]/ZIP Co de Phone Number [facility] [address] [place] [phone] * HIV-1/2 Antigen and Antibodies, Fourth Generation, with Reflexes (05/16/2024 1:28 PM EDT) Pathologist [facility] HIV AB/AG Nonreactive Nonreactive [facility] Comment:HIV-1 p24 Ag and/or HIV-1/HIV-2 Ab not detected.A test result that is nonreactive does not exclude thepossibility of exposure to or infection with HIV-1 and/orHIV-2. Nonreactive results in this assay for individualswith prior exposure to HIV-1 and/or HIV-2 may be due toantigen and antibody levels that are below the limit ofdetection of this assay.The [employer] HIV Ag/Ab Combo assay result andsupplemental assay results should be interpreted inconjunction with the patient's clinical presentation,history and other laboratory results. If the results areinconsistent with clinical evidence, additional testing issuggested to confirm the result. Blood Venous blood specimen / Unknown 05/16/2024 1:28 PM EDT 05/16/2024 3:51 PM EDT us Evelyne Keita [facility] BLOOD ORDERABLES Renuka del valle Result [facility] [address] [place] [phone] [phone] from Last 3 Months or Most Recently Relevant to Health Maintenance Insurance HSN PARTIAL [facility] 3 DENTAL - HSN PARTIAL (MEDICAID) Care Teams Associate Professor Of Biostatistics Relationship Specialty Start Date End Date Naa Ramírez FNP [address] [place] [phone] PCP - General Family Medicine 08/08/24
== END 2025-04-26 09:49 | disposition home or self-care (01) ==
PROVIDERS: PCP Nurse Practitioner Family; Visit Provider Surgery
DX: N63.12 Unspecified lump in the right breast, upper inner quadrant (principal); R19.01 Right upper quadrant abdominal swelling, mass and lump
CPT/HCPCS: 99213

== ENCOUNTER → 2025-04-26 09:19 | Outpatient (BNVA) | payer OTHER, SELFPAY | PROVIDERS: PCP Nurse Practitioner Family; Visit Provider Surgery | DX: R19.01 Right upper quadrant abdominal swelling, mass and lump (principal); N60.91 Unspecified benign mammary dysplasia of right breast; Z79.810 Long term (current) use of selective estrogen receptor modulators (SERMs) | CPT/HCPCS: 99212 ==

== ENCOUNTER 2025-05-28 09:55 | Outpatient (REF) | payer OTHER, SELFPAY ==
--- NOTE | ~2025-05-28 | US_ITS ---
EXAMINATION: US ABDOMEN LIMITED CLINICAL INFORMATION: Questionable soft tissue mass.. COMPARISON: None available. TECHNIQUE: Limited real-time ultrasound of the region of concern in the right upper quadrant soft tissues using a linear transducer with grayscale and color Doppler technique. FINDINGS: No gross soft tissue mass. No fluid collections. US/US abdomen limited IMPRESSION: Negative exam. Electronically signed by: Enrique Spann MD 05/28/2025 10:32 AM EDT
--- OUTSIDE RECORDS SUMMARY | 2025-05-28 10:46 | XMS_ITS | Clinical Summary ---
Author Organization [employer] Address [address] [facility] 7t [place] [address] Care Team Providers Care Pathologist Assistant Name Role Phone Naa Ramírez CORE JAVA SOFTWARE ENGINEER Primary Care Provider [phone] Allergies No known active allergies Medications * [...] 7 days. 21 capsule 5 05/01/20 25 chlorhexidine (Peridex) 0.12 % solution Use 15 mL in the mouth or throat if needed in the morning, at noon, and at bedtime (PROPHYLAXIS) for up to 5 days. 110 mL 5 04/29/20 25 ibuprofen 800 MG tablet Take 1 tablet (800 mg) by mouth if needed in the morning, at noon, and at bedtime for mild pain or moderate pain for up to 5 days. 15 tablet 5 04/29/20 25 Active Problems Problem Noted Date Diagnosed [...] organization. Date Type Department Care Team Description 05/28/2025 Orders Only [facility] External Provider, [facility] 04/24/2025 10:00 AM EDT Office Visit [facility] ADULT DENTAL [address] [place] [address] Iron Jimenez DMD 04/19/2025 Telephone [facility] MEDICINE [address] [place] [address] Naa Ramírez FNP PATIENT SATISFACTION SURVEY 04/08/2025 Telephone [facility] [address] [place] [address] Delfina Juarez RN 04/05/2025 3:00 PM EDT Office Visit [facility] [address] [place] [address] Naa Ramírez FNP Anxiety and depression (Primary Dx); Reducible bulge of abdominal wall; Elevated blood pressure reading; Abnormal breast exam 04/05/2025 Travel 04/04/2025 Travel 04/04/2025 Telephone [facility] [address] [place] [address] Oni Rodriguez MA Chartprep 03/28/2025 Patient Outreach [facility] MED & PEDS [address] [place] [address] Naa Ramírez FNP Pre-visit Planning (SDOH negative, Tobacco screening negative.) from Last 3 Months Immunizations Immunization Administration [...] Description 06/05/2025 2:00 PM EDT Office Visit [facility] ADULT DENTAL [address] [place] [address] Liz Power DDS [address] [place] [address] Health Maintenance Due Date Last Done Comments Dental Oral Exam 1985 Dental Prophylaxis 1985 Dental X-Ray: Full Mouth 1985 HPV Vaccines (1 - 3-dose series) 2000 Hepatitis A Vaccines (1 of 2 - Risk 2-dose series) 2004 Hepatitis B Vaccines (1 of 3 - 19+ 3-dose series) 2004 Influenza Vaccine (#1) 2025 08/08/2024 Alcohol/Substance Use Screening 08/08/2025 08/08/2024 Family Planning [...] Completed 05/16/2024 Hepatitis C Screening Completed 05/16/2024 HIB Vaccines Aged Out No longer eligi [...] Name Priority Date/Time Associated Diagnosis Comments US ABDOMEN LIMITED Routine 05/28/2025 10 :16 AM EDT CASE PRESENTATION, DETAILED AND EXTENSIVE TREATMENT PLANNING Routine 04/24/2025 10:00 AM EDT BITEWING - SINGLE RADIOGRAPHIC IMAGE Routine 04/24/2025 10:00 AM EDT INTRAORAL - PERIAPICAL FIRST RADIOGRAPHIC IMAGE Routine 04/24/2025 10:00 AM EDT PALLIATIVE (EMERGENCY) TREATMENT OF DENTAL PAIN - MINOR PROCEDURE Routine 04/24/2025 10:00 AM EDT BI US BREAST LIMITED BILATERAL Routine 02/18/2025 1:00 PM EDT HPV DNA, LOW/HIGH RISK Routine 11/28/2024 11:15 AM EST PAP SMEAR Routine 11/28/2024 [...] Relevant to Health Maintenance Results * US Abdomen Limited (05/28/2025 10:16 AM EDT) Anatomical Region Laterality Modality Abdomen Ultrasound 05/28/2025 10:1 6 AM EDT Narrative 05/28/2025 10:35 AM EDT [address] [address] Ultrasound Report Signed Patient: Lazaro Floyd MR#: [id number] 0923 : 1985 Acct:[id number] Age/Sex: 40 / F ADM Date: 05/28/25 Loc: HO.US Attending Dr: Stu Marmolejo MD Ordering Physician: Stu Marmolejo MD Date of Service: 05/28/25 Procedure(s): US abdomen limited Accession Number(s): [id number] cc: Stu Marmolejo MD; Naa Ramírez EXAMINATION: US ABDOMEN LIMITED CLINICAL INFORMATION: Questionable soft tissue mass.. COMPARISON: None available. TECHNIQUE: Limited real-time ultrasound of the region of concern in the right upper quadrant soft tissues using a linear transducer with grayscale and color Doppler technique. FINDINGS: No gross soft tissue mass. No fluid collections. US/US abdomen limited IMPRESSION: Negative exam. Electronically signed by: nErique Spann MD 05/28/2025 10:32 AM EDT RP Dictated By: Enrique Pat MD Signed By: <Electronically signed by Enrique Quezada MD in OV> 05/28/25 1032 DD/ 1016 TD/TT: 05/28/25 1019 Quality Process Engineer: Procedure Note Donotuseinterpreter, Image - 05/28/2025 [place] [address] Ultrasound Report Signed Patient: Rasta Floyd#: [id number] 0923 : 1985Acct:[id number] Age/Sex: 40 / FADM Date: 05/28/25 Loc: HO.US Attending Dr: Stu Marmolejo MD Ordering Physician: Stu Marmolejo MD Date of Service: 05/28/25 Procedure(s): US abdomen limited Accession Number(s): [id number] cc: Stu Marmolejo MD; Naa Ramírez EXAMINATION: US ABDOMEN LIMITED CLINICAL INFORMATION: Questionable soft tissue mass.. COMPARISON: None available. TECHNIQUE: Limited real-time ultrasound of the region of concern in the right upper quadrant soft tissues using a linear transducer with grayscale and color Doppler technique. FINDINGS: No gross soft tissue mass. No fluid collections. US/US abdomen limited IMPRESSION: Negative exam. Electronically signed by: Enrique Spann MD 05/28/2025 10:32 AM EDT RP Dictated By: Enrique Pat MD Signed By: <Electronically signed by Enrique Quezada MDin OV> 05/28/25 1032 DD/ 1016 TD/TT: 05/28/25 1019 Quality Process Engineer: us [facility] External Provider IMG US PROCEDURES Final Result * BI US Breast Limited Bilateral (02/18/2025 1:00 PM EDT) Anatomical Region Laterality Modality Breast Bilateral Ultrasound 02/18/2025 1:00 PM EDT Narrative 02/18/2025 3:07 PM EDT [address] [place] [address] Ultrasound Report Signed Patient: Lazaro Floyd MR#: [id number] 0923 : 1985 Acct:[id number] Age/Sex: 39 / F ADM Date: 02/18/25 Loc: HO.MAMMO Attending Dr: Stu Marmolejo MD Ordering Physician: Stu Marmolejo MD Date of Service: 02/18/25 Procedure(s): US breast BI limited mamm only Accession Number(s): [id number] cc: Stu Marmolejo MD; Naa Ramírez CORE JAVA SOFTWARE ENGINEER EXAMINATION: MM DIAGNOSTIC DIGITAL BREAST TOMOSYNTHESIS, BILATERAL [...] 02/18/25 1504 DD/ 1300 TD/TT: 02/18/25 1337 Quality Process Engineer: Procedure Note Donotuseinterpreter, Image - 02/18/2025 [facility] [address] [place] [address] Ultrasound Report Signed Patient: Lazaro Floyd#: [id number] 0923 : 1985Acct:[id number] Age/Sex: 39 / FADM Date: 02/18/25 Loc: HO.MAMMO Attending Dr: Stu Marmolejo MD Ordering Physician: Stu Marmolejo MD Date of Service: 02/18/25 Procedure(s): US breast BI limited mamm only Accession Number(s): [id number] cc: Stu Marmolejo MD; Naa Ramírez CORE JAVA SOFTWARE ENGINEER EXAMINATION: MM DIAGNOSTIC DIGITAL BREAST TOMOSYNTHESIS, BILATERAL [...] 02/18/25 1504 DD/ 1300 TD/TT: 02/18/25 1337 Quality Process Engineer: [facility] External Provider IM US PROCEDURES Edited Result - Final * HPV DNA, Low/High Risk (11/28/2024 11:15 AM EST) HPV High Risk Negative Negative [facility] HPV Genotype 16 Negative Negative [facility] HPV Genotype 18 Negative Negative [facility] Comment:HPV testing performe d at [facility] (CLIA#[id number]), [address] [place] [phone].Testing for HPV was performed using the Rasheed [...] [facility] LAB BLOOD ORDERABLES Final Res ult [facility] [address] [place] [phone] * Pap Smear (11/28/2024 11:15 AM EST) Swab Cervix uteri structure / Unknown 11/28/2024 11:15 AM EST 11/28/2024 2:00 PM EST Narrative [facility] - 12/04/2024 10:17 AM EST ----- ------- Name: EveerttLandonmargarito Age/Sex: 39/F : 1985 Unit#: [id number] Attend Dr: Naa Ramírez Re11/28/24 Status: DEP [facility] ----- ------- SPEC : [id number] RECD: 11/28/24 STATUS: ERIK MOORE NUM: [id number] JYOTI: 11/28/24-1115 [facility] DR: Naa Ramírez ENTERED: 11/28/24097 SP TYPE: Pap Smr OTHR DR: ORDERED: [...] on file) AGATHA Carranza (ASCP) 12/04/24 1017 ----- ------- END OF REPORT Naa F[facility] LAB CYTOLOGY ORDERABLES Final Result [facility] [address] [place] [address] [phone] * Hepatitis C Antibody with Reflex to HCV, RNA, Quantitative, Real-Time PCR (05/16/2024 1:28 PM EDT) Hepatitis C Antibody Nonreactive Nonreactive [facility] Comment:Antibodies to HCV no t detected; does not exclude early acuteHCV infection. Blood Venous blood specimen / Unknown 05/16/2024 1:28 PM EDT 05/16/2024 3:51 PM EDT Evelyne Keita [facility] LAB BLOOD ORDERABLES Renuka l Result Performing Organization Address [facility] de Phone Number [facility] [address] [place] [phone] * HIV-1/2 Antigen and Antibodies, Fourth Generation, with Reflexes (05/16/2024 1:28 PM EDT) HIV AB/AG Nonreactive Nonreactive [facility] Comment:HIV-1 p24 Ag and/or HIV-1/HIV-2 Ab not detected.A test result that is nonreactive does not exclude thepossibility of exposure to or infection with HIV-1 and/orHIV-2. Nonreactive results in this assay for individualswith prior exposure to HIV-1 and/or HIV-2 may be due toantigen and antibody levels that are below the limit ofdetection of this assay.[employer] HIV Ag/Ab Combo assay result andsupplemental assay [...] l Result Performing Organization Address [facility]/State/ZIP Co de Phone Number [facility] [address] [place] [address] [phone] from Last 3 Months or Most Recently Relevant to Health Maintenance Insurance HSN PARTIAL [facility] 3 DENTAL - HSN PARTIAL (MEDICAID) Care Teams Pathologist Assistant Relationship Specialty Start Date End Date Naa Ramírez FNP [address] [place] [address] PCP - General Family Medicine 08/08/24
== END 2025-05-28 09:56 | disposition home or self-care (01) ==
LOC: HO.US 09:55
PROVIDERS: Visit Provider Surgery
DX: R19.01 Right upper quadrant abdominal swelling, mass and lump (principal)
CPT/HCPCS: 76705

== ENCOUNTER → 2025-05-28 09:57 | Outpatient (BNV) | payer OTHER, SELFPAY | PROVIDERS: Visit Provider Radiology Diagnostic Radiology | DX: R19.01 Right upper quadrant abdominal swelling, mass and lump (principal) | CPT/HCPCS: 76705 ==

== ENCOUNTER → 2025-09-10 13:39 | Outpatient (BNV) | payer OTHER, SELFPAY | PROVIDERS: Visit Provider Internal Medicine | DX: N63.24 Unspecified lump in the left breast, lower inner quadrant (principal) | CPT/HCPCS: 77049 ==

== ENCOUNTER 2025-09-10 13:40 | Outpatient (REF) | payer OTHER, SELFPAY ==
--- NOTE | ~2025-09-10 | MR_ITS ---
EXAMINATION: MR BREAST WITHOUT AND WITH CONTRAST, BILATERAL CLINICAL INFORMATION: 6 month follow-up for enhancing 5 mm oval mass in the left retroareolar region without mammographic or sonographic correlate. COMPARISON: Comparison is made with relevant prior imaging. TECHNIQUE: MR imaging of the breast was performed using T1, T2 and fat saturated techniques. Dynamic multiphase imaging was also performed after the administration of intravenous gadolinium contrast agent. Computer generated 3D reconstruction and enhancement kinetic analysis was ulitized by the radiologist in the interpretation of this examination. FINDINGS: Breast composition: Heterogeneous fibroglandular breast tissue Background parenchymal enhancement: Moderate LEFT BREAST: The previously seen 5 mm enhancing oval mass in the retroareolar region of the left breast anterior depth is no longer seen and likely represented background enhancement. Multiple enhancing skin lesions lower inner left breast anterior depth series 91166 image 22/113 and image 26/113 lower central breast far posterior depth. Recommend clinical evaluation. Also seen series 1043 images 103/126 and 99/126. No suspicious enhancing masses or areas of non mass enhancement. No axillary or internal mammary adenopathy. RIGHT BREAST: Enhancing skin lesion medial right breast central inner series 1043 image 77/126. No suspicious enhancing masses or areas of non mass enhancement. No axillary or internal mammary adenopathy. Limited views of the chest and abdomen are unremarkable. MR/MR breast BI wo/w con IMPRESSION: 1. No MR evidence of malignancy bilateral breasts. 2. Enhancing skin lesions lower inner left breast anterior depth and lower central breast far posterior depth and right breast central inner breast middle depth recommend clinical evaluation and or dermatology consultation for further confirmation. ASSESSMENT: LEFT BREAST: BI-RADS 2-Benign RIGHT BREAST: BI-RADS 1-Negative RECOMMENDATIONS: Yearly screening mammography Yearly Breast MRI screening surveillance. Recommend clinical evaluation for bilateral breast skin lesions as described above. Dermatology consultation could be considered for further confirmation. Electronically signed by: Fatimah Ayon DO 09/13/2025 07:11 AM EST
--- OUTSIDE RECORDS SUMMARY | 2025-09-10 16:50 | XMS_ITS | Encounter Summary ---
Author Organization [employer] Address [address] [facility] [address] [place] [address] Care Team Providers Care Senior Outside Sales Representative Name Role Phone Naa Ramírez Primary Care Provider [phone] Encounter Details Date Type Department Care Team ([facility] st Contact Info) Description 02/14/2023 Abstract [facility] ADULT DENTAL [address] [place] [address] Kamran Martinez DMD [address] [place] [address] Social History Tobacco Use Types Packs/Day Years [...] on filedocumented in this encounter Care Teams Senior Outside Sales Representative Relationship Specialty Start Date End Date Naa Ramírez FNP [address] [place] [address] PCP - General Family Medicine 08/08/24 documented as of this encounter
--- OUTSIDE RECORDS SUMMARY | 2025-09-10 16:50 | XMS_ITS | Clinical Summary ---
Author Organization [employer] Address [address] [facility] [address] [place] [address] Care Team Providers Care [address] Freight Name Role Phone Naa Ramírez MASHA Primary Care Provider [phone] Allergies No known active allergies Medications * This document contains information received from the source organization and may not represent a complete record from that organization. minocycline 100 MG capsuleIndicatio ns:Hidradenitis suppurativa Take 1 capsule (100 mg) by mouth 2 times daily. 180 capsule 4 Active tamoxifen (Nolvadex) 20 MG chemo [...] mouth twice daily until finished 5 Active spironolactone (Aldactone) 100 MG tabletIndication s:Hidradenitis suppurativa TAKE 1 TABLET BY MOUTH EVERY DAY 90 tablet 2 5 Active Active Problems Problem Noted Date Diagnosed Date PTSD (post-traumatic stress disorder) 09/06/2025 Psychological trauma 08/22/2025 Abdominal wall bulge 04/06/2025 Anxiety and depression [...] organization. Date Type Department Care Team Description 09/06/2025 Travel 08/21/2025 2:30 PM EDT Office Visit [facility] MEDICINE [address] [place] [phone] Naa Ramírez FNP Psychological trauma (Primary Dx); Anxiety and depression 08/21/2025 Travel 08/20/2025 Telephone [facility] [address] [place] [address] [phone] Naa Ramírez FNP Charty Prep 07/16/2025 Refill [facility] [address] [place] [address] [phone] Zoraida Leslie MD Hidradenitis suppurativa 06/17/2025 Telephone [facility] ADULT DENTAL [address] [place] [address] [phone] Liz Power DDS from Last 3 Months Immunizations Immunization Administration [...] Answer Date Recorded Patient Health Questionnaire-9 Score 20 09/06/2025 Patient Health Questionnaire-9 Score 20 09/06/2025 Last PHQ-9: Questionnaire Data Not on file [...] Answer Date Recorded Patient Health Questionnaire-2 Score 5 09/06/2025 Internet Access Answer Date Recorded Internet Access [...] Sign Reading Time Taken Comments Blood Pressure 110/80 08/21/2025 2:29 PM EDT Pulse 109 08/21/2025 2:29 PM EDT Temperature 36.9 C (98.4 F) 08/21/2025 2:29 PM EDT Respiratory Rate 20 08/21/2025 2:29 PM EDT Oxygen Saturation 99% 08/21/2025 2:29 PM EDT Inhaled Oxygen Concentration - - Weight 71.7 kg (158 lb) 08/21/2025 2:29 PM EDT Height 154.9 cm (5' 1 ) 08/21/2025 2:29 PM EDT Body Mass Index 29.85 08/21/2025 2:29 PM EDT Plan of Treatment Health Maintenance Due Date Last Done Comments Dental Oral Exam 1985 Dental Prophylaxis 1985 Dental X-Ray: Full Mouth 1985 Alcohol/Substance Use Screening 1997 Family Planning (PISQ) 2000 HPV Vaccines (1 - 3-dose series) 2000 Hepatitis A Vaccines (1 of 2 - Risk 2-dose series) 2004 Hepatitis B Vaccines (1 of 3 - 19+ 3-dose series) 2004 COVID-19 Vaccine (2024-2 6 season) 2025 10/15/2021, 03/09/2021, 02/09/2021 Influenza Vaccine (#1) 2025 08/08/2024 Diagnostic Breast Imaging 08/20/20252024, 02/18/2025, 01/21/2025 Depression Monitoring 03/06/2026 09/06/2025 , 09/06/2025 SDOH Screening 03/28/2026 03/28/2025 Disability Screening 04/05/2026 04/05/2025 Dental X-Ray: Bitewings 04/25/2026 04/24/2025 Tobacco Screening 08/21/2026 08/21/2025 Cervical Cancer Screening 11/28/2029 HPV/Cotest 11/28/2029 11/28/2024 [...] Procedure Name Priority Date/Time Associated Diagnosis Comments BITEWING - SINGLE RADIOGRAPHIC IMAGE Routine 04/24/2025 10:00 AM EDT BI US [...] PM EDT Narrative 02/18/2025 3:07 PM EDT [facility] [address] [place], [place] [address] Ultrasound Report Signed Patient: Lazaro Floyd MR#: [id number] 0923 : 1985 Acct:[id number] Age/Sex: 39 / F ADM Date: 02/18/25 Loc: HO.MAMMO Attending Dr: Stu Marmolejo MD Ordering Physician: Stu Marmolejo MD Date of Service: 02/18/25 Procedure(s): US breast BI limited mamm only Accession Number(s): [id number] cc: Stu Marmolejo MD; Naa Ramírez SMOKING TOBACCO PACKING MACHINE HAND EXAMINATION: MM DIAGNOSTIC DIGITAL BREAST TOMOSYNTHESIS, BILATERAL [...] 02/18/25 1504 DD/ 1300 TD/TT: 02/18/25 1337 Registered Nurses: Procedure Note Donotuseinterpreter, Image - 02/18/2025 [facility] [address] [place] [address] Ultrasound Report Signed Patient: Lazaro Floyd#: [id number] 0923 : 1985Acct:[id number] Age/Sex: 39 / FADM Date: 02/18/25 Loc: HO.MAMMO Attending Dr: Stu Marmolejo MD Ordering Physician: Stu Marmolejo MD Date of Service: 02/18/25 Procedure(s): US breast BI limited mamm only Accession Number(s): [id number] cc: Stu Marmolejo MD; Naa Ramírez SMOKING TOBACCO PACKING MACHINE HAND EXAMINATION: MM DIAGNOSTIC DIGITAL BREAST TOMOSYNTHESIS, BILATERAL [...] 02/18/25 1504 DD/ 1300 TD/TT: 02/18/25 1337 Registered Nurses: [facility] External Provider IMG US PROCEDURES Edited Result - Final * HPV DNA, Low/High Risk (11/28/2024 11:15 AM EST) HPV High Risk Negative Negative [facility] HPV Genotype 16 Negative Negative [facility] HPV Genotype 18 Negative Negative [facility] Comment:HPV testing performe d at [facility] (CLIA#[id number]), [address] [place] [address].Testing for HPV was performed using the Rasheed [...] EST 11/28/2024 2:00 PM EST Naa Ramírez SMOKING TOBACCO PACKING MACHINE HAND LAB BLOOD ORDERABLES Final Res ult [facility] [address] [place] [address] [phone] * Pap Smear (11/28/2024 11:15 AM EST) Swab Cervix uteri structure / Unknown 11/28/2024 11:15 AM EST 11/28/2024 2:00 PM EST Narrative [facility] - 12/04/2024 10:17 AM EST ----- ------- Name: Lazaro Floyd Age/Sex: 39/F : 1985 Unit#: [id number] Attend Dr: Naa Ramírez Re11/28/24 Status: [facility] Disch: ----- ------- SPEC : [id number] RECD: 11/28/24-1400 STATUS: ERIK MOORE NUM: [id number] JYOTI: 11/28/24-[address] [facility] [address]: Naa Ramírez ENTERED: 11/28/24-8889 SP TYPE: Pap Smr OT DR: ORDERED: Pap Smear Interpretation Satisfactory for [...] ----- ------- END OF REPORT Naa Ramírez SMOKING TOBACCO PACKING MACHINE HAND LAB CYTOLOGY ORDERABLES Final Result Performing Organization Address [facility] de Phone Number [facility] [address] [place] [address] [phone] * Hepatitis C Antibody with Reflex to HCV, RNA, Quantitative, Real-Time PCR (05/16/2024 1:28 PM EDT) Hepatitis C Antibody Nonreactive Nonreactive [facility] Comment:Antibodies to HCV no t detected; does not exclude early acuteHCV infection. Blood Venous blood specimen / Unknown 05/16/2024 1:28 PM EDT 05/16/2024 3:51 PM EDT Evelyne Keita [facility] LAB BLOOD ORDERABLES Renuka l Result Performing Organization Address [facility]/ZIP Co de Phone Number [facility] [address] [place], [place] [phone] * HIV-1/2 Antigen and Antibodies, Fourth Generation, with Reflexes (05/16/2024 1:28 PM EDT) Pathologist [facility] HIV AB/AG Nonreactive Nonreactive [facility] Comment:HIV-1 p24 Ag and/or HIV-1/HIV-2 Ab not detected.A test result that is nonreactive does not exclude thepossibility of exposure to or infection with HIV-1 and/orHIV-2. Nonreactive results in this assay for individualswith prior exposure to HIV-1 and/or HIV-2 may be due toantigen and antibody levels that are below the limit ofdetection of this assay.The [employer] HIV Ag/Ab Combo assay result andsupplemental assay results should be interpreted inconjunction with the patient's clinical presentation,history and other laboratory results. If the results areinconsistent with clinical evidence, additional testing issuggested to confirm the result. Blood Venous blood specimen / Unknown 05/16/2024 1:28 PM EDT 05/16/2024 3:51 PM EDT us Evelyne Keita [facility] BLOOD ORDERABLES Renuka del valle Result [facility] [address] [place] [phone] from Last 3 Months or Most Recently Relevant to Health Maintenance Insurance HSN PARTIAL [facility] 3 DENTAL - HSN PARTIAL (MEDICAID) Care Teams [address] Freight Relationship Specialty Start Date End Date Naa Ramírez FNP [address] [place] [address] PCP - General Family Medicine 08/08/24
--- OUTSIDE RECORDS SUMMARY | 2025-09-10 16:50 | XMS_ITS | Encounter Summary ---
Author Organization [employer] Address [address] [facility] [place] [address] Care Team Providers Care Wire Saw Operator Name Role Phone Naa Ramírez RIVET TOSSER Primary Care Provider [phone] Encounter Details Date Type Department Care Team (Latest Contact Info) Description 09/06/2025 Travel Social History Tobacco Use Types Packs/Day Years Used Date Smoking Tobacco: Never Passive Smoke Exposure: Never Smokeless Tobacco: Never Alcohol Use Standard [...] AM EDT documented as of this encounter Functional Status * Over the past 2 weeks, how often have you been bothered by any of the following problems? Question Answer Date of Assessment Author Patient Health Questionnaire-2 Score 5 09/06/2025 3:40 PM EDT Alan Curran * Little interest or pleasure in doing things Answer Date of Assessment Author More than half the days 09/06/2025 3:40 PM EDT Alan Foote * Feeling down, depressed, or hopeless Answer Date of Assessment Author Nearly every day 09/06/2025 3:40 PM EDT Alan Peraza * Trouble falling or staying asleep, or sleeping too much Answer Date of Assessment Author Nearly every day 09/06/2025 3:40 PM EDT Alan Peraza * Feeling tired or having little energy Answer Date of Assessment Author Nearly every day 09/06/2025 3:40 PM EDT Alan Peraza * Poor appetite or overeating Answer Date of Assessment Author More than half the days 09/06/2025 3:40 PM EDT Alan Foote * Feeling bad about yourself - or that you are a failure or have let yourself or your family down Answer Date of Assessment Author Nearly every day 09/06/2025 3:40 PM EDT Alan Peraza * Trouble concentrating on things, such as reading the newspaper or watching television Answer Date of Assessment Author More than half the days 09/06/2025 3:40 PM EDT Alan Foote * Moving or speaking so slowly that other people could have noticed? Or the opposite - being so fidgety or restless that you have been moving around a lot more than usual. Answer Date of Assessment Author More than half the days 09/06/2025 3:40 PM EDT Alan Foote * Thoughts that you would be better off or hurting yourself in some way Answer Date of Assessment Author Not at all 09/06/2025 3:40 PM EDT Alan Franco * Patient Health Questionnaire-9 Score Answer Date of Assessment Author 20 09/06/2025 3:40 PM EDT Alan Franco * How difficult have these problems made it for you to do your work, take care of things at home, or get along with other people? Answer Date of Assessment Author Very difficult 09/06/2025 3:40 PM EDT Alan Franco * Over the last 2 weeks, how often have you been bothered by any of the following problems? Question Answer Date of Assessment Author Feeling nervous, anxious, or on edge 3 09/06/2025 3:41 PM EDT Alan Joyner Not being able to stop or control worrying 3 09/06/2025 3:41 PM EDT Alan Joyner Worrying too much about different things 3 09/06/2025 3:41 PM EDT Alan Joyner Trouble relaxing 3 09/06/2025 3:41 PM EDT Alan Foote Being so restless that it is hard to sit still 3 09/06/2025 3:41 PM EDT Alan Joyner Becoming easily annoyed or irritable 3 09/06/2025 3:41 PM EDT Alan Joyner Feeling afraid as if something awful might happen 0 09/06/2025 3:41 PM EDT Alan Peraza MELLY-7 Total Score 18 09/06/2025 3:41 PM EDT Alan Joyner documented as of this encounter Plan of Treatment Not on file documented as of this encounter Visit Diagnoses Not on filedocumented in this encounter Additional Health Concerns Assessment Noted Time PHQ-9 Depression Total Score: 20 025 3:40 PM EDT documented as of this encounter Care Teams Wire Saw Operator Relationship Specialty Start Date End Date Naa Ramírez FNP [address] [place] [address] PCP - General Family Medicine 08/08/24 documented as of this encounter
--- OUTSIDE RECORDS SUMMARY | 2025-09-10 16:50 | XMS_ITS | Encounter Summary ---
Author Organization [employer] Address [address] [place] [address] Care Team Providers Care Indoor Landscaper/Gardener Name Role Phone Naa Ramírez TRAVEL REGISTERED NURSE NICU Primary Care Provider [phone] Encounter Details Date Type Department Care Team (Late st Contact Info) Description 05/17/2024 Orders Only [facility] MEDICINE [address] [place] [address] Evelyne Keita CNM [address] [place] [address] No history of hepatitis B vaccination (Primary [...] EDT) ~Hepatitis B Surface Antibody REACTIVE Nonreactive [facility] Comment:REACTIVE: > 11.99 mI U/mL Blood Venous blood specimen / Unknown 08/08/2024 11:03 AM EDT 08/08/2024 1:43 PM EDT us Evelyne DONATOM LAB BLOOD ORDERABLES Renuka l Result [facility] [address] [place] [phone] [phone] documented in this encounter Visit Diagnoses Diagnosis No history of hepatitis B vaccination- Primary documented in this encounter Care Teams Indoor Landscaper/Gardener Relationship Specialty Start Date End Date Naa Ramírez FNP [address] [place] [id number] PCP - General Family Medicine 08/08/24 documented as of this encounter
--- OUTSIDE RECORDS SUMMARY | 2025-09-10 16:50 | XMS_ITS | Encounter Summary ---
Author Organization [employer] Address [address] [place] [address] Care Team Providers Care Word Processing Supervisor Name Role Phone Naa Ramírez Primary Care Provider [phone] Encounter Details Date Type Department Care Team ([facility] st Contact Info) Description 12/20/2022 Abstract [facility] [address] [place] [address] Kamran Martinez DMD [address] [place] [address] Social History Tobacco Use Types Packs/Day Years [...] on filedocumented in this encounter Care Teams Word Processing Supervisor Relationship Specialty Start Date End Date Naa Ramírez FNP [address] [place] [address] PCP - General Family Medicine 08/08/24 documented as of this encounter
--- OUTSIDE RECORDS SUMMARY | 2025-09-10 16:50 | XMS_ITS | Encounter Summary ---
Author Organization [employer] [facility] Address [address] [place] [address] Care Team Providers Care Gang Knife Fish Chopper Name Role Phone Naa Ramírez Primary Care Provider Encounter Details Date Type Department Care Team (Latest Contact Info) Description 01/15/2021 Abstract [facility] CONVERSIONS Dental, Provider, DDS Social History [...] on filedocumented in this encounter Care Teams Gang Knife Fish Chopper Relationship Specialty Start Date End Date Naa Ramírez FNP [address] [place] [id number] PCP - General Family Medicine 08/08/24 documented as of this encounter
== END 2025-09-10 13:41 | disposition home or self-care (01) ==
LOC: HO.MRI 13:40
PROVIDERS: Visit Provider Surgery
DX: N60.91 Unspecified benign mammary dysplasia of right breast (principal); Z91.89 Other specified personal risk factors, not elsewhere classified
CPT/HCPCS: 77049; A9585